=== PATIENT | female | born 1930 | race Caucasian/White ===

== ENCOUNTER 2016-03-17 00:01 | Emergency (ER) | payer MEDICARE, BC ==
[2016-03-17] MEDS ORDERED: Aspirin Low Dose CHEW TAB* 81 MG PO ONE (00:03)
[2016-03-17 00:40] LABS: Hematocrit 37 % (35-47); Hemoglobin 11.9 g/dl (12.0-16.0); Mean Corpuscular HGB Conc 32 g/dl (31-36); Mean Corpuscular Hemoglobin 28 pg (27-31); Mean Corpuscular Volume 85 fL (80-97); Mean Platelet Volume 8 um3 (7.4-10.4); Red Blood Count 4.31 10^6/ul (4.0-5.4); Red Cell Distribution Width 18 % (10.5-15)
[2016-03-17 00:48] LABS: Albumin 4.1 g/dL (3.2-5.2); BUN/Creatinine Ratio 31.3 (8-20); Calcium 9.7 mg/dL (8.6-10.3); EGFR African American 57.8 (>60); Globulin 3.2 g/dL (2-4); Magnesium 2.1 mg/dL (1.9-2.7); Potassium 4.4 mmol/L (3.5-5.0); Total Bilirubin 0.3 mg/dL (0.2-1.0); Total Protein 7.3 g/dL (6.4-8.9)
[2016-03-17 00:50] LABS: Troponin I 0.03 ng/mL (<0.04)
--- NOTE | 2016-03-17 02:02 | ED ---
Lorie Ventura Janilya, scribed for Adolfo Tracy MD on 03/17/16 at 0005 . HPI Chest Pain - HPI Summary HPI Summary: An 85 y/o female was BIBA to [facility] presenting w/ a gradual onset of constant CP for about a few months. The pt was recently seen at the hospital for the same issue. The EKG showed abnormalities. She was advised to see a primary care provider to follow up with the problem. Pt did not oblige. Last night, pt was awoken from her sleep due to CP. She states that pain radiates from her chest to her arms and into her throat. Yesterday at approximately 2100, the pain occurred once again but it resolved within half an hour. - History of Current Complaint Time Seen by Provider: 03/17/16 00:02 Hx Obtained From: Patient, EMS Onset/Duration: Started Weeks Ago, Atraumatic, Still Present Timing: Constant Initial Severity: Moderate Current Severity: Moderate Chest Pain Location: Diffuse Chest Pain Radiates: Yes Chest Pain Radiates To:: Arm, Neck - throat Aggravating Factor(s): Nothing Alleviating Factor(s): Nothing Associated Signs and Symptoms: Positive: Chest Pain - Allergy/Home Medications Allergies/Adverse Reactions: Allergies Allergy/AdvReac Type Severity Reaction Status Date / Time Codeine Allergy GI Upset Verified 10/20/15 07:23 Latex Allergy Hives/Diff. Verified 10/20/15 07:23 Breathing/I tching Sulfa Antibiotics Allergy Hives Verified 10/20/15 07:23 PMH/Surg Hx/FS Hx/Imm Hx Previously Healthy: Yes Endocrine/Hematology History: Reports: Hx Diabetes, Hx Thyroid Disease - hypothyroidism Cardiovascular History: Reports: Hx Hypertension Denies: Hx Congestive Heart Failure GI History: Reports: Hx Gastroesophageal Reflux Disease History: Reports: Hx Chronic Renal Failure Denies: Hx Renal Disease Neurological History: Reports: Other Neuro Impairments/Disorders - parkinson's Psychiatric History: Reports: Hx Depression - Cancer History Cancer Type, Location and Year: skin - Surgical History Surgery Procedure, Year, and Place: HYSTERECTOMY, APPY, CHOLECYSTECTOMY, HX OF COLOSTOMY - Social History Occupation: Retired Alcohol Use: None Substance Use Type: Reports: None Smoking Status (MU): Never Smoked Tobacco Review of Systems Negative: Fever Positive: Chest Pain All Other Systems Reviewed And Are Negative: Yes Physical Exam Triage Information Reviewed: Yes Vital Signs On Initial Exam: Initial Vitals Temp Pulse Resp BP Pulse Ox 97.5 F 73 16 136/79 95 03/17/16 00:02 03/17/16 00:02 03/17/16 00:02 03/17/16 00:02 03/17/16 00:02 Vital Signs Reviewed: Yes Completion Of Physical Exam Limited Due To: Dementia Appearance: Positive: No Pain Distress Skin: Positive: Warm Eyes: Positive: URSZULA ENT: Positive: Hearing grossly normal Neck: Positive: Supple Respiratory/Lung Sounds: Positive: Clear to Auscultation, Breath Sounds Present Cardiovascular: Positive: Normal Abdomen Description: Positive: Nontender, Soft Bowel Sounds: Positive: Present Musculoskeletal: Positive: Strength/ROM Intact Neurological: Positive: Sensory/Motor Intact Diagnostics - Vital Signs Vital Signs Temp Pulse Resp BP Pulse Ox 03/17/16 00:47 68 19 92 03/17/16 00:46 130/55 03/17/16 00:02 97.5 F 73 16 136/79 95 - Laboratory Lab Results: Lab Results 03/17/16 03/17/16 03/17/16 Range/Units 00:15 00:15 00:15 WBC 11.0 H (3.5-10.8) 10^3/ul RBC 4.31 (4.0-5.4) 10^6/ul Hgb 11.9 L (12.0-16.0) g/dl Hct 37 (35-47) % MCV 85 (80-97) fL MCH 28 (27-31) pg MCHC 32 (31-36) g/dl RDW 18 H (10.5-15) % Plt Count 189 (150-450) 10^3/ul MPV 8 (7.4-10.4) um3 Neut % (Auto) 76.5 (38-83) % Lymph % (Auto) 13.0 L (25-47) % [place] % (Auto) 7.2 (1-9) % Eos % (Auto) 2.9 (0-6) % Baso % (Auto) 0.4 (0-2) % Absolute Neuts (auto) 8.4 H (1.5-7.7) 10^3/ul Absolute Lymphs (auto) 1.4 (1.0-4.8) 10^3/ul Absolute Monos (auto) 0.8 (0-0.8) 10^3/ul Absolute Eos (auto) 0.3 (0-0.6) 10^3/ul Absolute Basos (auto) 0 (0-0.2) 10^3/ul Absolute Nucleated RBC 0 10^3/ul Nucleated RBC % 0 Sodium 137 (133-145) mmol/L Potassium 4.4 (3.5-5.0) mmol/L Chloride 104 (101-111) mmol/L Carbon Dioxide 24 (22-32) mmol/L Anion Gap 9 (2-11) mmol/L BUN 36 H (6-24) mg/dL Creatinine 1.15 H (0.51-0.95) mg/dL Est GFR ( Amer) 57.8 (>60) Est GFR (Non-Af Amer) 45.0 (>60) BUN/Creatinine Ratio 31.3 H (8-20) Glucose 167 H (70-100) mg/dL Lactic Acid 1.5 (0.5-2.0) mmol/L Calcium 9.7 (8.6-10.3) mg/dL Magnesium 2.1 (1.9-2.7) mg/dL Total Bilirubin 0.30 (0.2-1.0) mg/dL AST 37 (13-39) U/L ALT 17 (7-52) U/L Alkaline Phosphatase 104 (34-104) U/L Total Creatine Kinase 96 (10-223) U/L Troponin I 0.03 (<0.04) ng/mL Total Protein 7.3 (6.4-8.9) g/dL Albumin 4.1 (3.2-5.2) g/dL Globulin 3.2 (2-4) g/dL Albumin/Globulin Ratio 1.3 (1-3) Result Diagrams: 03/17/16 00:15 03/17/16 00:15 Lab Statement: Any lab studies that have been ordered have been reviewed, and results considered in the medical decision making process. - EKG 0014 Cardiac Rate: NL - 70 bpm EKG Rhythm: Sinus Rhythm Ectopy: None EKG Interpretation: RBBB Re-Evaluation - Re-Evaluation First Eval Change: Improved - painfree Chest Pain Course/Dx - Diagnoses Provider Diagnoses: Chest pain Discharge - Discharge Plan Condition: Stable Disposition: DETENTION FACILITY Patient Education Materials: Chest Pain (ED) Referrals: [facility] [place] [facility] [Outside] Additional Instructions: Follow up with a primary care provider. The documentation as recorded by the Lorie greer Janilya accurately reflects the service I personally performed and the decisions made by me, Adolfo Tracy MD.
[2016-03-17 02:40] VITALS: BP 116/66
--- NOTE | 2016-03-17 07:43 | RAD ---
HISTORY: Chest pain COMPARISONS: None VIEWS: 2: Frontal dual-energy and lateral views of the chest. FINDINGS: CARDIOMEDIASTINAL SILHOUETTE: The cardiomediastinal silhouette is normal. ARMIN: The armin are normal. PLEURA: The costophrenic angles are sharp. No pleural abnormalities are noted. LUNG PARENCHYMA: There is hyperinflation with flattening of the diaphragm and expansion of the AP diameter of the chest. ABDOMEN: The upper abdomen is clear. There is no subphrenic gas. BONES AND SOFT TISSUES: Degenerative changes are noted along the spine. OTHER: None. IMPRESSION: HYPERINFLATION, CONSISTENT WITH COPD. NO ACTIVE CARDIOPULMONARY DISEASE.
== END 2016-03-17 02:42 ==
LOC: ED 00:01
DX: R07.9 Chest pain, unspecified (principal); E11.9 Type 2 diabetes mellitus without complications; E03.9 Hypothyroidism, unspecified; I10 Essential (primary) hypertension; K21.9 Gastro-esophageal reflux disease without esophagitis; G20 Parkinson's disease; Z88.2 Allergy status to sulfonamides; Z79.82 Long term (current) use of aspirin
CPT/HCPCS: 36415; 71020; 80053; 82550; 83605; 83735; 84484; 85025; 93005; 99283; A9270-GY

== ENCOUNTER 2017-01-20 07:11 | Day surgery (SDC) | payer MEDICARE, BC ==
--- NOTE | 2017-01-10 12:41 | HP ---
PREOPERATIVE HISTORY AND PHYSICAL: DATE OF SURGERY/ADMISSION: 01/16/17 [facility] DATE OF OFFICE/ENCOUNTER: 12/22/16 PRIMARY CARE PHYSICIAN: Dr. Luis Funk. ATTENDING SURGEON: Le Corona MD * (DICTATED BY LORE JUAREZ) PROCEDURE: Right wrist carpal tunnel release. CHIEF COMPLAINT: Right hand numbness and tingling. HISTORY OF PRESENT ILLNESS: This is an 86-year-old female who complaints of tingling, numbness and pain in her right hand. This has been going on for quite some time. She had a nerve conduction study done in 2014, which showed severe carpal tunnel syndrome. She is currently residing in a [facility] because of her multiple medical problems including Parkinson's disease. She does not have dementia. She rates her pain is 3 to 4/10. She is seeking a permanent solution to the problem and has consented to proceed with the right wrist carpal tunnel release. We will get clearance from the patient's physician at her assisted living facility, Dr. Luis Funk. PAST MEDICAL HISTORY: 1. Diabetes. 2. Hypothyroidism. 3. Parkinson's. 4. Gout. 5. History of left humerus fracture. 6. Depression/anxiety. 7. Glaucoma. 8. History of chest pain with heart murmur. 9. Chronic kidney disease. 10. Restless legs syndrome. 11. GERD. 12. Peripheral vascular disease. PAST SURGICAL HISTORY: 1. Colostomy secondary to diverticulitis. 2. Back surgery. 3. Hysterectomy. 4. Appendectomy. 5. Knee surgery. 6. Shoulder surgery. CURRENT MEDICATIONS: 1. Acetaminophen 325 mg 2 tabs q.4 hours p.r.n. pain and fever. 2. Allopurinol 300 mg daily. 3. Aspirin adult low strength 81 mg daily. 4. Atorvastatin calcium 40 mg daily. 5. Carbidopa/levodopa ER 50/200 mg t.i.d. 6. Depakote 250 mg daily. 7. Glucagon Emergency 1 mg as directed. 8. Perry 5/325 one tab p.o. q.4 hours p.r.n. 9. Isosorbide mononitrate ER 30 mg 1 tab daily. 10. Latanoprost 0.005% one drop both eyes daily. 11. Lantus 100 units/mL 60 units as directed. 12. Magnesium oxide 400 mg b.i.d. 13. Milk of magnesia 400 mg/5 mL 30 mL p.r.n. 14. MiraLAX 3350 NF 17 g every other day. 15. Multivitamin daily. 16. Nitrostat 0.4 mg 1 sublingual q.5 minutes up to 3 doses p.r.n. 17. NovoLog 100 units/mL 18 units with breakfast, 24 units with lunch, 22 units with dinner. 18. Pramipexole dihydrochloride 1.5 mg 3 times a day. 19. Sertraline HCl 100 mg daily. 20. Synthroid 88 mcg daily. 21. Toprol-XL 25 mg daily. 22. Vitamin D3 1000 units 2 daily. ALLERGIES: CODEINE, INDOMETHACIN, LATEX, LISINOPRIL, SULFA ANTIBIOTICS, reactions unknown. FAMILY MEDICAL HISTORY: Noncontributory. SOCIAL HISTORY: The patient resides at [facility] at an assisted living facility. She denies tobacco use, recreational drug use and does not drink alcohol. REVIEW OF SYSTEMS: General: Negative for fevers, chills, or night sweats. Reports some trouble with anesthesia in the past when she had her colostomy performed; however, she is not quite clear with details. HEENT: Negative for headache, lightheadedness, or syncopal episodes. Integumentary: Negative for abrasions, lesions, or open wounds. Cardiothoracic: Positive for history of chest pain. No chest pain currently. Negative for hypertension, palpitations, or edema. Pulmonary: Negative for shortness of breath with exertion, chronic cough, COPD. GI: Negative for nausea, vomiting, or diarrhea. Positive for GERD. : Positive for history of UTIs. Negative for nocturia, urinary frequency or urgency, history of chronic kidney disease. Musculoskeletal: Positive for current complaint. Positive for history of left humerus fracture. Neurologic: Positive for dysesthesias in right hand. Negative for history of seizure, stroke, or epilepsy. Positive for anxiety/depression. Endocrine: Positive for diabetes type 1 and hypothyroidism. Hematologic: Negative for easy bruising, anemia, excessive bleeding, or history of DVT. Infectious Disease: Negative for history of MRSA, hepatitis C, or HIV. PHYSICAL EXAMINATION GENERAL: Well-developed, well-nourished 86-year-old female in no acute distress. She ambulates with a walker unassisted, but mainly is in a wheelchair. VITAL SIGNS: Height 5 feet 4 inches, weight 199 pounds, pulse rate 68, blood pressure 138/88. HEENT: Normocephalic, atraumatic. Pupils are equal, round and reactive to light and accommodation. Extraocular movements are intact. Throat is clear. NECK: Supple. No palpable lymph nodes. PULMONARY: Lungs are clear to auscultation bilaterally. No wheezes, rales, or rhonchi. CARDIOVASCULAR: Regular rate and rhythm. S1, S2. Murmur detected with auscultation. No rubs or gallops. No edema. ABDOMEN: Positive bowel sounds, soft, nontender. MUSCULOSKELETAL: On inspection of her right upper extremity and right hand, she has marked thenar wasting, weakness with thumb abduction, positive Tinel's sign at the median nerve of the wrist. She has trouble making a full fist due to some arthritic changes in her fingers. Her wrist motion is mildly limited. NEUROLOGIC: Alert and oriented x3. Cranial nerves II through XII are intact. IMPRESSION: Right carpal tunnel syndrome. PLAN: The patient is scheduled to undergo a right wrist carpal tunnel release with Dr. Corona on 01/16/17. She will return to the office 10 to 14 days postop for followup and suture removal. The patient has oxycodone and tramadol for other prescribers that she will plan on using for postoperative pain if necessary and we will get medical clearance prior to proceeding with surgery from Dr. Luis Funk, the physician at [facility]. LORE JUAREZ [id number]/KEHINDE #: [id number] LINDA
[~2017-01-20 07:11] MED LIST: Buffered Lidocaine 0.9% SYRIN* 5 ML/SYR SYRINGE INTRADERM ONE
[2017-01-20] MEDS ORDERED: Lidocaine 1% INJ* 10 MG/ML 30 ML SDV ONE (08:02)
[2017-01-20] MEDS ORDERED: Metoprolol Succinate XL TAB* 25 MG ONE (08:07)
[2017-01-20] MEDS ORDERED: fentaNYL* 50 MCG/ML 2 ML VIAL (100 MCG VIAL) ONE (08:17)
[2017-01-20] MEDS ORDERED: Propofol* 10 MG/ML 20 ML BTL IV PUSH ONE (08:17)
[2017-01-20] MEDS ORDERED: Lidocaine 2% PF * 5 ML VIAL ONE (08:17)
[2017-01-20 09:53] VITALS: BP 142/43
--- NOTE | 2017-01-21 01:22 | OP ---
DATE OF OPERATION: 01/20/17 [facility] DATE OF : 32 SURGEON: Le Corona MD [facility] MANAGER: LORE Wong ANESTHESIA: Local MAC. PRE-OP DIAGNOSIS: Right carpal tunnel syndrome. POST-OP DIAGNOSIS: Right carpal tunnel syndrome. OPERATIVE PROCEDURE: Right carpal tunnel release. INDICATIONS: Ayanna is an 86-year-old female with numbness and tingling in the median nerve distribution of her right hand. She presents for right carpal tunnel release. ESTIMATED BLOOD LOSS: Zero. TOURNIQUET TIME: 5 minutes. DESCRIPTION OF PROCEDURE: The patient was brought to the operating room and was given a sedation anesthetic and a local infiltration of 10 cc of 1% plain lidocaine in the palm of her right hand. Skin of her right hand and forearm was prepped and draped in the usual sterile fashion. The hand and forearm were exsanguinated and tourniquet elevated to 250 mmHg. A longitudinal incision was made in the palm in line with the ring finger. We dissected through the subcutaneous tissue sharply with a knife and then more proximally with the scissors. The nerve was dissected free from surrounding tissue and there was an area of significant compression at the mid portion of the ligament. The wound was irrigated and the skin edges were reapproximated with 4-0 nylon suture. The wound was dressed with Xeroform, 4x4, Webril, and an Hernando wrap. The patient tolerated the procedure well and was brought to the recovery room in good condition. [id number]/[facility] #: [id number] MTDD
== END 2017-01-20 09:21 | disposition home or self-care (01) ==
LOC: OREAST 07:11
PROVIDERS: ATTEND Orthopaedic Surgery
DX: G56.01 Carpal tunnel syndrome, right upper limb (principal); E11.9 Type 2 diabetes mellitus without complications; Z79.4 Long term (current) use of insulin; E03.9 Hypothyroidism, unspecified; G20 Parkinson's disease; M10.9 Gout, unspecified; F41.8 Other specified anxiety disorders; H40.9 Unspecified glaucoma; R01.1 Cardiac murmur, unspecified; R07.9 Chest pain, unspecified; N18.9 Chronic kidney disease, unspecified; G25.81 Restless legs syndrome; I73.9 Peripheral vascular disease, unspecified; K21.9 Gastro-esophageal reflux disease without esophagitis
CPT/HCPCS: J2704; J3010

== ENCOUNTER 2017-04-18 15:16 | Inpatient (IN) | payer MEDICARE, BC ==
[2017-04-18] MEDS ORDERED: NS 0.9% 1000 ML* 1,000 ML IV ONE ×2 (15:56→18:26)
[2017-04-18 16:32] LABS: ABS Basophils 0.1 10^3/ul (0-0.2); ABS Eosinophils 0.3 10^3/ul (0-0.6); ABS Lymphocytes 1.3 10^3/ul (1.0-4.8); ABS Monocytes 0.7 10^3/ul (0-0.8); ABS Neutrophils 6.5 10^3/ul (1.5-7.7); ABS Nucleated RBC 0 10^3/ul; Eosinophil % 3.1 % (0-6); Hematocrit 35 % (35-47); Hemoglobin 11.3 g/dl (12.0-16.0); Lymphocyte % 14.2 % (25-47); Mean Corpuscular HGB Conc 33 g/dl (31-36); Mean Corpuscular Hemoglobin 28 pg (27-31); Mean Corpuscular Volume 84 fL (80-97); Mean Platelet Volume 8 um3 (7.4-10.4); Nucleated Red Blood Cells % 0.1; Platelet Count 195 10^3/ul (150-450); Red Cell Distribution Width 18 % (10.5-15); White Blood Count 8.9 10^3/ul (3.5-10.8)
[2017-04-18 16:40] LABS: INR 0.94 (0.77-1.02)
[2017-04-18 16:42] LABS: EGFR Non-African American 32.3 (>60)
[2017-04-18] MEDS ORDERED: Iodixanol* (CONTRAST) 320 MG/ML 100 ML SDV IV ONE (17:13)
[2017-04-18 17:17] LABS: Urine Appearance Cloudy; Urine Blood Negative (Negative); Urine Color Yellow; Urine Ketones Negative (Negative); Urine Protein 2+(100 mg/dL) (Negative); Urine Urobilinogen Negative (Negative)
--- NOTE | 2017-04-18 17:49 | RAD ---
CLINICAL HISTORY: Left sided abdominal pain, hernia, colostomy COMPARISON: October 20, 2015 TECHNIQUE: Multiple contiguous axial CT scans were obtained of the abdomen and pelvis after the administration of intravenous contrast. Coronal and sagittal multiplanar reformations are submitted for review. Oral contrast was administered. Delayed images were obtained through the abdomen and pelvis. FINDINGS: LUNG BASES: The lung bases are clear. LIVER: The liver is diffusely low in attenuation compared to the spleen. There are no focal hepatic parenchymal masses. BILE DUCTS: There is mild intrahepatic biliary dilatation. There is ectasia of the common duct up to 1 cm. GALLBLADDER: The gallbladder is not clearly visualized. PANCREAS: There is fatty atrophy of the pancreas. SPLEEN: Normal in size and appearance. UPPER GI TRACT: Evaluation of the gastrointestinal tract is limited by incomplete gastric distention. The upper GI tract is unremarkable. SMALL BOWEL AND MESENTERY: The small bowel is normal in contour, course, and caliber. There is no obstruction or dilatation. COLON: The colon is normal in contour, course, caliber. There is no pericolonic inflammatory change. A colostomy is noted ADRENALS: There is a left adrenal nodule, measuring approximately 2.6 cm, stable from the previous examination. KIDNEYS: There is simple renal cyst on the right. There is no appreciable hydronephrosis or nephrolithiasis. BLADDER: The bladder is smooth in contour. PELVIC ORGANS: The pelvic organs are not visualized. AORTA: There is calcific atherosclerotic disease of the abdominal aorta and its branches, without aneurysmal dilatation IVC: Unremarkable LYMPH NODES: There is no lymphadenopathy by size criteria. ABDOMINAL WALL: There is a large right sided ventral hernia containing the majority of the small bowel large bowel and portions of the stomach with the associated mesentery. There is a second left-sided ventral hernia that appears to be a parastomal hernia, containing a portion of large bowel. There is no appreciable evidence of obstruction. The appearance is similar to the previous examination. BONES AND SOFT TISSUES: There is diffuse osteopenia. Degenerative changes are noted of the spine. The patient is status post laminectomy and spinal fusion. OTHER: None IMPRESSION: 1. AGAIN NOTED ARE LARGE VENTRAL HERNIAS CONTAINING THE MAJORITY OF THE BOWEL WITHOUT OBSTRUCTION. 2. THERE IS MILD BILIARY DILATATION. THERE IS NO APPRECIABLE OBSTRUCTING MASS OR STONE. 3. POSTSURGICAL CHANGE. 4. ATHEROSCLEROSIS. 5. STABLE LEFT ADRENAL NODULE
[2017-04-18] MEDS ORDERED: Morphine INJ* 4 MG/ML 1 ML CARPUJECT IV ONE (18:26)
[2017-04-18] MEDS ORDERED: Ondansetron INJ* 2 MG/ML VIAL IV ONE (18:26)
[2017-04-18] MEDS ORDERED: Morphine INJ* 2 MG/ML 1 ML CARPUJECT ONE (18:31)
[2017-04-18] MEDS ORDERED: Morphine INJ* 2 MG/ML 1 ML CARPUJECT IV ONE (18:33)
[2017-04-18] MEDS ORDERED: Dextrose 50% Syringe 50 ML* 25 GM/50 ML SYRINGE IV PUSH PRN (19:59)
[2017-04-18] MEDS ORDERED: Nitroglycerin TAB 0.4 MG* 0.4 MG TAB SL PRN (20:00)
[2017-04-18] MEDS ORDERED: ALPRAZolam TAB* 0.25 MG PO PRN (20:00)
[2017-04-18] MEDS ORDERED: Insulin GLARGINE(*) 1 UNITS UNIT SUBCUT SCH (20:00)
[2017-04-18] MEDS ORDERED: Acetaminophen TAB* 325 MG PO PRN (20:00)
[2017-04-18] MEDS ORDERED: Magnesium Hydroxide LIQ* 30 ML UDC PO PRN (20:00)
[2017-04-18] MEDS ORDERED: Ondansetron INJ* 2 MG/ML VIAL IV PRN (20:05)
--- NOTE | 2017-04-18 21:35 | ED ---
Shun Ventura Sixian, scribed for Elder Ponce MD on 04/18/17 at 1553 . Abdominal Pain/Female - HPI Summary HPI Summary: This patient is an 86 year old F BIBA to ED with a chief complaint of left- sided abdominal pain since last night. Pt reports that its like a knife went through my stomach. The patient rates the pain 5/10 in severity. Symptoms aggravated and alleviated by nothing. Patient reports normal BM, dry mouth. Patient denies fever, chills. - History of Current Complaint Chief Complaint: EDAbdPain Stated Complaint: ABD PAIN Time Seen by Provider: 04/18/17 15:33 Hx Obtained From: Patient Onset/Duration: Gradual Onset, Lasting Days, Still Present Timing: Constant Severity Currently: Moderate Pain Intensity: 5 Pain Scale Used: 0-10 Numeric Location: Other - L-sided Aggravating Factor(s): Nothing Alleviating Factor(s): Nothing Associated Signs and Symptoms: Positive: Other: - Patient reports normal BM, dry mouth. Patient denies fever, chills Allergies/Adverse Reactions: Allergies Allergy/AdvReac Type Severity Reaction Status Date / Time latex Allergy Intermediate Hives/Diff. Verified 04/18/17 18:32 Breathing/I tching Sulfa (Sulfonamide Allergy Intermediate Hives/Rash Verified 04/18/17 18:32 Antibiotics) codeine AdvReac Mild GI Upset Verified 04/18/17 18:32 Home Medications: Home Medications Cholecalciferol TAB* [Vitamin D TAB*] 2,000 units PO QAM 04/18/17 [History Confirmed 04/18/17] Divalproex DR TAB(*) [Depakote DR TAB(*)] 250 mg PO .QPM WITH FOOD 04/18/17 [ History Confirmed 04/18/17] Ibuprofen TAB* [Motrin TAB* 600 MG] 600 mg PO Q8H PRN 04/18/17 [History Confirmed 04/18/17] Insulin ASPART (NF) [Novolog (NF)] 20 units SUBCUT 0800 04/18/17 [History Confirmed 04/18/17] Insulin ASPART (NF) [Novolog (NF)] 24 units SUBCUT 1200,1800 04/18/17 [History Confirmed 04/18/17] Levothyroxine TAB* [Synthroid TAB*] 125 mcg PO QAM 04/18/17 [History Confirmed 04/18/17] Metoprolol Succinate XL TAB* [Toprol XL TAB*] 25 mg PO QAM 04/18/17 [History Confirmed 04/18/17] oxyCODONE TAB* [Roxycodone TAB 5 mg*] 10 mg PO Q2H PRN 04/18/17 [History Confirmed 04/18/17] PMH/Surg Hx/FS Hx/Imm Hx Endocrine/Hematology History: Reports: Hx Diabetes, Hx Thyroid Disease - hypothyroidism Cardiovascular History: Reports: Hx Cardiomegaly, Hx Congestive Heart Failure, Hx Hypertension GI History: Reports: Hx Gastroesophageal Reflux Disease, Hx Hiatal Hernia, Other GI Disorders - has a colostomy History: Reports: Hx Chronic Renal Failure Denies: Hx Renal Disease Musculoskeletal History: Reports: Hx Arthritis, Other Musculoskeletal History - gout Sensory History: Reports: Hx Cataracts, Hx Contacts or Glasses, Hx Glaucoma, Hx Hearing Aid Opthamlomology History: Reports: Hx Cataracts, Hx Contacts or Glasses, Hx Glaucoma Neurological History: Reports: Hx Headaches, Hx Migraine, Hx Nerve Disease - restless legs syndrome, Hx Seizures - myoclonic, Other Neuro Impairments/ Disorders - parkinson's Psychiatric History: Reports: Hx Anxiety, Hx Depression - Cancer History Cancer Type, Location and Year: skin Hx Chemotherapy: No - Surgical History Surgery Procedure, Year, and Place: HYSTERECTOMY, APPY, CHOLECYSTECTOMY, HX OF COLOSTOMY. partial bowel obstruction,. eye surgery x3 Hx Anesthesia Reactions: No Infectious Disease History: No Infectious Disease History: Denies: Traveled Outside the [place] in Last 30 Days - Social History Alcohol Use: None Substance Use Type: Reports: None Smoking Status (MU): Never Smoked Tobacco Review of Systems Constitutional: Negative - chills Negative: Chills Positive: Other - dry mouth Positive: Abdominal Pain Genitourinary: Other - Normal BM All Other Systems Reviewed And Are Negative: Yes Physical Exam - Summary Physical Exam Summary: General: well-appearing, mild pain distress Skin: warm, color reflects adequate perfusion, dry Head: normal Eyes: EOMI, URSZULA ENT: oral mucousal dry Neck: supple, nontender Respiratory: CTA, breath sounds present Cardiovascular: RRR Abdomen: soft, L upper tender to palpation Bowel: Hypoactive bowel sounds. Colectomy bag with minimal stool/light brown in color. Musculoskeletal: normal, strength/ROM intact Neurological: normal, sensory/motor intact, A&O x3 Psychological: affect/mood appropriate Triage Information Reviewed: Yes Vital Signs On Initial Exam: Initial Vitals Temp Pulse Resp BP Pulse Ox 98.4 F 63 16 100/33 91 04/18/17 15:34 04/18/17 15:34 04/18/17 15:34 04/18/17 15:34 04/18/17 15:34 Vital Signs Reviewed: Yes Diagnostics - Vital Signs Vital Signs Temp Pulse Resp BP Pulse Ox 04/18/17 15:34 98.4 F 63 16 100/33 91 - Laboratory Lab Results: Lab Results 04/18/17 04/18/17 04/18/17 Range/Units 16:15 16:15 16:15 WBC 8.9 (3.5-10.8) 10^3/ul RBC 4.10 (4.0-5.4) 10^6/ul Hgb 11.3 L (12.0-16.0) g/dl Hct 35 (35-47) % MCV 84 (80-97) fL MCH 28 (27-31) pg MCHC 33 (31-36) g/dl RDW 18 H (10.5-15) % Plt Count 195 (150-450) 10^3/ul MPV 8 (7.4-10.4) um3 Neut % (Auto) 73.8 (38-83) % Lymph % (Auto) 14.2 L (25-47) % [place] % (Auto) 8.2 H (0-7) % Eos % (Auto) 3.1 (0-6) % Baso % (Auto) 0.7 (0-2) % Absolute Neuts (auto) 6.5 (1.5-7.7) 10^3/ul Absolute Lymphs (auto) 1.3 (1.0-4.8) 10^3/ul Absolute Monos (auto) 0.7 (0-0.8) 10^3/ul Absolute Eos (auto) 0.3 (0-0.6) 10^3/ul Absolute Basos (auto) 0.1 (0-0.2) 10^3/ul Absolute Nucleated RBC 0 10^3/ul Nucleated RBC % 0.1 INR (Anticoag Therapy) 0.94 (0.77-1.02) APTT 36.6 H (26.0-36.3) seconds Sodium 136 (133-145) mmol/L Potassium 4.9 (3.5-5.0) mmol/L Chloride 104 (101-111) mmol/L Carbon Dioxide 26 (22-32) mmol/L Anion Gap 6 (2-11) mmol/L BUN 33 H (6-24) mg/dL Creatinine 1.53 H (0.51-0.95) mg/dL Est GFR ( Amer) 41.5 (>60) Est GFR (Non-Af Amer) 32.3 (>60) BUN/Creatinine Ratio 21.6 H (8-20) Glucose 77 (70-100) mg/dL Lactic Acid (0.5-2.0) mmol/L Calcium 9.3 (8.6-10.3) mg/dL Total Bilirubin 0.30 (0.2-1.0) mg/dL AST 28 (13-39) U/L ALT 3 L (7-52) U/L Alkaline Phosphatase 86 (34-104) U/L C-Reactive Protein 4.92 (< 5.00) mg/L Total Protein 6.7 (6.4-8.9) g/dL Albumin 3.7 (3.2-5.2) g/dL Globulin 3.0 (2-4) g/dL Albumin/Globulin Ratio 1.2 (1-3) Lipase < 10 L (11.0-82.0) U/L Urine Color Urine Appearance Urine pH (5-9) Ur Specific [place] (1.010-1.030) Urine Protein (Negative) Urine Ketones (Negative) Urine Blood (Negative) Urine Nitrate (Negative) Urine Bilirubin (Negative) Urine Urobilinogen (Negative) Ur Leukocyte Esterase (Negative) Urine WBC (Auto) (Absent) Urine RBC (Auto) (Absent) Ur Squamous Epith Cells (Absent) Urine Bacteria (Absent) Urine Glucose (Negative) Urine Ascorbic Acid (Negative) 04/18/17 04/18/17 Range/Units 16:15 16:50 WBC (3.5-10.8) 10^3/ul RBC (4.0-5.4) 10^6/ul Hgb (12.0-16.0) g/dl Hct (35-47) % MCV (80-97) fL MCH (27-31) pg MCHC (31-36) g/dl RDW (10.5-15) % Plt Count (150-450) 10^3/ul MPV (7.4-10.4) um3 Neut % (Auto) (38-83) % Lymph % (Auto) (25-47) % [place] % (Auto) (0-7) % Eos % (Auto) (0-6) % Baso % (Auto) (0-2) % Absolute Neuts (auto) (1.5-7.7) 10^3/ul Absolute Lymphs (auto) (1.0-4.8) 10^3/ul Absolute Monos (auto) (0-0.8) 10^3/ul Absolute Eos (auto) (0-0.6) 10^3/ul Absolute Basos (auto) (0-0.2) 10^3/ul Absolute Nucleated RBC 10^3/ul Nucleated RBC % INR (Anticoag Therapy) (0.77-1.02) APTT (26.0-36.3) seconds Sodium (133-145) mmol/L Potassium (3.5-5.0) mmol/L Chloride (101-111) mmol/L Carbon Dioxide (22-32) mmol/L Anion Gap (2-11) mmol/L BUN (6-24) mg/dL Creatinine (0.51-0.95) mg/dL Est GFR ( Amer) (>60) Est GFR (Non-Af Amer) (>60) BUN/Creatinine Ratio (8-20) Glucose (70-100) mg/dL Lactic Acid 1.0 (0.5-2.0) mmol/L Calcium (8.6-10.3) mg/dL Total Bilirubin (0.2-1.0) mg/dL AST (13-39) U/L ALT (7-52) U/L Alkaline Phosphatase (34-104) U/L C-Reactive Protein (< 5.00) mg/L Total Protein (6.4-8.9) g/dL Albumin (3.2-5.2) g/dL Globulin (2-4) g/dL Albumin/Globulin Ratio (1-3) Lipase (11.0-82.0) U/L Urine Color Yellow Urine Appearance Cloudy Urine pH 6.0 (5-9) Ur Specific [place] 1.010 (1.010-1.030) Urine Protein 2+(100 mg/dl) A (Negative) Urine Ketones Negative (Negative) Urine Blood Negative (Negative) Urine Nitrate Negative (Negative) Urine Bilirubin Negative (Negative) Urine Urobilinogen Negative (Negative) Ur Leukocyte Esterase 3+ A (Negative) Urine WBC (Auto) 3+(>20/hpf) A (Absent) Urine RBC (Auto) Absent (Absent) Ur Squamous Epith Cells Present A (Absent) Urine Bacteria Absent (Absent) Urine Glucose Negative (Negative) Urine Ascorbic Acid * A (Negative) Result Diagrams: 04/18/17 16:15 04/18/17 16:15 Lab Statement: Any lab studies that have been ordered have been reviewed, and results considered in the medical decision making process. - CT abd/pel CT Interpretation Completed By: Radiologist - 1. AGAIN NOTED ARE LARGE VENTRAL HERNIAS CONTAINING THE MAJORITY OF THE BOWEL WITHOUT OBSTRUCTION. 2. THERE IS MILD BILIARY DILATATION. THERE IS NO APPRECIABLE OBSTRUCTING MASS OR STONE. ED physician has reviewed this radiology report. Abdominal Pain Fem Course/Dx - Course Course Of Treatment: BP noted and advised to follow up with PCP. Medications reviewed. Allergies noted. ADMIT HOSPITALIST. - Diagnoses Provider Diagnoses: Abdominal pain - Provider Notifications Discussed Care Of Patient With: Jose Saucedo Time Discussed With Above Provider: 19:23 - Consulted Dr. Saucedo who agrees to see the pt in the ER. Instructed by Provider To: MD Will See In ED Discharge - Discharge Plan Condition: Stable Disposition: ADMITTED TO [facility] The documentation as recorded by the Shun greer Sixian accurately reflects the service I personally performed and the decisions made by me, Elder Ponce MD.
[2017-04-18] MEDS: D5LR 1000 ML BAG* 1,000 ML IV SCH (22:28)
[2017-04-18] MEDS: Divalproex DR TAB(*) 250 MG PO SCH (22:29)
[2017-04-18] MEDS: Heparin VIAL(*) 5000 UNITS/ML VIAL (FIVE THOUSAND) SUBCUT SCH (22:31)
[2017-04-18] MEDS: Pramipexole TAB* 0.5 MG PO SCH (22:31)
[2017-04-18] MEDS: Magnesium Oxide TAB* 400 MG PO SCH (22:31)
[2017-04-18] MEDS: Insulin LISPRO* 1 UNITS UNIT SUBCUT SCH (22:33)
[2017-04-18] MEDS: Latanoprost 0.005%* 2.5 ml BTL BOTH EYES SCH (23:09)
--- NOTE | 2017-04-19 05:27 | HP ---
CC: Dr. Durant, [facility] HISTORY AND PHYSICAL: DATE OF ADMISSION: 04/18/17 CHIEF COMPLAINT: Abdominal pain. HISTORY OF PRESENT ILLNESS: Ms. Peck is an 86-year-old woman who presented to emergency department today with abdominal pain at level 7/10 in a generalized pattern. The pain has been at this higher intolerable level since last night in an intermittent fashion, lasting from 30 to 60 minutes. She tends to have mild or 4 to 5/10 abdominal pain for months or years and this generally responds to Tylenol. Today, she had to take her Tramadol and oxycodone for pain and this helps for hour or so, but then the pain returns. She has not had any associated vomiting or nausea. She has had no bowel movements for 2 days, but denies constipation. She then had some liquid stool in the emergency department. Denies any fevers or chills, but she does have anorexia. The patient had diverticulitis 3 years ago, which required open surgery and colostomy. The surgery was complicated by infections and she had a second laparotomy and had a long hospital stay. She states she was in and out of the hospital for a year. She had 7 transfusions over a year. She states her surgeon is in [place] and she is to live in [place], but she now lives at the [facility] with her . She cannot remember the name of her surgeon. The patient in the ER had CT of the abdomen and labs and was given morphine 2 mg IV for this pain. The pain was improved with the morphine, but she had oxygen saturation of 88% to 89% on room air. We were asked to see the patient to assess for observation and admission, probably related to the desaturation on morphine. Review of the recent records showed she was admitted in December with carpal tunnel surgery, most recently at this hospital. PAST MEDICAL HISTORY: Includes type 2 diabetes, depression, anxiety, gout, chronic kidney disease, hypothyroidism, Parkinson's disease, restless leg syndrome, peripheral vascular disease and GERD. 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 MEDICATIONS: On admission are, 1. Acetaminophen 650 mg q.4 as needed. 2. Allopurinol 300 mg p.o. q.p.m. 3. Xanax 0.25 mg p.o. q.h.s. p.r.n. anxiety. 4. Aspirin 81 mg p.o. every day. 5. Carbidopa/levodopa 50/200 one tab p.o. t.i.d. 6. Vitamin D 2000 units daily. 7. Folic acid 250 mg p.o. q.p.m. 8. Glucagon as needed for hypoglycemia. 9. Ibuprofen 600 mg p.o. q.8 hours p.r.n. 10. NovoLog 20 units subcu with breakfast and 24 units subcu with lunch and dinner. 11. Insulin Lantus 60 units subcu q.p.m. 12. Isosorbide mononitrate 30 mg p.o. q.a.m. 13. Xalatan 1 drop both eyes daily. 14. Levothyroxine 125 mcg p.o. q.a.m. 15. Milk of magnesia 30 mL p.o. q.8 hours p.r.n. dyspepsia. 16. Magnesium oxide 400 mg p.o. b.i.d. 17. Toprol-XL 25 mg p.o. q.a.m. 18. Multivitamin one tab p.o. every day. 19. Nitroglycerin 0.4 mg sublingual q.5 minutes x3 p.r.n. chest pain. 21. Oxycodone 10 mg p.o. q.2 hours p.r.n. pain. 22. MiraLAX 17 g p.o. as needed for constipation. 23. Mirapex 1.5 mg p.o. t.i.d. 24. Sertraline 100 mg p.o. q.a.m. 25. Tramadol 50 mg p.o. q.4 hours p.r.n. pain. ALLERGIES: Include CODEINE, INDOCIN, SULFA, LATEX and LISINOPRIL. FAMILY HISTORY: Notable for mother, father, and 4 siblings with diabetes. Brother of complications with diabetes. Father of heart attack. Mother of stomach cancer. SOCIAL HISTORY: She is a retired hospital worker. She is . Her lives in [facility] as well. She has four children. Her daughter, Namrata, is her healthcare proxy. She has no history of alcohol or tobacco use or drug use. REVIEW OF SYSTEMS: The patient denies any fevers but has anorexia. Denies any weight loss. The patient denies any chest pain or palpitations. The patient denies any cough, hemoptysis, or shortness of breath. Remainder of 14-point review of systems is negative other than that mentioned in the HPI. PHYSICAL EXAMINATION GENERAL: She is alert, in no acute distress. VITAL SIGNS: Temperature 36.9, pulse 60, respirations 16, blood pressure is 145 /52, O2 sats 89% on room air and 91% on 1 L. HEENT: Head is normocephalic, atraumatic. Sclerae anicteric. Pupils equal, round, reactive to light and accommodation. Oropharynx is moist, no lesions. NECK: No JVD. No carotid bruits. No thyromegaly. LUNGS: Clear to auscultation and percussion bilaterally. HEART: Regular rate and rhythm without murmurs or gallops. ABDOMEN: Soft. There is a massive ventral incisional hernia taking up most of the right side of the abdomen. There is right lower quadrant colostomy with good stool output and there is tenderness in the hernia, but positive bowel sounds. No rebound. EXTREMITIES: No peripheral edema. Dorsalis pedis pulses are absent. Posterior tibial pulses are absent. NEUROLOGIC: Cranial nerves II through XII are intact. Motor strength is 5/5 throughout. Deep tendon reflexes are symmetric. DIAGNOSTIC STUDIES/LAB DATA: Sodium 136, potassium 4.9, chloride 104, bicarb 26, BUN 33, creatinine 1.54, glucose is 77, calcium 9.3. Lactic acid 1.0. Lipase is less than 10, CRP is 4.92, albumin 3.7, AST 28, ALT 3. INR 0.94, PT 36.6. White count is 8.9, hemoglobin 11.3, hematocrit 35%, platelets are 195. Urinalysis shows positive leuk esterase, 2+ protein. 3+ leuk esterase. Urine white cells 3+. Abdomen and pelvis CT shows a large ventral incisional hernia with no obstruction. There is some bile duct dilatation, but history of cholecystectomy. No acute findings. ASSESSMENT AND PLAN: An 86-year-old woman presenting with abdominal pain that appears to be benign given her normal laboratory tests and CAT scan. Normally differential would include diverticulitis, perforation, colitis or gastric ulcer or gastritis. At this point, she may have constipation or mesenteric adenitis. She may simply be having pain from her hernia. The patient will be admitted to the hospital for observation given her hypoxic response to morphine treatment. I will give her lower dose morphine and hold her other oral pain medicines for now. She does not need any laxatives. At this point, she is having liquid stools in the ER. The patient has type 2 diabetes and does have poor p.o. intake. I will adjust her Lantus dose and give her low dose sliding scale insulin rather than her normal levels. She will have a p.o. intake monitored and we will increase back to normal doses if she eats better. The patient's creatinine is above baseline likely due to dehydration. She will have D5 to prevent hypoglycemia and monitor with Lactated Ringer's to give her some volume resuscitation and recheck creatinine in the morning. Her code status is do not resuscitate. The MOLST form was updated and validated from the [facility]. She is a high risk for DVT given her age and her obesity. She will have subcutaneous heparin while she is here in the hospital. [id number]/[facility] [place] #: [id number] MTDD
[2017-04-19] MEDS: Heparin VIAL(*) 5000 UNITS/ML VIAL (FIVE THOUSAND) SUBCUT SCH ×3 (05:43→21:45)
[2017-04-19] MEDS: Levothyroxine TAB* 125 MCG TAB PO SCH (05:44)
[2017-04-19] MEDS: Morphine INJ* 2 MG/ML 1 ML CARPUJECT IV PRN ×2 (06:08→11:31)
[2017-04-19 06:26] LABS: EGFR Non-African American 43.5 (>60)
[2017-04-19] MEDS: D5LR 1000 ML BAG* 1,000 ML IV SCH (09:38)
[2017-04-19] MEDS: Sertraline* 100 MG TAB PO SCH (09:39)
[2017-04-19] MEDS: Insulin LISPRO* 1 UNITS UNIT SUBCUT SCH ×4 (09:39→21:45)
[2017-04-19] MEDS: Carbidopa/Levodop CR 50/200(*) TAB.CR PO SCH ×3 (09:39→17:44)
[2017-04-19] MEDS: Isosorbide Mononitrate ER TAB* 30 MG PO SCH (09:40)
[2017-04-19] MEDS: Pramipexole TAB* 0.5 MG PO SCH ×3 (09:40→20:15)
[2017-04-19] MEDS: Metoprolol Succinate XL TAB* 25 MG PO SCH (09:40)
[2017-04-19] MEDS: Magnesium Oxide TAB* 400 MG PO SCH ×2 (09:40→20:15)
[2017-04-19] MEDS: Cholecalciferol TAB* 1000 UNITS PO SCH (09:54)
--- NOTE | 2017-04-19 12:15 | PN ---
Subjective Date of Service: 04/19/17 Interval History: Pain in abdomen and both legs still severe. Objective Active Medications: Acetaminophen (Tylenol Tab*) 650 mg PO Q4H PRN PRN Reason: PAIN Last Admin: 04/19/17 03:36 Dose: 650 mg Allopurinol (Zyloprim Tab*) 300 mg PO QPM [facility] Alprazolam (Xanax Tab*) 0.25 mg PO BEDTIME PRN PRN Reason: ANXIETY Last Admin: 04/18/17 22:31 Dose: 0.25 mg Aspirin (Aspirin Low Dose Tab*) 81 mg PO QPM [facility] Carbidopa/Levodopa (Sinemet Cr 50/200(*)) 1 tab.cr PO 0800,1300,1700 [facility] Last Admin: 04/19/17 09:39 Dose: 1 tab.cr Cholecalciferol (Vitamin D Tab*) 2,000 units PO QAM [facility] Last Admin: 04/19/17 09:54 Dose: 2,000 units Dextrose (D50w Syringe 50 Ml*) 12.5 gm IV PUSH .FOR FS < 60 - SS PRN PRN Reason: FS < 60 Divalproex Sodium (Depakote Dr Tab(*)) 250 mg PO DAILY@1999 [facility] Last Admin: 04/18/17 22:29 Dose: 250 mg Fentanyl (Duragesic Patch 12 Mcg/Hr *) 12 mcg TRANSDERM Q72H [facility] Heparin Sodium (Porcine) (Heparin Vial(*)) 5,000 units SUBCUT Q8HR [facility] Last Admin: 04/19/17 05:43 Dose: 5,000 units Insulin Glargine (Lantus(*)) 40 units SUBCUT 2000 [facility] Insulin Human Lispro (Humalog*) 0 units SUBCUT ACHS [facility] PRN Reason: Protocol Last Admin: 04/19/17 09:39 Dose: 2 units Isosorbide Mononitrate (Imdur Er Tab*) 30 mg PO QAM [facility] Last Admin: 04/19/17 09:40 Dose: 30 mg Latanoprost (Xalatan 0.005%*) 1 drop BOTH EYES BEDTIME [facility] Last Admin: 04/18/17 23:09 Dose: 1 drop Levothyroxine Sodium (Synthroid Tab*) 125 mcg PO DAILY@0600 [facility] Last Admin: 04/19/17 05:44 Dose: 125 mcg Magnesium Hydroxide (Milk Of Magnesia Liq*) 30 ml PO Q8H PRN PRN Reason: CONSTIPATION Magnesium Oxide (Magox 400 Tab*) 400 mg PO BID [facility] Last Admin: 04/19/17 09:40 Dose: 400 mg Metoprolol Succinate (Toprol Xl Tab*) [facility] Last Admin: 04/19/17 09:40 Dose: 25 mg Nitroglycerin (Nitroglycerin Tab 0.4 Mg*) 0.4 mg SL Q5M PRN PRN Reason: ANGINA Ondansetron HCl (Zofran Inj*) 4 mg IV Q6H PRN PRN Reason: NAUSEA Last Admin: 04/19/17 06:08 Dose: 4 mg Oxycodone HCl (Roxycodone Tab*) 5 mg PO Q3H PRN PRN Reason: PAIN Polyethylene Glycol/Electrolytes (Miralax*) 17 gm PO EVERY OTHER DAY [facility] Pramipexole Dihydrochloride (Mirapex Tab*) 1.5 mg PO TID [facility] Last Admin: 04/19/17 09:40 Dose: 1.5 mg Sertraline HCl (Zoloft*) 100 mg PO [facility] Stop: 04/20/17 09:00 Last Admin: 04/19/17 09:39 Dose: 100 mg Sertraline HCl (Zoloft*) 75 mg PO [facility] Vital Signs - 8 hr 04/19/17 04/19/17 04/19/17 06:08 08:00 08:12 Temperature 98.0 F Pulse Rate 65 Respiratory 18 16 Rate Blood Pressure 142/54 (mmHg) O2 Sat by Pulse 94 94 Oximetry 04/19/17 04/19/17 08:44 11:31 Temperature Pulse Rate Respiratory 18 18 Rate Blood Pressure (mmHg) O2 Sat by Pulse Oximetry Oxygen Devices in Use Now: None Appearance: Partly up in bed. She was sleeping when I entered the room but woke up easily. She seemed uncomfortable awake. Eyes: No Scleral Icterus Respiratory: Symmetrical Chest Expansion and Respiratory Effort, Clear to Auscultation, Clear to Percussion Cardiovascular: RRR - 1-2/6 systolic murmur RSB, No Edema Abdominal: NL Sounds; No Tenderness; No Distention, No Hepatosplenomegaly, - Extremities: No Edema, No Clubbing, Cyanosis, - Skin: No Rash or Ulcers, No Nodules or Sclerosis, - Neurological: Alert and Oriented x 3, NL Sensation Result Diagrams: 04/18/17 16:15 04/19/17 05:28 Additional Lab and Data: Lab Results 04/18/17 04/18/17 04/18/17 Range/Units 16:15 16:15 16:15 WBC 8.9 (3.5-10.8) 10^3/ul RBC 4.10 (4.0-5.4) 10^6/ul Hgb 11.3 L (12.0-16.0) g/dl Hct 35 (35-47) % MCV 84 (80-97) fL MCH 28 (27-31) pg MCHC 33 (31-36) g/dl RDW 18 H (10.5-15) % Plt Count 195 (150-450) 10^3/ul MPV 8 (7.4-10.4) um3 Neut % (Auto) 73.8 (38-83) % Lymph % (Auto) 14.2 L (25-47) % [place] % (Auto) 8.2 H (0-7) % Eos % (Auto) 3.1 (0-6) % Baso % (Auto) 0.7 (0-2) % Absolute Neuts (auto) 6.5 (1.5-7.7) 10^3/ul Absolute Lymphs (auto) 1.3 (1.0-4.8) 10^3/ul Absolute Monos (auto) 0.7 (0-0.8) 10^3/ul Absolute Eos (auto) 0.3 (0-0.6) 10^3/ul Absolute Basos (auto) 0.1 (0-0.2) 10^3/ul Absolute Nucleated RBC 0 10^3/ul Nucleated RBC % 0.1 INR (Anticoag Therapy) 0.94 (0.77-1.02) APTT 36.6 H (26.0-36.3) seconds Sodium 136 (133-145) mmol/L Potassium 4.9 (3.5-5.0) mmol/L Chloride 104 (101-111) mmol/L Carbon Dioxide 26 (22-32) mmol/L Anion Gap 6 (2-11) mmol/L BUN 33 H (6-24) mg/dL Creatinine 1.53 H (0.51-0.95) mg/dL Est GFR ( Amer) 41.5 (>60) Est GFR (Non-Af Amer) 32.3 (>60) BUN/Creatinine Ratio 21.6 H (8-20) Glucose 77 (70-100) mg/dL Lactic Acid (0.5-2.0) mmol/L Calcium 9.3 (8.6-10.3) mg/dL Total Bilirubin 0.30 (0.2-1.0) mg/dL AST 28 (13-39) U/L ALT 3 L (7-52) U/L Alkaline Phosphatase 86 (34-104) U/L C-Reactive Protein 4.92 (< 5.00) mg/L Total Protein 6.7 (6.4-8.9) g/dL Albumin 3.7 (3.2-5.2) g/dL Globulin 3.0 (2-4) g/dL Albumin/Globulin Ratio 1.2 (1-3) Lipase < 10 L (11.0-82.0) U/L Urine Color Urine Appearance Urine pH (5-9) Ur Specific [place] (1.010-1.030) Urine Protein (Negative) Urine Ketones (Negative) Urine Blood (Negative) Urine Nitrate (Negative) Urine Bilirubin (Negative) Urine Urobilinogen (Negative) Ur Leukocyte Esterase (Negative) Urine WBC (Auto) (Absent) Urine RBC (Auto) (Absent) Ur Squamous Epith Cells (Absent) Urine Bacteria (Absent) Urine Glucose (Negative) Urine Ascorbic Acid (Negative) 04/18/17 04/18/17 Range/Units 16:15 16:50 WBC (3.5-10.8) 10^3/ul RBC (4.0-5.4) 10^6/ul Hgb (12.0-16.0) g/dl Hct (35-47) % MCV (80-97) fL MCH (27-31) pg MCHC (31-36) g/dl RDW (10.5-15) % Plt Count (150-450) 10^3/ul MPV (7.4-10.4) um3 Neut % (Auto) (38-83) % Lymph % (Auto) (25-47) % [place] % (Auto) (0-7) % Eos % (Auto) (0-6) % Baso % (Auto) (0-2) % Absolute Neuts (auto) (1.5-7.7) 10^3/ul Absolute Lymphs (auto) (1.0-4.8) 10^3/ul Absolute Monos (auto) (0-0.8) 10^3/ul Absolute Eos (auto) (0-0.6) 10^3/ul Absolute Basos (auto) (0-0.2) 10^3/ul Absolute Nucleated RBC 10^3/ul Nucleated RBC % INR (Anticoag Therapy) (0.77-1.02) APTT (26.0-36.3) seconds Sodium (133-145) mmol/L Potassium (3.5-5.0) mmol/L Chloride (101-111) mmol/L Carbon Dioxide (22-32) mmol/L Anion Gap (2-11) mmol/L BUN (6-24) mg/dL Creatinine (0.51-0.95) mg/dL Est GFR ( Amer) (>60) Est GFR (Non-Af Amer) (>60) BUN/Creatinine Ratio (8-20) Glucose (70-100) mg/dL Lactic Acid 1.0 (0.5-2.0) mmol/L Calcium (8.6-10.3) mg/dL Total Bilirubin (0.2-1.0) mg/dL AST (13-39) U/L ALT (7-52) U/L Alkaline Phosphatase (34-104) U/L C-Reactive Protein (< 5.00) mg/L Total Protein (6.4-8.9) g/dL Albumin (3.2-5.2) g/dL Globulin (2-4) g/dL Albumin/Globulin Ratio (1-3) Lipase (11.0-82.0) U/L Urine Color Yellow Urine Appearance Cloudy Urine pH 6.0 (5-9) Ur Specific [place] 1.010 (1.010-1.030) Urine Protein 2+(100 mg/dl) A (Negative) Urine Ketones Negative (Negative) Urine Blood Negative (Negative) Urine Nitrate Negative (Negative) Urine Bilirubin Negative (Negative) Urine Urobilinogen Negative (Negative) Ur Leukocyte Esterase 3+ A (Negative) Urine WBC (Auto) 3+(>20/hpf) A (Absent) Urine RBC (Auto) Absent (Absent) Ur Squamous Epith Cells Present A (Absent) Urine Bacteria Absent (Absent) Urine Glucose Negative (Negative) Urine Ascorbic Acid * A (Negative) Microbiology and Other Data: Microbiology 04/18/17 21:03 Nasal Screen MRSA (PCR)(SHASHA) - Final Nasal Mrsa Detected Assess/Plan/Problems-Billing Assessment: - Patient Problems (1) Abdominal pain Current Visit: Yes Status: Acute Code(s): R10.9 - UNSPECIFIED ABDOMINAL PAIN SNOMED Code(s): 33532623 Comment: Unremarkable CT other than massive ventral hernias. WBC nl, afebrile. ? ischemia. ? mechanical pain from hernias. ? radicular pain. CBC , BMP 3/. Start fentanyl patch 12 mcg/hr, PRN oxycodone. PT ordered. (2) Diabetes Current Visit: Yes Status: Acute Code(s): E11.9 - TYPE 2 DIABETES MELLITUS WITHOUT COMPLICATIONS SNOMED Code(s): 08321830 Comment: Continue Lantus and SS Lispro. (3) Parkinson disease Current Visit: Yes Status: Acute Code(s): G20 - PARKINSON'S DISEASE SNOMED Code(s): 46783655 Comment: Continue carbidopa/Ldopa. (4) Hypothyroid Current Visit: Yes Status: Acute Code(s): E03.9 - HYPOTHYROIDISM, UNSPECIFIED SNOMED Code(s): 58896479 Comment: Continue levothryoxine. TSH 1.64 on 04/19. (5) CKD (chronic kidney disease) stage 3, GFR 30-59 ml/min Current Visit: Yes Status: Acute Code(s): N18.3 - CHRONIC KIDNEY DISEASE, STAGE 3 (MODERATE) SNOMED Code(s): 831327362 Comment: GFR 43.5 04/19/17, about her baseline. (6) Restless leg Current Visit: Yes Status: Acute Comment: Continue pramipexole.
[2017-04-19] MEDS ORDERED: fentaNYL PATCH 12 MCG/HR TRANSDERM SCH (13:00)
[2017-04-19] MEDS: Allopurinol TAB* 300 MG PO SCH (17:44)
[2017-04-19] MEDS: Aspirin Low Dose CHEW TAB* 81 MG PO SCH (17:44)
[2017-04-19] MEDS: Divalproex DR TAB(*) 250 MG PO SCH (20:15)
[2017-04-19] MEDS: Insulin GLARGINE(*) 1 UNITS UNIT SUBCUT SCH (20:16)
[2017-04-19] MEDS: oxyCODONE TAB* 5 MG TAB PO PRN (21:45)
[2017-04-19] MEDS: Latanoprost 0.005%* 2.5 ml BTL BOTH EYES SCH (22:16)
[2017-04-20] MEDS: oxyCODONE TAB* 5 MG TAB PO PRN ×3 (03:55→15:47)
[2017-04-20] MEDS: Heparin VIAL(*) 5000 UNITS/ML VIAL (FIVE THOUSAND) SUBCUT SCH ×3 (05:54→22:50)
[2017-04-20] MEDS: Levothyroxine TAB* 125 MCG TAB PO SCH (05:54)
[2017-04-20 06:17] LABS: ABS Basophils 0.1 10^3/ul (0-0.2); ABS Eosinophils 0.3 10^3/ul (0-0.6); ABS Lymphocytes 1.3 10^3/ul (1.0-4.8); ABS Monocytes 0.5 10^3/ul (0-0.8); ABS Nucleated RBC 0 10^3/ul; Eosinophil % 3.4 % (0-6); Hematocrit 32 % (35-47); Hemoglobin 10.4 g/dl (12.0-16.0); Lymphocyte % 15.6 % (25-47); Mean Corpuscular HGB Conc 32 g/dl (31-36); Mean Corpuscular Hemoglobin 28 pg (27-31); Mean Corpuscular Volume 85 fL (80-97); Mean Platelet Volume 7 um3 (7.4-10.4); Nucleated Red Blood Cells % 0.1; Platelet Count 147 10^3/ul (150-450); Red Blood Count 3.77 10^6/ul (4.0-5.4); Red Cell Distribution Width 18 % (10.5-15); White Blood Count 8.1 10^3/ul (3.5-10.8)
[2017-04-20 06:34] LABS: EGFR Non-African American 41.1 (>60)
[2017-04-20] MEDS: fentaNYL Patch Check Q Shift 1 NOTE SCH ×2 (07:10→19:19)
[2017-04-20] MEDS: Insulin LISPRO* 1 UNITS UNIT SUBCUT SCH ×4 (07:39→22:37)
[2017-04-20] MEDS: Carbidopa/Levodop CR 50/200(*) TAB.CR PO SCH ×3 (08:36→16:52)
[2017-04-20] MEDS: Cholecalciferol TAB* 1000 UNITS PO SCH (08:37)
[2017-04-20] MEDS: Metoprolol Succinate XL TAB* 25 MG PO SCH (08:37)
[2017-04-20] MEDS: Pramipexole TAB* 0.5 MG PO SCH ×3 (08:37→22:49)
[2017-04-20] MEDS: Isosorbide Mononitrate ER TAB* 30 MG PO SCH (08:37)
[2017-04-20] MEDS: Magnesium Oxide TAB* 400 MG PO SCH ×2 (08:38→22:50)
[2017-04-20] MEDS: Sertraline* 50 MG TAB PO SCH (08:40)
[2017-04-20] MEDS ORDERED: Polyethylene Glycol 3350* 17 GM PACKET PO SCH (09:00)
[2017-04-20] MEDS: Sertraline* 100 MG TAB PO SCH (09:03)
[2017-04-20] MEDS ORDERED: cefTRIAXone(*) 1 GM in NS 0.9% 50 ML* 50 ML IVPB ONE (09:09)
[2017-04-20] MEDS: Gabapentin CAP(*) 100 MG PO SCH ×3 (09:51→22:49)
[2017-04-20] MEDS ORDERED: fentaNYL PATCH 25 MCG/HR TRANSDERM SCH (10:00)
--- NOTE | 2017-04-20 12:18 | PN ---
Subjective Date of Service: 04/20/17 Interval History: Abdominal pain improved. Mostly c/o pain L foot radiates up her L leg. Objective Active Medications: Acetaminophen (Tylenol Tab*) 650 mg PO Q4H PRN PRN Reason: PAIN Last Admin: 04/19/17 03:36 Dose: 650 mg Allopurinol (Zyloprim Tab*) 300 mg PO QPM [facility] Last Admin: 04/19/17 17:44 Dose: 300 mg Alprazolam (Xanax Tab*) 0.25 mg PO BEDTIME PRN PRN Reason: ANXIETY Last Admin: 04/18/17 22:31 Dose: 0.25 mg Aspirin (Aspirin Low Dose Tab*) 81 mg PO QPM [facility] Last Admin: 04/19/17 17:44 Dose: 81 mg Carbidopa/Levodopa (Sinemet Cr 50/200(*)) 1 tab.cr PO 0800,1300,1700 [facility] Last Admin: 04/20/17 08:36 Dose: 1 tab.cr Cholecalciferol (Vitamin D Tab*) 2,000 units PO QAM [facility] Last Admin: 04/20/17 08:37 Dose: 2,000 units Dextrose (D50w Syringe 50 Ml*) 12.5 gm IV PUSH .FOR FS < 60 - SS PRN PRN Reason: FS < 60 Divalproex Sodium (Depakote Dr Tab(*)) 250 mg PO DAILY@1999 [facility] Last Admin: 04/19/17 20:15 Dose: 250 mg Fentanyl (Duragesic Patch 25 Mcg/Hr*) 25 mcg TRANSDERM Q72H [facility] Last Admin: 04/20/17 09:54 Dose: 25 mcg Gabapentin (Neurontin Cap(*)) 100 mg PO TID [facility] Last Admin: 04/20/17 09:51 Dose: 100 mg Heparin Sodium (Porcine) (Heparin Vial(*)) 5,000 units SUBCUT Q8HR [facility] Last Admin: 04/20/17 05:54 Dose: 5,000 units Ceftriaxone Sodium 1 gm/ (Sodium Chloride) 50 mls @ 200 mls/hr IVPB ONCE ONE Stop: 04/21/17 08:14 Insulin Glargine (Lantus(*)) 40 units SUBCUT 1999 [facility] Last Admin: 04/19/17 20:16 Dose: 40 units Insulin Human Lispro (Humalog*) 0 units SUBCUT ACHS [facility] PRN Reason: Protocol Last Admin: 04/20/17 12:08 Dose: Not Given Isosorbide Mononitrate (Imdur Er Tab*) [facility] [place] Last Admin: 04/20/17 08:37 Dose: 30 mg Latanoprost (Xalatan 0.005%*) 1 drop BOTH EYES BEDTIME [facility] Last Admin: 04/19/17 22:16 Dose: Not Given Levothyroxine Sodium (Synthroid Tab*) 125 mcg PO DAILY@0600 [facility] Last Admin: 04/20/17 05:54 Dose: 125 mcg Magnesium Hydroxide (Milk Of Magnesia Liq*) 30 ml PO Q8H PRN PRN Reason: CONSTIPATION Magnesium Oxide (Magox 400 Tab*) 400 mg PO BID [facility] Last Admin: 04/20/17 08:38 Dose: 400 mg Metoprolol Succinate (Toprol Xl Tab*) 25 [facility] [place] Last Admin: 04/20/17 08:37 Dose: 25 mg Nitroglycerin (Nitroglycerin Tab 0.4 Mg*) 0.4 mg SL Q5M PRN PRN Reason: ANGINA Ondansetron HCl (Zofran Inj*) 4 mg IV Q6H PRN PRN Reason: NAUSEA Last Admin: 04/19/17 06:08 Dose: 4 mg Oxycodone HCl (Roxycodone Tab*) 5 mg PO Q3H PRN PRN Reason: PAIN Last Admin: 04/20/17 08:38 Dose: 5 mg Pharmacy Profile Note (Fentanyl Patch Check Q Shift) 1 note N/A 0700,1900 [facility] Last Admin: 04/20/17 07:10 Dose: 1 note Polyethylene Glycol/Electrolytes (Miralax*) 17 gm PO EVERY OTHER DAY [facility] Last Admin: 04/20/17 08:38 Dose: 17 gm Pramipexole Dihydrochloride (Mirapex Tab*) 1.5 mg PO TID [facility] Last Admin: 04/20/17 08:37 Dose: 1.5 mg Sertraline HCl (Zoloft*) 75 mg PO QAM [facility] Last Admin: 04/20/17 08:40 Dose: 75 mg Vital Signs - 8 hr 04/20/17 04/20/17 04/20/17 05:59 08:00 08:33 Temperature 98.6 F Pulse Rate 60 Respiratory 18 14 Rate Blood Pressure 126/42 (mmHg) O2 Sat by Pulse 92 92 Oximetry 04/20/17 04/20/17 04/20/17 08:38 08:56 09:51 Temperature 98.6 F Pulse Rate 61 Respiratory 20 20 16 Rate Blood Pressure 126/42 (mmHg) O2 Sat by Pulse 96 Oximetry 04/20/17 09:54 Temperature Pulse Rate Respiratory 16 Rate Blood Pressure (mmHg) O2 Sat by Pulse Oximetry Oxygen Devices in Use Now: None Appearance: Alert, sl up in bed. In good spirits. Looks uncomfortable at times. Abdominal: NL Sounds; No Tenderness; No Distention, No Hepatosplenomegaly, - Extremities: No Edema - No foot/ankle/calf swelling, warmth, or tenderness., No Clubbing, Cyanosis, - Skin: No Rash or Ulcers, No Nodules or Sclerosis, - Neurological: Alert and Oriented x 3, NL Sensation Result Diagrams: 04/20/17 06:09 04/20/17 06:09 Additional Lab and Data: Lab Results 04/18/17 04/18/17 04/18/17 Range/Units 16:15 16:15 16:15 WBC 8.9 (3.5-10.8) 10^3/ul RBC 4.10 (4.0-5.4) 10^6/ul Hgb 11.3 L (12.0-16.0) g/dl Hct 35 (35-47) % MCV 84 (80-97) fL MCH 28 (27-31) pg MCHC 33 (31-36) g/dl RDW 18 H (10.5-15) % Plt Count 195 (150-450) 10^3/ul MPV 8 (7.4-10.4) um3 Neut % (Auto) 73.8 (38-83) % Lymph % (Auto) 14.2 L (25-47) % [place] % (Auto) 8.2 H (0-7) % Eos % (Auto) 3.1 (0-6) % Baso % (Auto) 0.7 (0-2) % Absolute Neuts (auto) 6.5 (1.5-7.7) 10^3/ul Absolute Lymphs (auto) 1.3 (1.0-4.8) 10^3/ul Absolute Monos (auto) 0.7 (0-0.8) 10^3/ul Absolute Eos (auto) 0.3 (0-0.6) 10^3/ul Absolute Basos (auto) 0.1 (0-0.2) 10^3/ul Absolute Nucleated RBC 0 10^3/ul Nucleated RBC % 0.1 INR (Anticoag Therapy) 0.94 (0.77-1.02) APTT 36.6 H (26.0-36.3) seconds Sodium 136 (133-145) mmol/L Potassium 4.9 (3.5-5.0) mmol/L Chloride 104 (101-111) mmol/L Carbon Dioxide 26 (22-32) mmol/L Anion Gap 6 (2-11) mmol/L BUN 33 H (6-24) mg/dL Creatinine 1.53 H (0.51-0.95) mg/dL Est GFR ( Amer) 41.5 (>60) Est GFR (Non-Af Amer) 32.3 (>60) BUN/Creatinine Ratio 21.6 H (8-20) Glucose 77 (70-100) mg/dL Lactic Acid (0.5-2.0) mmol/L Calcium 9.3 (8.6-10.3) mg/dL Total Bilirubin 0.30 (0.2-1.0) mg/dL AST 28 (13-39) U/L ALT 3 L (7-52) U/L Alkaline Phosphatase 86 (34-104) U/L C-Reactive Protein 4.92 (< 5.00) mg/L Total Protein 6.7 (6.4-8.9) g/dL Albumin 3.7 (3.2-5.2) g/dL Globulin 3.0 (2-4) g/dL Albumin/Globulin Ratio 1.2 (1-3) Lipase < 10 L (11.0-82.0) U/L Urine Color Urine Appearance Urine pH (5-9) Ur Specific [place] (1.010-1.030) Urine Protein (Negative) Urine Ketones (Negative) Urine Blood (Negative) Urine Nitrate (Negative) Urine Bilirubin (Negative) Urine Urobilinogen (Negative) Ur Leukocyte Esterase (Negative) Urine WBC (Auto) (Absent) Urine RBC (Auto) (Absent) Ur Squamous Epith Cells (Absent) Urine Bacteria (Absent) Urine Glucose (Negative) Urine Ascorbic Acid (Negative) 04/18/17 04/18/17 Range/Units 16:15 16:50 WBC (3.5-10.8) 10^3/ul RBC (4.0-5.4) 10^6/ul Hgb (12.0-16.0) g/dl Hct (35-47) % MCV (80-97) fL MCH (27-31) pg MCHC (31-36) g/dl RDW (10.5-15) % Plt Count (150-450) 10^3/ul MPV (7.4-10.4) um3 Neut % (Auto) (38-83) % Lymph % (Auto) (25-47) % [place] % (Auto) (0-7) % Eos % (Auto) (0-6) % Baso % (Auto) (0-2) % Absolute Neuts (auto) (1.5-7.7) 10^3/ul Absolute Lymphs (auto) (1.0-4.8) 10^3/ul Absolute Monos (auto) (0-0.8) 10^3/ul Absolute Eos (auto) (0-0.6) 10^3/ul Absolute Basos (auto) (0-0.2) 10^3/ul Absolute Nucleated RBC 10^3/ul Nucleated RBC % INR (Anticoag Therapy) (0.77-1.02) APTT (26.0-36.3) seconds Sodium (133-145) mmol/L Potassium (3.5-5.0) mmol/L Chloride (101-111) mmol/L Carbon Dioxide (22-32) mmol/L Anion Gap (2-11) mmol/L BUN (6-24) mg/dL Creatinine (0.51-0.95) mg/dL Est GFR ( Amer) (>60) Est GFR (Non-Af Amer) (>60) BUN/Creatinine Ratio (8-20) Glucose (70-100) mg/dL Lactic Acid 1.0 (0.5-2.0) mmol/L Calcium (8.6-10.3) mg/dL Total Bilirubin (0.2-1.0) mg/dL AST (13-39) U/L ALT (7-52) U/L Alkaline Phosphatase (34-104) U/L C-Reactive Protein (< 5.00) mg/L Total Protein (6.4-8.9) g/dL Albumin (3.2-5.2) g/dL Globulin (2-4) g/dL Albumin/Globulin Ratio (1-3) Lipase (11.0-82.0) U/L Urine Color Yellow Urine Appearance Cloudy Urine pH 6.0 (5-9) Ur Specific [place] 1.010 (1.010-1.030) Urine Protein 2+(100 mg/dl) A (Negative) Urine Ketones Negative (Negative) Urine Blood Negative (Negative) Urine Nitrate Negative (Negative) Urine Bilirubin Negative (Negative) Urine Urobilinogen Negative (Negative) Ur Leukocyte Esterase 3+ A (Negative) Urine WBC (Auto) 3+(>20/hpf) A (Absent) Urine RBC (Auto) Absent (Absent) Ur Squamous Epith Cells Present A (Absent) Urine Bacteria Absent (Absent) Urine Glucose Negative (Negative) Urine Ascorbic Acid * A (Negative) Microbiology and Other Data: Microbiology 04/18/17 21:03 Nasal Screen MRSA (PCR)(SHASHA) - Final Nasal Mrsa Detected Assess/Plan/Problems-Billing Assessment: - Patient Problems (1) Abdominal pain Current Visit: Yes Status: Acute Code(s): R10.9 - UNSPECIFIED ABDOMINAL PAIN SNOMED Code(s): 74304681 Comment: Unremarkable CT other than massive ventral hernias. WBC nl, afebrile. ? ischemia. ? mechanical pain from hernias. ? radicular pain. CBC , BMP 3/5. Fentanyl patch increased to 25 mcg/hr, PRN oxycodone. PT ordered. (2) Diabetes Current Visit: Yes Status: Acute Code(s): E11.9 - TYPE 2 DIABETES MELLITUS WITHOUT COMPLICATIONS SNOMED Code(s): 61814878 Comment: Continue Lantus and SS Lispro. (3) Parkinson disease Current Visit: Yes Status: Acute Code(s): G20 - PARKINSON'S DISEASE SNOMED Code(s): 28899202 Comment: Continue carbidopa/Ldopa. (4) Hypothyroid Current Visit: Yes Status: Acute Code(s): E03.9 - HYPOTHYROIDISM, UNSPECIFIED SNOMED Code(s): 81908504 Comment: Continue levothryoxine. TSH 1.64 on 04/19. (5) CKD (chronic kidney disease) stage 3, GFR 30-59 ml/min Current Visit: Yes Status: Acute Code(s): N18.3 - CHRONIC KIDNEY DISEASE, STAGE 3 (MODERATE) SNOMED Code(s): 078440047 Comment: GFR 43.5 04/19/17, about her baseline. (6) Restless leg Current Visit: Yes Status: Acute Comment: Continue pramipexole. (7) Peripheral neuropathy Current Visit: Yes Status: Acute Code(s): G62.9 - POLYNEUROPATHY, UNSPECIFIED SNOMED Code(s): 229254533 Comment: Suspect diabetic neuropathy. Gabapentin started 3/5 AM.
[2017-04-20] MEDS: Aspirin Low Dose CHEW TAB* 81 MG PO SCH (16:52)
[2017-04-20] MEDS: Allopurinol TAB* 300 MG PO SCH (16:52)
[2017-04-20] MEDS: Divalproex DR TAB(*) 250 MG PO SCH (22:47)
[2017-04-20] MEDS: Latanoprost 0.005%* 2.5 ml BTL BOTH EYES SCH (22:50)
[2017-04-20] MEDS: Insulin GLARGINE(*) 1 UNITS UNIT SUBCUT SCH (22:51)
[2017-04-21] MEDS: oxyCODONE TAB* 5 MG TAB PO PRN (04:16)
[2017-04-21] MEDS: Levothyroxine TAB* 125 MCG TAB PO SCH (06:23)
[2017-04-21] MEDS: Heparin VIAL(*) 5000 UNITS/ML VIAL (FIVE THOUSAND) SUBCUT SCH (06:24)
[2017-04-21] MEDS: fentaNYL Patch Check Q Shift 1 NOTE SCH (07:40)
[2017-04-21] MEDS ORDERED: cefTRIAXone(*) 1 GM in NS 0.9% 50 ML* 50 ML IVPB ONE (08:00)
[2017-04-21] MEDS: Insulin LISPRO* 1 UNITS UNIT SUBCUT SCH ×2 (08:13→12:53)
[2017-04-21] MEDS: Metoprolol Succinate XL TAB* 25 MG PO SCH (08:41)
[2017-04-21] MEDS: Sertraline* 50 MG TAB PO SCH (08:41)
[2017-04-21] MEDS: Magnesium Oxide TAB* 400 MG PO SCH (08:42)
[2017-04-21] MEDS: Gabapentin CAP(*) 100 MG PO SCH (08:42)
[2017-04-21] MEDS: Pramipexole TAB* 0.5 MG PO SCH (08:43)
[2017-04-21] MEDS: Cholecalciferol TAB* 1000 UNITS PO SCH (08:43)
[2017-04-21] MEDS: Isosorbide Mononitrate ER TAB* 30 MG PO SCH (08:43)
--- NOTE | 2017-04-21 09:47 | PN ---
Progress Note - Progress Note Date of Service: 04/21/17 Note: Time spent on discharge 50 minutes.
[2017-04-21] MEDS: Carbidopa/Levodop CR 50/200(*) TAB.CR PO SCH (10:44)
--- NOTE | 2017-04-21 11:07 | TRS ---
DATE OF ADMISSION: 04/19/2017. DATE OF TRANSFER: 04/21/2017. HISTORY OF PRESENT ILLNESS: This 86-year-old woman presented with abdominal pain. She is a resident of [facility]. The history is detailed in the admission note. The patient had a CT scan of the abdomen. No specific diagnosis could be made with certainty. Both mesenteric adenitis and constipation were considered as possible diagnoses. The patient did have a UTI. She received two doses of Ceftriaxone, one gram IV for the UTI. It was E. coli sensitive to cephalosporins, but resistant to quinolones. She had her second dose on the day of transfer. She was started on Fentanyl for abdominal pain. Shortly after the abdominal pain seemed better and she complained of leg pain. She was started on Gabapentin for possible peripheral neuropathy. On the day of discharge, both the abdominal pain and the leg pain were much improved. She said the pain in her leg had shrunk down to basically just the heel area. She was sitting up in a chair and looked much more alert and comfortable. I had also reduced her Sertraline from 100 to 75 mg daily. I would consider further graduated dose reduction program for her Sertraline. The Fentanyl patch probably could be tapered off gradually in the next week or so. Gabapentin dose can be titrated up or down as clinically indicated. I suggest three more days of Cephalexin 500 mg t.i.d. starting on the morning of 04/22/2017. FINAL DIAGNOSES: 1. E. coli UTI. 2. Abdominal pain resolved. 3. Diabetes. 4. Parkinson's disease. 5. Hypothyroidism. 6. Probable diabetic peripheral neuropathy. 7. Chronic kidney disease. 8. Restless leg syndrome. MEDICATIONS ON TRANSFER: 1. Cephalexin 500 mg t.i.d. for nine doses. 2. Fentanyl patch 25 mcg per hour, change every 72 hours. 3. Gabapentin 100 mg t.i.d. 4. Pramipexole snl-oct-l-half tablets t.i.d. 5. Polyethylene Glycol 17 gm every other day. 6. Magnesium Oxide 400 mg b.i.d. 7. Latanoprost 0.005% one drop both eyes at bedtime. 8. Glargine insulin 60 units daily at 8:00 p.m. 9. Carbidopa Levodopa CR 50/200 one at 0800, 1300, and 1700. 10. Allopurinol 300 mg every evening. 11. Magnesium Hydroxide 30 ml every 8 hours prn. 12. Glucagon 1 mg subcu prn. 13. Acetaminophen 650 mg every 4 hours prn. 14. Tramadol 50 mg every 4 hours prn. 15. Nitroglycerin 0.4 mg sublingual every 5 minutes prn. 16. Isosorbide Mononitrate ER 30 mg daily. 17. Alprazolam 0.25 mg at bedtime prn. 18. Aspirin 81 mg daily. 19. Oxycodone 10 mg every 2 hours prn. 20. Ibuprofen 600 mg every 8 hours prn. 21. Aspart insulin as prescribed. 22. Vitamin D 2,000 units daily. 23. Metoprolol Succinate 25 mg daily. 24. Levothyroxine 125 mcg daily. [id number]/CPS #: [id number] MTDD
[2017-04-21 11:58] VITALS: BP 108/40
[2017-04-22] MEDS ORDERED: Cephalexin CAP* 500 MG PO SCH (09:00)
== END 2017-04-21 13:25 | DRG 690 ==
LOC: ED 15:16 → MED 19:58 → OBSVTOIN 04-19 16:15
PROVIDERS: ADMIT Internal Medicine; ATTEND Internal Medicine
DX: N39.0 Urinary tract infection, site not specified (principal); E11.22 Type 2 diabetes mellitus with diabetic chronic kidney disease; E11.42 Type 2 diabetes mellitus with diabetic polyneuropathy; B96.20 Unspecified Escherichia coli [E. coli] as the cause of diseases classified elsewhere; R10.84 Generalized abdominal pain; N18.3 Chronic kidney disease, stage 3 (moderate); G20 Parkinson's disease; E03.9 Hypothyroidism, unspecified; G25.81 Restless legs syndrome; F32.9 Major depressive disorder, single episode, unspecified; F41.9 Anxiety disorder, unspecified; M10.9 Gout, unspecified; K21.9 Gastro-esophageal reflux disease without esophagitis; Z93.3 Colostomy status; Z79.84 Long term (current) use of oral hypoglycemic drugs; Z79.1 Long term (current) use of non-steroidal anti-inflammatories (NSAID); Z79.82 Long term (current) use of aspirin; Z79.4 Long term (current) use of insulin; Z79.891 Long term (current) use of opiate analgesic; Z79.899 Other long term (current) drug therapy; Z88.5 Allergy status to narcotic agent; Z88.2 Allergy status to sulfonamides; Z88.8 Allergy status to other drugs, medicaments and biological substances; Z91.040 Latex allergy status; Z83.3 Family history of diabetes mellitus; Z80.0 Family history of malignant neoplasm of digestive organs; Z82.49 Family history of ischemic heart disease and other diseases of the circulatory system; K43.2 Incisional hernia without obstruction or gangrene
CPT/HCPCS: 36415; 74177; 80048; 80053; 80164; 81003; 81015; 83036; 83605; 83690; 84443; 84550; 85025; 85610; 85730; 86140; 87077; 87086; 87186; 87641; 99284; A9270-GY; J0696; J1644; J2270; J2405; Q9967

== ENCOUNTER 2017-06-11 15:57 | Emergency (ER) | payer MEDICARE, BC ==
--- NOTE | 2017-06-11 18:42 | ED ---
Neno Ventura Jennifer, scribed for Elder Ponce MD on 06/11/17 at 1711 . GI/ HPI - HPI Summary HPI Summary: The patient is an 86 year old female who is requesting help with colostomy bag placement. Pt states she has used 15 bags in the last 6 days. She has had a colostomy bag for four years. - History of Current Complaint Chief Complaint: EDGeneral Time Seen by Provider: 06/11/17 16:20 Stated Complaint: COL. BAG CHANGE Hx Obtained From: Patient Onset/Duration: Started Days Ago - 6 days, Still Present Timing: Constant Severity: Mild Current Severity: None Pain Intensity: 0 Location of Pain: Epigastric Pain Characteristics: Other: - Redness Associated Signs and Symptoms: Positive: Other: - redness around ostomy Aggravating Factor(s): Nothing Alleviating Factor(s): Nothing - Additional Pertinent History Primary Care Physician: MAGAN - Allergy/Home Medications Allergies/Adverse Reactions: Allergies Allergy/AdvReac Type Severity Reaction Status Date / Time latex Allergy Intermediate Hives/Diff. Verified 06/11/17 16:22 Breathing/I tching Sulfa (Sulfonamide Allergy Intermediate Hives/Rash Verified 06/11/17 16:22 Antibiotics) codeine AdvReac Mild GI Upset Verified 06/11/17 16:22 PMH/Surg Hx/FS Hx/Imm Hx Endocrine/Hematology History: Reports: Hx Diabetes, Hx Thyroid Disease - hypothyroidism Cardiovascular History: Reports: Hx Cardiomegaly, Hx Congestive Heart Failure, Hx Hypertension GI History: Reports: Hx Gastroesophageal Reflux Disease, Hx Hiatal Hernia, Other GI Disorders - has a colostomy, Hx diverticulitis History: Reports: Hx Chronic Renal Failure Denies: Hx Renal Disease Musculoskeletal History: Reports: Hx Arthritis, Other Musculoskeletal History - gout Sensory History: Reports: Hx Cataracts, Hx Contacts or Glasses - reading, has them here, Hx Glaucoma, Hx Hearing Aid - b/l, has them here Opthamlomology History: Reports: Hx Cataracts, Hx Contacts or Glasses - reading , has them here, Hx Glaucoma Neurological History: Reports: Hx Headaches, Hx Migraine, Hx Nerve Disease - restless legs syndrome, Hx Seizures - myoclonic, Other Neuro Impairments/ Disorders - parkinson's Psychiatric History: Reports: Hx Anxiety, Hx Depression - Cancer History Cancer Type, Location and Year: skin Hx Chemotherapy: No - Surgical History Surgery Procedure, Year, and Place: HYSTERECTOMY, APPY, CHOLECYSTECTOMY, HX OF COLOSTOMY. partial bowel obstruction,. eye surgery x3 Hx Anesthesia Reactions: No Infectious Disease History: Yes Infectious Disease History: Denies: Traveled Outside the [place] in Last 30 Days - Family History Known Family History: Negative: Renal Disease - Social History Alcohol Use: None Substance Use Type: Reports: None Smoking Status (MU): Never Smoked Tobacco Review of Systems Negative: Fever Positive: Other - redness around ostmoy All Other Systems Reviewed And Are Negative: Yes Physical Exam - Summary Physical Exam Summary: General: well-appearing, no acute pain distress Skin: warm, color reflects adequate perfusion, dry Head: normal Eyes: EOMI, URSZULA ENT: normal Neck: supple, nontender Respiratory: CTA, breath sounds present Cardiovascular: RRR Abdomen: soft, nontender, ostomy over left lower abdomen, some mild erythema surrounding it but doesn't look like cellulitis Bowel: present Musculoskeletal: normal, strength/ROM intact Neurological: normal, sensory/motor intact, A&O x3 Psychological: affect/mood appropriate Triage Information Reviewed: Yes Vital Signs On Initial Exam: Initial Vitals Temp Pulse Resp BP Pulse Ox 98.0 F 74 16 136/74 98 06/11/17 16:17 06/11/17 16:17 06/11/17 16:17 06/11/17 16:17 06/11/17 16:17 Vital Signs Reviewed: Yes Diagnostics - Vital Signs Vital Signs Temp Pulse Resp BP Pulse Ox 06/11/17 16:17 98.0 F 74 16 136/74 98 - Laboratory Lab Statement: Any lab studies that have been ordered have been reviewed, and results considered in the medical decision making process. GIGU Course/Dx - Course Course Of Treatment: Medications reviewed. Allergies noted. BP noted and advised to follow up with PCP. COLOSTOMY BAG REPLACED IN ED. F/U PMD; RETURN IF WORSE. - Diagnoses Provider Diagnoses: HTN (hypertension), Colostomy care Discharge - Sign-Out/Discharge Documenting (check all that apply): Discharge/Admit/Transfer - Discharge Plan Condition: Stable Disposition: HOME Patient Education Materials: Colostomy Care (ED) Referrals: [facility] [place] [facility] [Outside] Additional Instructions: FOLLOW UP WITH YOUR DOCTOR. RETURN TO THE EMERGENCY DEPARTMENT FOR ANY WORSENING OF YOUR CONDITION OR QUESTIONS OR CONCERNS. YOUR BLOOD PRESSURE WAS ELEVATED TODAY; FOLLOW UP WITH YOUR PRIMARY CARE DOCTOR WITHIN ONE WEEK. - Billing Disposition and Condition Condition: STABLE Disposition: HOME The documentation as recorded by the Neno greer Jennifer accurately reflects the service I personally performed and the decisions made by me, Elder Ponce MD.
[2017-06-11 19:55] VITALS: BP 136/64
== END 2017-06-11 20:00 | disposition home or self-care (01) ==
LOC: ED 15:57
DX: I10 Essential (primary) hypertension (principal); Z43.3 Encounter for attention to colostomy
CPT/HCPCS: 99281

== ENCOUNTER 2017-10-22 18:55 | Inpatient (IN) | payer MEDICARE, BC ==
[2017-10-22] MEDS ORDERED: NS 0.9% 1000 ML* 1,000 ML IV ONE (19:38)
--- NOTE | 2017-10-22 19:39 | ED ---
Dizziness - HPI Summary HPI Summary: This patient is a 86 year old F BIBA to [facility] accompanied by her daughter with a chief complaint of dizziness that began at 1530. She describes it as her head spinning and states 30 minutes after this she began have CP. She went to use the bathroom but couldnt walk due to the dizziness. She states the dizziness has resolved since and that she gets dizzy often but not as severe as today. The patient rates the pain 2/10 in severity. Patient reports nausea, general malaise, and CHRISTOPHER. Pt has blood glucose trouble and did not eat dinner. Given 6 NTG from EMS - History Of Current Complaint Stated Complaint: CHEST PAIN Hx Obtained From: Patient Onset/Duration: Resolved Timing: Intermittent Episode Lasting Severity Initially: Moderate Severity Currently: None Character: Head Spinning Associated Signs And Symptoms: Positive: Chest Pain, Other: - nausea, general malaise, and CHRISTOPHER - Allergies/Home Medications Allergies/Adverse Reactions: Allergies Allergy/AdvReac Type Severity Reaction Status Date / Time latex Allergy Intermediate Hives/Diff. Verified 10/22/17 21:03 Breathing/I tching Sulfa (Sulfonamide Allergy Intermediate Hives/Rash Verified 10/22/17 21:03 Antibiotics) codeine AdvReac Mild GI Upset Verified 10/22/17 21:03 PMH/Surg Hx/FS Hx/Imm Hx Endocrine/Hematology History: Reports: Hx Diabetes, Hx Thyroid Disease - hypothyroidism Cardiovascular History: Reports: Hx Cardiomegaly, Hx Congestive Heart Failure, Hx Hypertension GI History: Reports: Hx Gastroesophageal Reflux Disease, Hx Hiatal Hernia, Other GI Disorders - has a colostomy, Hx diverticulitis History: Reports: Hx Chronic Renal Failure Denies: Hx Renal Disease Musculoskeletal History: Reports: Hx Arthritis, Other Musculoskeletal History - gout Sensory History: Reports: Hx Cataracts, Hx Contacts or Glasses - reading, has them here, Hx Glaucoma, Hx Hearing Aid - b/l, has them here Opthamlomology History: Reports: Hx Cataracts, Hx Contacts or Glasses - reading , has them here, Hx Glaucoma Neurological History: Reports: Hx Headaches, Hx Migraine, Hx Nerve Disease - restless legs syndrome, Hx Seizures - myoclonic, Other Neuro Impairments/ Disorders - parkinson's Psychiatric History: Reports: Hx Anxiety, Hx Depression - Cancer History Cancer Type, Location and Year: skin Hx Chemotherapy: No - Surgical History Surgery Procedure, Year, and Place: HYSTERECTOMY, APPY, CHOLECYSTECTOMY, HX OF COLOSTOMY. partial bowel obstruction,. eye surgery x3 Hx Anesthesia Reactions: No - Family History Known Family History: Negative: Renal Disease - Social History Alcohol Use: None Substance Use Type: Reports: None Smoking Status (MU): Never Smoked Tobacco Review of Systems Positive: Other - general malaise Positive: Chest Pain Positive: Nausea Neurological: Other - dizziness Positive: Headache All Other Systems Reviewed And Are Negative: Yes Physical Exam - Summary Physical Exam Summary: Appearance: Well-appearing, Well-nourished, lying in bed comfortably Skin: Warm, dry, no obvious rash Eyes: sclera anicteric, no conjunctival pallor ENT: mucous membranes moist, pharynx appears normal Neck: Supple, nontender Respiratory: Clear to auscultation, no signs of respiratory distress Cardiovascular: Normal S1, S2. No murmurs. Normal distal pulses in tibial and radial bilaterally. Abdomen: Soft, nontender, normal active bowel sounds present Musculoskeletal: Normal, Strength/ROM Intact Neurological: A&Ox3, awake and alert, mentation is normal, speech is fluent and appropriate Psychiatric: affect is normal, does not appear anxious or depressed NIH:0 GCS: 15 Triage Information Reviewed: Yes Vital Signs Reviewed: Yes Diagnostics - Laboratory Result Diagrams: 10/23/17 05:45 10/23/17 05:45 Lab Statement: Any lab studies that have been ordered have been reviewed, and results considered in the medical decision making process. - Radiology CXR Radiology Interpretation Completed By: ED Physician - No acute disease. Pending official report. - CT CT Brain CT Interpretation Completed By: Radiologist - No acute intracranial pathology. ED physician has reviewed this radiology report. Re-Evaluation - Re-Evaluation First Eval Re-Evaluation Time: 21:22 Change: Unchanged Comment: Pt is unable to internal audit consultant the ED Dizzy Course/Dx - Course Assessment/Plan: This patient is a 86 year old F BIBA to [facility] accompanied by her daughter with a chief complaint of dizziness that began at 1530. She describes it as her head spinning and states 30 minutes after this she began have CP. She went to use the bathroom but couldnt walk due to the dizziness. She states the dizziness has resolved since and that she gets dizzy often but not as severe as today. The patient rates the pain 2/10 in severity. Patient reports nausea, general malaise, and CHRISTOPHER. Pt has blood glucose trouble and did not eat dinner. Given [address] Brain reveals, per radiologist, No acute intracranial pathology. In the ED course the patient was given IV fluids and Compazine and improved somewhat but was unable to stand on her own. Previously she has been ambulatory with a walker. My concern is this could represent cerebellar infarction. I was unable to do head impulse testing due to pt's arthritis with pain on rotating head even gently. We discussed patient care with Dr. Hunter and he has admitted the patient. Patient will be admitted. The patient is agreeable with this plan. - Diagnoses Provider Diagnoses: Vertigo - Provider Notifications Discussed Care Of Patient With: Memo Hunter Time Discussed With Above Provider: 21:29 Instructed by Provider To: Admit As Inpatient Discharge - Sign-Out/Discharge Documenting (check all that apply): Patient Departure - admitted - Discharge Plan Condition: Guarded Disposition: ADMITTED TO [facility] - Billing Disposition and Condition Condition: GUARDED Disposition: Admitted to [facility] - Attestation Statements Document Initiated by Scribe: Yes Documenting Scribe: Collins Wilson Provider For Whom Scribe is Documenting (Include Credential): José Patrick MD Scribe Attestation: ICollins , scribed for José Patrick MD on 10/23/17 at 0859. Scribe Documentation Reviewed: Yes Provider Attestation: The documentation as recorded by the Collins greer accurately reflects the service I personally performed and the decisions made by me, José Patrick MD
--- OUTSIDE RECORDS SUMMARY | 2017-10-22 20:41 | XMS REPORT ---
:1930 External Reference #:[id number] Author Organization [facility] Address [address] [place] [address] Phone [phone] Care Team Providers Name Role Phone Mukesh Brandon M.D. Primary Care Physician Unavailable Payers Type Date Identification Numbers Payment Provider Subscriber Medicare Primary Policy Number: [id number] Medicare - NGS Ayanna Peck PayID: [id number] [address] [place] [address] Medigap Part B Policy Number: [id number] [facility] Ayanna Peck PayID: [id number] [address] [address] [place] [address] Medicaid Policy Number: [id number] Medicaid Ayanna Peck PayID: [id number] [address] [place] [address] Problems Date Description Provider Status Onset: Gout Active Onset: Parkinson's disease Active Onset: Myoclonus Active Onset: Hypercholesterolemia Active Onset: Gastroesophageal reflux disease Active Onset: Hypothyroidism Active Onset: Glaucoma Active Onset: Depressive disorder Active Onset: Type 2 diabetes mellitus Active Onset: Restless legs Active Onset: Chronic kidney disease Active Onset: Chronic obstructive lung disease Active Onset: 08/30/2015 Primary open-angle glaucoma, severe Jack Khan M.D. Active stage Onset: 08/30/2015 Primary open-angle glaucoma, mild Jack Khan M.D. Active stage Onset: 08/30/2015 Presence of intraocular lens Jack Khan M.D. Active Onset: 03/03/2016 Bilateral primary open angle glaucoma Jack Khan M.D. Active Onset: 03/03/2016 Myogenic ptosis Jack Khan M.D. Active Onset: 09/01/2016 Primary open angle glaucoma of right Jack Khan M.D. Active eye Onset: 09/01/2016 Primary open angle glaucoma of left Jack Khan M.D. 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 Active without macular edema, bi Family History Date Family Member(s) Problem(s) Comments Father No Current Problems Mother No Current Problems Social History Type Date Description Comments Marital Status Has been 1 time Occupation Or tech Work Status Retired ETOH Use Rarely consumed wine in the past Smoking Patient has never smoked Recreational Drug Use Denies Drug Use Daily Caffeine Consumes on average 2 cups of hot tea per day Allergies, Adverse Reactions, Alerts Date Description Reaction Status Severity Comments 08/30/2015 Latex active 08/30/2015 Sulfa Antibiotics active 04/10/2017 Codeine active Medications Medication Date Status Form Strength Qnty SIG Indications Ordering Provider Latanoprost 08/28/ Active Solution 0.005% 2.500 1 drop Jack Downing 2016 ml both Arleo, eyes M.DMedhat every night Allopurinol / Active Tablets 300mg Unknown 0000 Divalproex Sodium / Active Tablets ER 250mg Unknown ER 0000 24HR Lantus / Active Solution 100Unit/ML Unknown 0000 Levothyroxine / Active Tablets 125mcg Unknown Sodium 0000 Magnesium Oxide / Active Capsules 400mg Unknown 0000 Novolog / Active Solution 100Unit/ML Unknown 0000 Polyethylene 00/ Active Powder Unknown Glycol 1000 0000 Pramipexole / Active Tablets 1.5mg Unknown Dihydrochloride 0000 Sertraline HCL / Active Tablets 50mg Unknown 0000 Vitamin D3 / Active Chewtabs 1000Unit Unknown 0000 Acetaminophen /00/ Active Tablets 325mg Unknown 0000 Glucagon 00/ Active Kit 1mg Unknown Emergency 0000 Carbidopa-Levodop // Active Tablets ER 50-200mg Unknown a ER 0000 Atorvastatin / Active Tablets 40mg Unknown Calcium 0000 Alprazolam / Active Tablets 0.25mg Unknown 0000 Aspirin Adult Low 00/ Active Chewtabs 81mg Unknown Strength 0000 Metoprolol / Active Tablets ER 25mg Unknown Succinate ER 0000 24HR Macrobid / Active Capsules 100mg Unknown 0000 Ibuprofen 00/ Active Tablets 600mg Unknown 0000 Tramadol HCL 00/ Active Tablets 50mg Unknown 0000 Oxycodone HCL / Active Tablets 10mg Unknown 0000 Nitroglycerin / Active Tablets Sub 0.4mg Unknown 0000 Milk Of Magnesia / Active Suspension 400mg/5ML Unknown 0000 Multiple Vitamins / Active Tablets Unknown 0000 Isosorbide / Active Tablets ER 30mg Unknown Mononitrate ER 0000 24HR Multivitamins / Hx Capsules as Unknown 0000 - needed 2016 Furosemide / Hx Tablets 20mg Unknown 0000 - 2016 Milk Of Magnesia / Hx Suspension 400mg/5ML Unknown 0000 - 2016 Results Description No Information Procedures Date CPT Code Description Status 04/10/2017 08994 Est Patient Comprehensive Exam Completed 09/01/2016 44412 Scanning Computerized Ophthalmic Diagnostic Imag Completed Posterior Seg On 09/01/2016 53215 Est Patient Comprehensive Exam Completed 03/03/2016 48722 Est Patient Intermediate Exam Completed 08/30/2015 23854 Scanning Computerized Ophthalmic Diagnostic Imag Completed Posterior Seg On 08/30/2015 72308 Visual Field Exam Extended Completed 08/30/2015 18256 Determination Of Refractive State Completed 08/30/2015 58477 New Patient Comprehensive Exam Completed
--- NOTE | 2017-10-22 20:48 | RAD ---
EXAM: CT Head Without Intravenous Contrast CLINICAL HISTORY: 86 years old, female; Signs and symptoms; Other: Acute vertigo; Additional info: Acute vertigo, vomiting. TECHNIQUE: Axial computed tomography images of the head/brain without intravenous contrast. All CT scans at this facility use at least one of these dose optimization techniques: automated exposure control; mA and/or kV adjustment per patient size (includes targeted exams where dose is matched to clinical indication); or iterative reconstruction. COMPARISON: No relevant prior studies available. FINDINGS: Brain: Nonspecific hypodensities of the periventricular and deep subcortical white matter, most likely secondary to chronic small vessel ischemic change. No intracranial hemorrhage or extra-axial fluid collection. No evidence of mass effect or midline shift. Amador-white matter differentiation is normal. Ventricles: Prominence of the ventricles and sulci, most likely attributed to parenchymal volume loss. Bones/joints: Unremarkable. No acute fracture. Soft tissues: Unremarkable. Sinuses: Unremarkable as visualized. No acute sinusitis. Mastoid air cells: Unremarkable as visualized. No mastoid effusion. IMPRESSION: No acute intracranial pathology.
[2017-10-22] MEDS ORDERED: PROCHLORPERAZINE INJ 5 MG/ML 2 ML VIAL IV ONE (21:12)
[2017-10-22 21:32] LABS: ABS Basophils 0.1 10^3/ul (0-0.2); ABS Eosinophils 0.3 10^3/ul (0-0.6); ABS Lymphocytes 1.4 10^3/ul (1.0-4.8); ABS Monocytes 0.6 10^3/ul (0-0.8); ABS Nucleated RBC 0 10^3/ul; Hematocrit 35 % (35-47); Hemoglobin 11.5 g/dl (12.0-16.0); Lymphocyte % 17.1 % (25-47); Mean Corpuscular HGB Conc 33 g/dl (31-36); Mean Corpuscular Hemoglobin 28 pg (27-31); Mean Corpuscular Volume 85 fL (80-97); Mean Platelet Volume 8.2 um3 (7.4-10.4); Nucleated Red Blood Cells % 0; Platelet Count 149 10^3/ul (150-450); Red Blood Count 4.12 10^6/ul (4.00-5.40); Red Cell Distribution Width 17 % (10.5-15); White Blood Count 8.4 10^3/ul (3.5-10.8)
[2017-10-22 21:35] LABS: EGFR Non-African American 45.3 (>60)
[2017-10-22] MEDS ORDERED: Meclizine TAB* 12.5 MG PO PRN (23:09)
[2017-10-22] MEDS ORDERED: Dextrose 50% Syringe 50 ML* 25 GM/50 ML SYRINGE IV PUSH PRN (23:09)
[2017-10-22] MEDS ORDERED: Ondansetron INJ* 2 MG/ML VIAL IV PRN (23:09)
[2017-10-22] MEDS ORDERED: ALPRAZolam TAB* 0.25 MG PO PRN (23:25)
[2017-10-22 23:30] LABS: Urine Appearance Clear; Urine Blood Negative (Negative); Urine Color Yellow; Urine Ketones Negative (Negative); Urine Protein 2+(100 mg/dL) (Negative); Urine Red Blood Cell Trace(0-2/hpf) (Absent); Urine Specific Gravity 1.013 (1.010-1.030); Urine Urobilinogen Negative (Negative); Urine White Blood Cell 2+(11-20/hpf) (Absent)
[2017-10-22] MEDS ORDERED: ceFAZolin 1 GM VIAL(*) 1 GM in NS 0.9% 50 ML* 50 ML IVPB SCH (23:45)
[2017-10-23] MEDS: ceFAZolin 1 GM in Dextrose (*) 1 GM/50 ML BAG IVPB SCH ×4 (01:03→23:29)
[2017-10-23] MEDS: Aspirin 81 mg CHEW TAB* 81 MG TAB.CHEW PO SCH ×2 (01:04→08:40)
--- NOTE | 2017-10-23 01:11 | RAD ---
EXAM: US Duplex Right Lower Extremity Veins CLINICAL HISTORY: 86 years old, female; Signs and symptoms; Swelling of limb; Lower extremity, right TECHNIQUE: Real-time duplex ultrasound scan of the right lower extremity veins integrating B-mode two-dimensional vascular structure, Doppler spectral analysis, color flow Doppler imaging and compression. COMPARISON: No relevant prior studies available. FINDINGS: Deep veins: Unremarkable. No DVT in the visualized common femoral, femoral, proximal deep femoral or popliteal veins. The veins demonstrate normal color flow, are normally compressible, with normal phasic flow and/or augmentation response. Superficial veins: Unremarkable. No thrombus in the visualized great saphenous vein. Soft tissues: No acute findings. No popliteal cyst. IMPRESSION: No sonographic evidence of right lower extremity DVT.
[2017-10-23 02:02] LABS: INR 0.91 (0.77-1.02)
--- NOTE | 2017-10-23 02:11 | HP ---
CC: [facility] * HISTORY AND PHYSICAL: DATE OF ADMISSION: 10/22/17 PRIMARY CARE PROVIDER: [facility]. ATTENDING PHYSICIAN WHILE IN THE HOSPITAL: Memo Hunter MD * (report dictated by Serafin Erwin NP). CHIEF COMPLAINT: 1. Dizziness. 2. Chest pain. HISTORY OF PRESENT ILLNESS: Ms. Peck is an 86-year-old female patient. She does carry a history of diabetes, depression, anxiety, gout, CKD, hypothyroid, Parkinson's, restless legs, PVD, and history of GERD. She is coming in to our ER today, she was at [facility], around 1700, she developed an episode of chest pain. She said prior to this she has been feeling dizzy that has really been worse with position change. She states any time she goes to stand up, she has been feeling dizzy like the room has been spinning. She denied lightheadedness. Denied any visual changes, trouble with speech. No facial drooping, no weakness to one side. She said when she was standing, she said that her gait did feel unsteady. She denied having any episodes of falling. She is concerned though because every time she went to sit up, she felt very dizzy and this was not getting any better. She did get nauseous with this as well. She was evaluated in the ER. She is denying dizziness now. She said she had chest pain today as well, described as a hard pain in the center of her chest, this is associated with nausea this afternoon around 1700 that lasted for approximately 30 minutes and it is now gone. She also has been complaining of having some left lower extremity pain and redness. She was concerned because of these symptoms that the chest pain was concerning at the [facility], they sent her to the ER for evaluation. She says she is not having any chest pain now. She does not feel dizzy as long as she is lying flat. She denies having any again shortness of breath or any abdominal discomfort. She does admit to having a large hernia and colostomy, which are chronic in nature for her. No new skin ulcers reported. No recent fevers reported. No vomiting or diarrhea. She came in to the ED because of the dizziness and the fact that she had chest discomfort, we were asked to evaluate for admission. PAST MEDICAL HISTORY: Significant for: 1. Diabetes. 2. Depression. 3. Anxiety. 4. Gout. 5. CKD. 6. Hypothyroid. 7. Parkinson's. 8. Restless legs syndrome. 9. Peripheral vascular disease. 10. GERD. PAST SURGICAL HISTORY: 1. The patient had a colostomy. 2. Hysterectomy. 3. Lumbar spine surgery. 4. Knee and shoulder arthroscopy. 5. Appendectomy. 6. Carpal tunnel surgery. HOME MEDICATIONS: Include: 1. Glucagon Emergency Kit 1 mg IM subcu as needed. 2. Tylenol 650 mg every 4 hours as needed. 3. Mirapex 1.5 mg p.o. t.i.d. 4. Vitamin D 2000 units p.o. q.a.m. 5. Synthroid 125 mcg daily. 6. Latanoprost 1 drop both eyes at bedtime. 7. Imdur 30 mg daily. 8. Lantus 60 units subcu at 2000. 9. Allopurinol 300 mg daily. 10. Magnesium oxide 400 mg p.o. b.i.d. 11. Sinemet 1 tablet at 8, 1300, and 1700. 12. Lipitor 40 mg daily. 13. Tramadol 50 mg every 4 hours as needed. 14. Nitro 0.4 mg every 5 minutes as needed x3. 15. Toprol 25 mg p.o. daily. 16. Aspirin 81 mg a day. 17. Xanax 0.25 mg at bedtime as needed. 18. MiraLAX 17 g p.o. every other day. 19. Ibuprofen 600 mg at bedtime as needed. 20. Depakote 250 mg daily. 21. Fentanyl 12 mcg transdermally every 72 hours. 22. NovoLog sliding scale. 23. Zoloft 100 mg daily. ALLERGIES TO MEDICATIONS: Include SULFA, CODEINE, and LATEX. FAMILY HISTORY: Mother had a history of diabetes and stomach cancer. Father had a history of an [place]. SOCIAL HISTORY: She does not smoke. She does not drink. She is recently . Her surrogate decision maker is her friend, Maria Del Carmen Sheldon. She does reside at [facility]. REVIEW OF SYSTEMS: There is no documented fever. She is denying having any significant weight change. She denies having any ear discharge. There was no rhinorrhea. There is no sore throat. There is no thyroid enlargement. She denied having any abdominal pain. There was no nausea, no vomiting. Again, there was chest pain from HPI. No dysuria, no frequency. No seizure. There was no loss of conscious. She did admit to dizziness. Review of 14 systems completed, all others negative. PHYSICAL EXAMINATION GENERAL: At this time, Ms. Peck is an 86-year-old female patient. She is sitting in the ED stretcher. She does not appear to be in any acute distress. VITAL SIGNS: Blood pressure 159/53, pulse 61, respirations 18, O2 sat 94%, temperature 98.1. HEENT: Head, atraumatic, normocephalic. Eyes: EOMs intact. Sclerae are anicteric and not pale. Throat: Oral mucosa appears to be moist. No pharyngeal erythema. NECK: Supple. LUNGS: Clear to auscultation bilaterally. No wheezes, rales, or rhonchi. HEART: Sounds S1, S2. She had a regular rate and rhythm. No murmurs, rubs, or gallops. ABDOMEN: Soft, flat, nontender. She has a colostomy in the left lower quadrant. In addition to this, she also has a large ventral hernia. Bowel sounds present. She is nontender. EXTREMITIES: Pulses are 2+ throughout. The right lower extremity was painful to touch and red and erythematic. The left lower extremity was smaller in size than the right. The right was larger. She has +3 pitting edema there, 2 pitting edema in the right lower extremity. She had 5/5 strength. NEUROLOGICAL: She is awake. She is alert. She had no central nystagmus noted on my exam. I could not elicit nystagmus. Udiueq-bi-hhyw and qgcx-ed-bgiw intact bilaterally. The healthcare consultant were equal. Her tongue is midline. She had no gross obvious focal deficits. SKIN: Intact. She does have erythema noted to the right lower extremity. No open areas were noted. LABORATORY DATA: WBC of 8.4, RBC of 4.12, hemoglobin of 11.5, hematocrit 35, platelet count of 149. ESR pending. Her sodium was 136, potassium 4.3, chloride 104, bicarb 25, BUN 31, creatinine 1.14, glucose 257, calcium 9.1. Total bili 0.4, AST 24, ALT 4, alk phos 101. Troponin 0.02, repeat was 0.01. Albumin 3.9. Urine showed 2+ protein, trace leukocyte esterase, 2+ wbc. She did have a brain CT obtained today, which revealed no acute intracranial pathology. She had an EKG obtained today as well, which did show a sinus bradycardia with a rate of 52. She had no ST elevation or T wave inversions. When compared to the previous EKG, the rate is slower now. The right bundle branch block is still present. She had a chest x-ray obtained today, which when I reviewed it, I did not appreciate any acute infiltrate. She is rotated in the film and no effusions were noted. Old medical records were reviewed. ASSESSMENT AND PLAN: Ms. Peck is an 86-year-old female patient coming in to ED today with complaints of dizziness, chest pain, and lower extremity pain. We were asked to evaluate for admission. She will be admitted under observation status for: 1. Right lower extremity pain. Again, I am concerned for a possible DVT here or cellulitis. I am going to get an ultrasound. I have placed the patient empirically on Ancef. To me it feels like cellulitis, it is hot, it is warm, again but this could be clot, so I will check ultrasound. We will continue to monitor. Start antibiotics and continued falls could be contributing to her weakness. 2. Dizziness. On my exam, I do not see any central nystagmus. It is worse with positional changing. It is described as room spinning. Her ears have been bothering her. Recently she has been put on Debrox. I examined her ears and she did not appreciate any erythema or signs of infection, but she is feeling congested, so my question is if this is vertigo vs labyrinthitis. My plan is that I am just going to try meclizine for the time being. I would avoid benzos in the patient who is on the narcotics that she is on. I am going to get an MRI to see if she does have vascular risk factors. If the MRI is positive, then I will get Neurology input. She is already on statin and aspirin. I am not going to escalate this at this point and I will get neuro checks and place her on telemetry. 3. Chest pain. I had a clear conversation with the patient. She says that she would not want a stress test because it is given the stress test was positive, she would not want to pursue cardiac catheterization. We will continue with maximum medical management. She is chest pain free now. She has had 2 negative troponins. We will get the 3rd troponin. We will place her on telemetry. She will continue her aspirin, statin, beta-josh, and nitrate therapy. 4. Diabetes. Continue on her lispro sliding scale and Lantus. 5. Depression and anxiety. Continue with supportive care. 6. Gout. Continue her allopurinol. 7. Chronic kidney disease. Creatinine is stable. 8. Hypothyroidism. Continue her Synthroid. 9. Parkinson's. Continue meds as prescribed. 10. Restless legs. Continue meds as prescribed. 11. Peripheral vascular disease. Continue her aspirin, statin therapy. 12. Gastroesophageal reflux disease. Continue PPI therapy. 13. DVT prophylaxis: She is high risk. I have placed her on heparin subcu 14. Code status: She is a DNR. There is a MOLST form in the chart. 15. Fluids, electrolytes and nutrition. She can have a consistent carb diet. TIME SPENT: Time spent on admission was 60 minutes, greater than half the time was spent [id number] with the patient obtaining my history and physical, other half time was spent going over the plan of care with the patient and implementing the plan of care. I did discuss the plan of care with my attending, Dr. Hunter, he is in agreement. SERAFIN ERWIN, MONO [id number]/CPS #: [id number] LINDA
[2017-10-23 02:17] LABS: EGFR Non-African American 46.7 (>60)
[2017-10-23] MEDS: Levothyroxine TAB* 125 MCG TAB PO SCH (05:19)
[2017-10-23 05:47] LABS: ABS Basophils 0.1 10^3/ul (0-0.2); ABS Eosinophils 0.3 10^3/ul (0-0.6); ABS Lymphocytes 1.1 10^3/ul (1.0-4.8); ABS Monocytes 0.6 10^3/ul (0-0.8); ABS Neutrophils 6.1 10^3/ul (1.5-7.7); ABS Nucleated RBC 0 10^3/ul; Eosinophil % 4.2 % (0-6); Hematocrit 36 % (35-47); Hemoglobin 11.6 g/dl (12.0-16.0); Lymphocyte % 13.7 % (25-47); Mean Corpuscular HGB Conc 33 g/dl (31-36); Mean Corpuscular Hemoglobin 28 pg (27-31); Mean Corpuscular Volume 86 fL (80-97); Mean Platelet Volume 7.8 um3 (7.4-10.4); Nucleated Red Blood Cells % 0; Platelet Count 131 10^3/ul (150-450); Red Blood Count 4.13 10^6/ul (4.00-5.40); Red Cell Distribution Width 16 % (10.5-15); White Blood Count 8.2 10^3/ul (3.5-10.8)
[2017-10-23] MEDS ORDERED: Heparin VIAL(*) 5000 UNITS/ML VIAL (FIVE THOUSAND) SUBCUT SCH ×2 (06:00→09:00)
[2017-10-23 06:01] LABS: EGFR Non-African American 48.7 (>60)
--- NOTE | 2017-10-23 07:58 | RAD ---
Indication: Chest pain. Single frontal view of the chest performed at 2010 hours was reviewed. Comparison is made with previous exam dated March 17, 2016. No mediastinal shift is noted. Hyperinflated lung walsh are noted. There is no pleural fluid, pneumonia or pneumothorax. IMPRESSION: NO ACTIVE CARDIOPULMONARY DISEASE IS NOTED. HYPERINFLATED LUNG WALSH ARE NOTED.
[2017-10-23] MEDS: Insulin LISPRO* 1 UNITS UNIT SUBCUT SCH ×3 (08:37→17:10)
[2017-10-23] MEDS: Sertraline* 100 MG TAB PO SCH (08:40)
[2017-10-23] MEDS: Magnesium Oxide TAB* 400 MG PO SCH ×2 (08:40→20:34)
[2017-10-23] MEDS: Isosorbide Mononitrate ER TAB* 30 MG PO SCH (08:40)
[2017-10-23] MEDS: Pramipexole TAB* 0.5 MG PO SCH ×3 (08:40→20:34)
[2017-10-23] MEDS: Metoprolol Succinate XL TAB* 25 MG PO SCH (08:44)
[2017-10-23] MEDS ORDERED: Metoprolol Succinate XL TAB* 25 MG PO SCH (09:00)
[2017-10-23] MEDS: Divalproex ER TAB(*) 250 MG PO SCH (09:11)
[2017-10-23] MEDS: Carbidopa/Levodop CR 50/200(*) TAB.CR PO SCH ×3 (09:12→16:56)
[2017-10-23] MEDS: fentaNYL PATCH 12 MCG/HR TRANSDERM SCH (09:24)
[2017-10-23] MEDS: fentaNYL Patch Check Q Shift 1 NOTE FOLLOW UP SCH ×2 (09:26→19:22)
--- NOTE | 2017-10-23 11:38 | RAD ---
HISTORY: dizziness COMPARISONS: CT of the brain dated October 22, 2017 TECHNIQUE: The following sequences were obtained of the head: Sagittal T1-weighted images, axial T2-weighted images, axial FLAIR images, axial susceptibility weighted images, axial T1-weighted images. Additionally, axial diffusion-weighted images were obtained with calculated apparent diffusion coefficients.. FINDINGS: HEMORRHAGE/INFARCT: There is no hemorrhage or acute infarct. MASSES/SHIFT: There is no mass or shift. EXTRA-AXIAL SPACES/MENINGES: There are no extra-axial fluid collections. SULCI AND VENTRICLES: The sulci and ventricles are normal in size and position for the patient's stated age. CEREBRUM: There is a mild degree of periventricular and subcortical fluid dense foci most consistent with microvascular disease in a patient of this age. Otherwise the ibarra-white matter differentiation is adequately maintained. There is no mass, mass effect or midline shift. BRAINSTEM: There are no focal parenchymal abnormalities. CEREBELLUM: There are no focal parenchymal abnormalities. The cerebellar tonsils are normal in size and position. SELLA: The sella is normal. PINEAL: The pineal region is clear. CP ANGLE/TEMPORAL BONES: The labyrinthine structures are grossly normal. VESSELS: Normal flow-voids are noted within the visualized vertebral vasculature. DIFFUSION ABNORMALITIES: There are no diffusion abnormalities. PARANASAL SINUSES/MASTOIDS: The paranasal sinuses are clear. ORBITS: The orbits are unremarkable. BONES AND SOFT TISSUE: At the right parotid gland there is a 1.1 cm subcutaneous fluid intense focus. This same nodule is partially intense on T1-weighted images perhaps indicating a proteinaceous or fat component. IMPRESSION: 1. NO MR EVIDENCE OF ACUTE FOCAL OR TERRITORIAL INFARCTION. 2. 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 3. INCIDENTALLY NOTED IS A SUBCUTANEOUS PARTIALLY CYSTIC NODULE BENEATH THE RIGHT PAROTID GLAND MEASURING 1.1 CM IN GREATEST DIMENSION. PLEASE CORRELATE TO PHYSICAL EXAMINATION.
[2017-10-23] MEDS: traMADol TAB* 50 MG PO PRN (11:51)
[2017-10-23] MEDS ORDERED: hydrALAZINE IV* 20 MG/ML VIAL IV SLOW PU PRN ×2 (13:56→17:56)
[2017-10-23] MEDS: amLODIPine TAB* 5 MG PO SCH (14:13)
[2017-10-23] MEDS ORDERED: hydrALAZINE IV* 20 MG/ML VIAL ONE (17:52)
[2017-10-23] MEDS ORDERED: Nitroglycerin TAB 0.4 MG* 0.4 MG TAB SL PRN (18:01)
[2017-10-23] MEDS ORDERED: Morphine INJ* 2 MG/ML 1 ML SYRINGE (TWO MG - NEW SYRINGE VERSION) IV PRN (18:02)
[2017-10-23] MEDS ORDERED: Nitroglycerin TAB 0.4 MG* 0.4 MG TAB ONE (18:03)
--- NOTE | 2017-10-23 18:05 | PN ---
Hospitalist Progress Note Date of Service: 10/23/17 Pt seen and re-evaluated for uncontrolled BP. Ordered 10 mg IV of Hydralazine, placed pt on Nitro patch with prn SL NTG, PRN Morphine, added PO Lisinopril. EKG shows no EKG changes. CXR and troponins ordered and pending. Will s/o to night team to F/U.
[2017-10-23] MEDS ORDERED: Nitroglycerin 0.2 MG/HR PATCH* (5 MG) ONE (18:07)
[2017-10-23] MEDS: Nitroglycerin 0.2 MG/HR PATCH* (5 MG) TRANSDERM SCH (18:08)
[2017-10-23] MEDS: Atorvastatin* 40 MG TAB PO SCH (18:15)
[2017-10-23] MEDS: Lisinopril TAB* 10 MG PO SCH (18:15)
[2017-10-23] MEDS: Allopurinol TAB* 300 MG PO SCH (18:16)
[2017-10-23] MEDS ORDERED: Insulin GLARGINE(*) 1 UNITS UNIT SUBCUT SCH (20:00)
[2017-10-23] MEDS ORDERED: Dextrose 50% Syringe 50 ML* 25 GM/50 ML SYRINGE IV PUSH PRN (20:31)
[2017-10-23] MEDS: Latanoprost 0.005%* 2.5 ml BTL BOTH EYES SCH (20:42)
--- NOTE | 2017-10-23 20:43 | PN ---
Subjective Date of Service: 10/23/17 Interval History: Pt seen and examined early in AM and revisited late PM due to HTN urgency. Meds and labs reviewed. Please see note prior and discussion below. CC: Chest pain radiating to left arm ROS: Denied CHRISTOPHER/dizziness, F/C, N/V, , SOB, increased cough, sputum production, abd pain, diarrhea, constipation, dysuria, myalgias, arthralgias, throat pain, and new skin lesions. The rest of the 14 point ROS are unremarkable. PHYSICAL EXAM: GEN APPEARANCE: Awake, not in acute distress HEENT: NC/AT, PERRLA, moist oral mucosa, (-) throat erythema NECK: Soft, supple, (-) cervical LAD, (-)JVD HEART: S1S2 WNL, RRR, No MRG CHEST: CTA, BL, GAE, No W/R/R ABD: Soft, ND/NT, NABS 4x Q EXT: No C/C/BLLE edema, 3+ right and 2+left, with surgical scars BL knee area SKIN: Warm to touch PSYCH: No active psychosis, hallucinations, depression, SI/HI Objective Active Medications: Allopurinol (Zyloprim Tab*) 300 mg PO QPM [facility] Last Admin: 10/23/17 18:16 Dose: 300 mg Alprazolam (Xanax Tab*) 0.25 mg PO BEDTIME PRN PRN Reason: ANXIETY Amlodipine Besylate (Norvasc Tab*) 10 mg PO DAILY [facility] Last Admin: 10/23/17 14:13 Dose: 10 mg Aspirin (Aspirin 81 Mg Chew Tab*) 81 mg PO DAILY [facility] Last Admin: 10/23/17 08:40 Dose: 81 mg Atorvastatin Calcium (Lipitor*) 40 mg PO QPM [facility] Last Admin: 10/23/17 18:15 Dose: 40 mg Carbidopa/Levodopa (Sinemet Cr 50/200(*)) 1 tab.cr PO TID@0800,1300,1700 [facility] Last Admin: 10/23/17 16:56 Dose: 1 tab.cr Dextrose (D50w Syringe 50 Ml*) 12.5 gm IV PUSH .FOR FS < 60 - SS PRN PRN Reason: FS < 60 Dextrose (D50w Syringe 50 Ml*) 12.5 gm IV PUSH .FOR FS < 60 - SS PRN PRN Reason: FS < 60 Divalproex Sodium (Depakote Er Tab(*)) 250 mg PO DAILY [facility] Last Admin: 10/23/17 09:11 Dose: 250 mg Fentanyl (Duragesic Patch 12 Mcg/Hr *) 12 mcg TRANSDERM Q72HR [facility] Last Admin: 10/23/17 09:24 Dose: 12 mcg Heparin Sodium (Porcine) (Heparin Vial(*)) 5,000 units SUBCUT Q12HR [facility] Hydralazine HCl (Apresoline Iv*) 10 mg IV SLOW PU Q6H PRN PRN Reason: BLOOD PRESSURE Cefazolin Sodium/Dextrose (Kefzol 1 Gm In Dextrose Duplex (*)) 1 gm in 50 mls @ 200 mls/hr IVPB Q8H [facility] Last Admin: 10/23/17 16:56 Dose: 200 mls/hr Insulin Glargine (Lantus(*)) 66 units SUBCUT DAILY@2000 [facility] Insulin Human Lispro (Humalog*) 0 units SUBCUT AC [facility]; Protocol Last Admin: 10/23/17 17:10 Dose: 12 units Insulin Human Lispro (Humalog*) 8 units SUBCUT AC [facility] Isosorbide Mononitrate (Imdur Er Tab*) 30 mg PO QAM [facility] Last Admin: 10/23/17 08:40 Dose: 30 mg Latanoprost (Xalatan 0.005%*) 1 drop BOTH EYES BEDTIME [facility] Levothyroxine Sodium (Synthroid Tab*) 125 mcg PO QAM@0600 [facility] Last Admin: 10/23/17 05:19 Dose: 125 mcg Lisinopril (Prinivil Tab*) 20 mg PO DAILY [facility] Last Admin: 10/23/17 18:15 Dose: 20 mg Magnesium Oxide (Magox 400 Tab*) 400 mg PO BID [facility] Last Admin: 10/23/17 20:34 Dose: 400 mg Meclizine HCl (Antivert Tab*) 25 mg PO Q8HR [facility] Metoprolol Succinate (Toprol Xl Tab*) 12.5 mg PO QAM [facility] Last Admin: 10/23/17 08:44 Dose: Not Given Morphine Sulfate (Morphine Inj ((Syringe))*) 1 mg IV Q6H PRN PRN Reason: CHEST PAIN Nitroglycerin (Nitroglycerin Tab 0.4 Mg*) 0.4 mg SL Q5M PRN PRN Reason: ANGINA Last Admin: 10/23/17 18:06 Dose: 0.4 mg Nitroglycerin (Nitroglycerin 5 Mg Patch*) 1 patch TRANSDERM DAILY [facility] Last Admin: 10/23/17 18:08 Dose: 1 patch Ondansetron HCl (Zofran Inj*) 4 mg IV Q6H PRN PRN Reason: NAUSEA Pharmacy Profile Note (Fentanyl Patch Check Q Shift) 1 note FOLLOW UP 0700, 1900 [facility] Last Admin: 10/23/17 19:22 Dose: 1 note Polyethylene Glycol/Electrolytes (Miralax*) 17 gm PO EVERY OTHER DAY [facility] Pramipexole Dihydrochloride (Mirapex Tab*) 1.5 mg PO TID [facility] Last Admin: 10/23/17 20:34 Dose: 1.5 mg Sertraline HCl (Zoloft*) 100 mg PO DAILY [facility] Last Admin: 10/23/17 08:40 Dose: 100 mg Tramadol HCl (Ultram*) 50 mg PO Q6H PRN PRN Reason: PAIN Last Admin: 10/23/17 11:51 Dose: 50 mg Vital Signs - 8 hr 10/23/17 10/23/17 10/23/17 13:52 15:22 17:00 Temperature 98.0 F Pulse Rate 63 Respiratory 18 16 Rate Blood Pressure 224/106 (mmHg) O2 Sat by Pulse 96 Oximetry 10/23/17 10/23/17 10/23/17 17:20 18:14 18:24 Temperature Pulse Rate 78 85 Respiratory Rate Blood Pressure 240/100 166/63 176/85 (mmHg) O2 Sat by Pulse 94 94 Oximetry 10/23/17 10/23/17 10/23/17 18:34 18:45 19:00 Temperature Pulse Rate 78 71 66 Respiratory Rate Blood Pressure 169/61 181/61 (mmHg) O2 Sat by Pulse 94 94 92 Oximetry 10/23/17 19:04 Temperature Pulse Rate Respiratory Rate Blood Pressure 164/58 (mmHg) O2 Sat by Pulse Oximetry Oxygen Devices in Use Now: None Result Diagrams: 10/23/17 05:45 10/23/17 05:45 Assess/Plan/Problems-Billing Assessment: - Patient Problems (1) Hypertensive urgency Current Visit: Yes Status: Acute Code(s): I16.0 - HYPERTENSIVE URGENCY SNOMED Code(s): 043840669 Comment: -Revisited late PM -Troponins and CXR ordered -EKG shows no change from previous -Increased PRN Hydralazine -Placed on Lisinopril in addition of Norvasc added earlier in AM -Placed on Nitropatch as well as PRN NTG SL -Placed on PRN Morphine -Given bradycardia earlier in AM Metoprolol dose decreased given complaints of dizziness -Orthostatic VS early in AM does not suggest orthostasis -Declines stress test given she mentions that even if it was positive, she would not like to have cardiac cath and will defer (2) Chest pain Current Visit: Yes Status: Acute Code(s): R07.9 - CHEST PAIN, UNSPECIFIED SNOMED Code(s): 41995753 Comment: -Please see above discussion (3) Cellulitis of right lower extremity Current Visit: Yes Status: Acute Code(s): L03.115 - CELLULITIS OF RIGHT LOWER LIMB SNOMED Code(s): 929936511 Comment: -Continue ancef -Will continue to follow cultures (4) Vertigo Current Visit: Yes Status: Acute Code(s): R42 - DIZZINESS AND GIDDINESS SNOMED Code(s): 646463587 Comment: -MRI of brain does not suggest CVA and likely due to BPPV given exacerbated by position change -Will change PRN Meclizine to scheduled doses q8H (5) Diabetes 1.5, managed as type 2 Current Visit: Yes Status: Acute Code(s): E10.9 - TYPE 1 DIABETES MELLITUS WITHOUT COMPLICATIONS SNOMED Code(s): 879310243 Comment: -Uncontrolled -Adjusted insulin needs as ordered (6) DVT prophylaxis Current Visit: Yes Status: Acute Code(s): KWP3572 - SNOMED Code(s): 824574539 Comment: -Decreased heparin SQ to q12h Status and Disposition: -For PT eval
[2017-10-23] MEDS: Meclizine TAB* 12.5 MG PO SCH (21:43)
[2017-10-23] MEDS: Heparin VIAL(*) 5000 UNITS/ML VIAL (FIVE THOUSAND) SUBCUT SCH (21:43)
[2017-10-24] MEDS: Levothyroxine TAB* 125 MCG TAB PO SCH (05:07)
[2017-10-24] MEDS: Meclizine TAB* 12.5 MG PO SCH ×3 (05:07→21:37)
[2017-10-24 05:47] LABS: ABS Basophils 0.1 10^3/ul (0-0.2); ABS Eosinophils 0.3 10^3/ul (0-0.6); ABS Lymphocytes 1.1 10^3/ul (1.0-4.8); ABS Monocytes 0.6 10^3/ul (0-0.8); ABS Neutrophils 7.8 10^3/ul (1.5-7.7); ABS Nucleated RBC 0 10^3/ul; Eosinophil % 2.8 % (0-6); Hematocrit 36 % (35-47); Hemoglobin 11.7 g/dl (12.0-16.0); Lymphocyte % 10.9 % (25-47); Mean Corpuscular HGB Conc 33 g/dl (31-36); Mean Corpuscular Hemoglobin 28 pg (27-31); Mean Corpuscular Volume 85 fL (80-97); Mean Platelet Volume 8.1 um3 (7.4-10.4); Nucleated Red Blood Cells % 0; Platelet Count 163 10^3/ul (150-450); Red Blood Count 4.18 10^6/ul (4.00-5.40); Red Cell Distribution Width 16 % (10.5-15); White Blood Count 9.8 10^3/ul (3.5-10.8)
[2017-10-24 06:06] LABS: EGFR Non-African American 45.8 (>60)
[2017-10-24] MEDS: fentaNYL Patch Check Q Shift 1 NOTE FOLLOW UP SCH ×2 (07:21→19:20)
--- NOTE | 2017-10-24 07:55 | RAD ---
Indication: Chest pain. 2 views of the chest are reviewed. Cardiomegaly is noted. Tortuous descending aorta is noted. Lung lombardo appear clear. Chronic pleural changes are noted. Overall no changes noted since October 22, 2017 IMPRESSION: Chronic pleural changes are noted. Cardiomegaly is noted. R1
[2017-10-24] MEDS: Heparin VIAL(*) 5000 UNITS/ML VIAL (FIVE THOUSAND) SUBCUT SCH ×2 (08:13→20:32)
[2017-10-24] MEDS: Nitroglycerin 0.2 MG/HR PATCH* (5 MG) TRANSDERM SCH (08:13)
[2017-10-24] MEDS: Polyethylene Glycol 3350* 17 GM PACKET PO SCH ×2 (08:13→13:33)
[2017-10-24] MEDS: Aspirin 81 mg CHEW TAB* 81 MG TAB.CHEW PO SCH (08:14)
[2017-10-24] MEDS: Isosorbide Mononitrate ER TAB* 30 MG PO SCH (08:14)
[2017-10-24] MEDS: Divalproex ER TAB(*) 250 MG PO SCH (08:14)
[2017-10-24] MEDS: Insulin LISPRO* 1 UNITS UNIT SUBCUT SCH ×6 (08:14→17:56)
[2017-10-24] MEDS: Sertraline* 100 MG TAB PO SCH (08:14)
[2017-10-24] MEDS: Magnesium Oxide TAB* 400 MG PO SCH ×2 (08:14→20:33)
[2017-10-24] MEDS: Pramipexole TAB* 0.5 MG PO SCH ×3 (08:14→20:33)
[2017-10-24] MEDS: Lisinopril TAB* 10 MG PO SCH (08:14)
[2017-10-24] MEDS: amLODIPine TAB* 5 MG PO SCH (08:14)
[2017-10-24] MEDS: Carbidopa/Levodop CR 50/200(*) TAB.CR PO SCH ×3 (08:28→17:07)
[2017-10-24] MEDS: Metoprolol Succinate XL TAB* 25 MG PO SCH (08:54)
[2017-10-24] MEDS: ceFAZolin 1 GM in Dextrose (*) 1 GM/50 ML BAG IVPB SCH ×3 (09:01→23:31)
[2017-10-24] MEDS ORDERED: Magnesium Sulf 4 GM/100 ML IV* 4,000 MG/100 ML BAG IVPB ONE (11:30)
[2017-10-24] MEDS ORDERED: Senna/Docusate (NF) TAB PO SCH (13:00)
[2017-10-24] MEDS: traMADol TAB* 50 MG PO PRN (13:34)
[2017-10-24] MEDS: Docusate CAP* 100 MG PO SCH (13:34)
[2017-10-24] MEDS: Senna TAB PO SCH (13:34)
--- NOTE | 2017-10-24 17:03 | RAD ---
Indication: Bilateral lower extremity pain. 2 views of the left lower extremity demonstrates no fracture. No other bone or joint abnormalities identified. Patient is status post left knee replacement. IMPRESSION: No fracture of the left lower extremity is noted.
--- NOTE | 2017-10-24 17:04 | RAD ---
Indication: Right lower extremity pain. 2 views of the right lower extremity demonstrates right knee replacement. Soft tissue swelling surrounding the ankle is noted. No fracture is noted. IMPRESSION: No fracture of the right lower extremity is noted.
[2017-10-24] MEDS: Allopurinol TAB* 300 MG PO SCH (17:07)
[2017-10-24] MEDS: Atorvastatin* 40 MG TAB PO SCH (17:08)
--- NOTE | 2017-10-24 17:37 | PN ---
Subjective Date of Service: 10/24/17 Interval History: Pt seen and examined. Meds and labs reviewed. CC: BLLE pain, 08/25 ROS: Denied CHRISTOPHER/dizziness, F/C, N/V, CP, SOB, increased cough, sputum production , abd pain, diarrhea, constipation, dysuria, myalgias, arthralgias, throat pain , and new skin lesions. The rest of the 14 point ROS are unremarkable. PHYSICAL EXAM: GEN APPEARANCE: Awake, not in acute distress HEENT: NC/AT, PERRLA, moist oral mucosa, (-) throat erythema NECK: Soft, supple, (-) cervical LAD, (-)JVD HEART: S1S2 WNL, RRR, No MRG CHEST: CTA, BL, GAE, No W/R/R ABD: Soft, ND/NT, NABS 4x Q EXT: No C/C/BLLE edema, 3+ right and 2+left, with surgical scars BL knee area SKIN: Warm to touch PSYCH: No active psychosis, hallucinations, depression, SI/HI Objective Active Medications: Allopurinol (Zyloprim Tab*) 300 mg PO QPM [facility] Last Admin: 10/24/17 17:07 Dose: 300 mg Alprazolam (Xanax Tab*) 0.25 mg PO BEDTIME PRN PRN Reason: ANXIETY Amlodipine Besylate (Norvasc Tab*) 10 mg PO DAILY [facility] Last Admin: 10/24/17 08:14 Dose: 10 mg Aspirin (Aspirin 81 Mg Chew Tab*) 81 mg PO DAILY [facility] Last Admin: 10/24/17 08:14 Dose: 81 mg Atorvastatin Calcium (Lipitor*) 40 mg PO QPM [facility] Last Admin: 10/24/17 17:08 Dose: 40 mg Carbidopa/Levodopa (Sinemet Cr 50/200(*)) 1 tab.cr PO TID@0800,1300,1700 [facility] Last Admin: 10/24/17 17:07 Dose: 1 tab.cr Dextrose (D50w Syringe 50 Ml*) 12.5 gm IV PUSH .FOR FS < 60 - SS PRN PRN Reason: FS < 60 Divalproex Sodium (Depakote Er Tab(*)) 250 mg PO DAILY [facility] Last Admin: 10/24/17 08:14 Dose: 250 mg Docusate Sodium (Colace Cap*) 100 mg PO DAILY [facility] Last Admin: 10/24/17 13:34 Dose: 100 mg Fentanyl (Duragesic Patch 12 Mcg/Hr *) 12 mcg TRANSDERM Q72HR [facility] Last Admin: 10/23/17 09:24 Dose: 12 mcg Gabapentin (Neurontin Cap(*)) 100 mg PO TID [facility] Heparin Sodium (Porcine) (Heparin Vial(*)) 5,000 units SUBCUT Q12HR [facility] Last Admin: 10/24/17 08:13 Dose: 5,000 units Hydralazine HCl (Apresoline Iv*) 10 mg IV SLOW PU Q6H PRN PRN Reason: BLOOD PRESSURE Cefazolin Sodium/Dextrose (Kefzol 1 Gm In Dextrose Duplex (*)) 1 gm in 50 mls @ 200 mls/hr IVPB Q8H [facility] Last Admin: 10/24/17 17:00 Dose: 200 mls/hr Insulin Glargine (Lantus(*)) 66 units SUBCUT DAILY@2000 [facility] Insulin Human Lispro (Humalog*) 0 units SUBCUT AC [facility]; Protocol Last Admin: 10/24/17 12:08 Dose: 6 units Insulin Human Lispro (Humalog*) 8 units SUBCUT AC [facility] Last Admin: 10/24/17 12:08 Dose: 8 unit Isosorbide Mononitrate (Imdur Er Tab*) 30 mg PO QAM [facility] Last Admin: 10/24/17 08:14 Dose: 30 mg Latanoprost (Xalatan 0.005%*) 1 drop BOTH EYES BEDTIME [facility] Last Admin: 10/23/17 20:42 Dose: 1 drop Levothyroxine Sodium (Synthroid Tab*) 125 mcg PO QAM@0600 [facility] Last Admin: 10/24/17 05:07 Dose: 125 mcg Lisinopril (Prinivil Tab*) 20 mg PO DAILY [facility] Last Admin: 10/24/17 08:14 Dose: 20 mg Magnesium Oxide (Magox 400 Tab*) 400 mg PO BID [facility] Last Admin: 10/24/17 08:14 Dose: 400 mg Meclizine HCl (Antivert Tab*) 25 mg PO Q8HR [facility] Last Admin: 10/24/17 13:33 Dose: 25 mg Metoprolol Succinate (Toprol Xl Tab*) 12.5 mg PO QAM [facility] Last Admin: 10/24/17 08:54 Dose: Not Given Morphine Sulfate (Morphine Inj ((Syringe))*) 1 mg IV Q6H PRN PRN Reason: CHEST PAIN Nitroglycerin (Nitroglycerin Tab 0.4 Mg*) 0.4 mg SL Q5M PRN PRN Reason: ANGINA Last Admin: 10/23/17 18:06 Dose: 0.4 mg Nitroglycerin (Nitroglycerin 5 Mg Patch*) 1 patch TRANSDERM DAILY [facility] Last Admin: 10/24/17 08:13 Dose: 1 patch Ondansetron HCl (Zofran Inj*) 4 mg IV Q6H PRN PRN Reason: NAUSEA Pharmacy Profile Note (Fentanyl Patch Check Q Shift) 1 note FOLLOW UP 0700, 1900 [facility] Last Admin: 10/24/17 07:21 Dose: 1 note Polyethylene Glycol/Electrolytes (Miralax*) 17 gm PO EVERY OTHER DAY [facility] Last Admin: 10/24/17 08:13 Dose: 17 gm Polyethylene Glycol/Electrolytes (Miralax*) 17 gm PO DAILY [facility] Last Admin: 10/24/17 13:33 Dose: 17 gm Pramipexole Dihydrochloride (Mirapex Tab*) 1.5 mg PO TID [facility] Last Admin: 10/24/17 13:33 Dose: 1.5 mg Senna (Senokot Tab*) 1 tab PO DAILY [facility] Last Admin: 10/24/17 13:34 Dose: 1 tab Sertraline HCl (Zoloft*) 100 mg PO DAILY [facility] Last Admin: 10/24/17 08:14 Dose: 100 mg Tramadol HCl (Ultram*) 50 mg PO Q6H PRN PRN Reason: PAIN Last Admin: 10/24/17 13:34 Dose: 50 mg Vital Signs - 8 hr 10/24/17 10/24/17 10/24/17 10:04 11:52 13:34 Temperature 97.4 F Pulse Rate 71 58 Respiratory 18 18 Rate Blood Pressure 144/44 129/58 (mmHg) O2 Sat by Pulse 94 Oximetry 10/24/17 15:15 Temperature 97.5 F Pulse Rate 61 Respiratory 16 Rate Blood Pressure 122/49 (mmHg) O2 Sat by Pulse 94 Oximetry Oxygen Devices in Use Now: None Result Diagrams: 10/24/17 05:25 10/24/17 05:25 Microbiology and Other Data: Microbiology 10/22/17 21:42 Urine Culture - Final Urine Strep Group B 10/22/17 23:33 Aerobic Blood Culture - Preliminary Blood Venous No Growth Day 1 Anaerobic Blood Culture - Preliminary No Growth Day 1 10/22/17 23:29 Aerobic Blood Culture - Preliminary Blood Venous No Growth Day 1 Anaerobic Blood Culture - Preliminary No Growth Day 1 Assess/Plan/Problems-Billing Assessment: - Patient Problems (1) Hypertensive urgency Current Visit: Yes Status: Acute Code(s): I16.0 - HYPERTENSIVE URGENCY SNOMED Code(s): 333204639 Comment: -Resolved -Revisited late PM -Troponins and CXR are all unremarkable -EKG shows no change from previous -Increased PRN Hydralazine -Continue Lisinopril in addition of Norvasc -Continue Nitropatch as well as PRN NTG SL -Declines stress test given she mentions that even if it was positive, she would not like to have cardiac cath and will defer (2) Chest pain Current Visit: Yes Status: Acute Code(s): R07.9 - CHEST PAIN, UNSPECIFIED SNOMED Code(s): 93137823 Comment: -Please see above discussion (3) Lower extremity pain Current Visit: Yes Status: Acute Comment: -BL -Likely due to peripheral neuropathy -Continue current pain meds -Will start pt on Gabapentin (4) Cellulitis of right lower extremity Current Visit: Yes Status: Acute Code(s): L03.115 - CELLULITIS OF RIGHT LOWER LIMB SNOMED Code(s): 776407729 Comment: -Continue ancef -Blood cultures (-) x 1 day -Will continue to follow cultures (5) Vertigo Current Visit: Yes Status: Acute Code(s): R42 - DIZZINESS AND GIDDINESS SNOMED Code(s): 019873497 Comment: -MRI of brain does not suggest CVA and likely due to BPPV given exacerbated by position change -Will change PRN Meclizine to scheduled doses q8H (6) Diabetes 1.5, managed as type 2 Current Visit: Yes Status: Acute Code(s): E10.9 - TYPE 1 DIABETES MELLITUS WITHOUT COMPLICATIONS SNOMED Code(s): 337553924 Comment: -Improved control -Continue watchful waiting and re-adjust tomorrow if continues to have FS >200 (7) DVT prophylaxis Current Visit: Yes Status: Acute Code(s): RMF2761 - SNOMED Code(s): 460807840 Comment: -Decreased heparin SQ to q12h Status and Disposition: -Appreciate PT eval; For D/C back to [facility] when medically ready
[2017-10-24] MEDS ORDERED: Insulin GLARGINE(*) 1 UNITS UNIT SUBCUT SCH (20:00)
[2017-10-24] MEDS: Gabapentin CAP(*) 100 MG PO SCH (20:33)
[2017-10-24] MEDS: Latanoprost 0.005%* 2.5 ml BTL BOTH EYES SCH (20:33)
[2017-10-25] MEDS: Meclizine TAB* 12.5 MG PO SCH ×3 (05:56→21:32)
[2017-10-25] MEDS: Levothyroxine TAB* 125 MCG TAB PO SCH (05:56)
[2017-10-25 06:32] LABS: ABS Basophils 0.1 10^3/ul (0-0.2); ABS Eosinophils 0.3 10^3/ul (0-0.6); ABS Monocytes 0.6 10^3/ul (0-0.8); ABS Neutrophils 8.1 10^3/ul (1.5-7.7); ABS Nucleated RBC 0 10^3/ul; Eosinophil % 3.3 % (0-6); Hematocrit 37 % (35-47); Lymphocyte % 9.8 % (25-47); Mean Corpuscular HGB Conc 33 g/dl (31-36); Mean Corpuscular Hemoglobin 28 pg (27-31); Mean Corpuscular Volume 85 fL (80-97); Mean Platelet Volume 8.1 um3 (7.4-10.4); Nucleated Red Blood Cells % 0; Platelet Count 158 10^3/ul (150-450); Red Blood Count 4.27 10^6/ul (4.00-5.40); Red Cell Distribution Width 17 % (10.5-15)
[2017-10-25 06:48] LABS: EGFR Non-African American 45.3 (>60)
[2017-10-25] MEDS: fentaNYL Patch Check Q Shift 1 NOTE FOLLOW UP SCH ×2 (08:41→19:14)
[2017-10-25] MEDS: Nitroglycerin 0.2 MG/HR PATCH* (5 MG) TRANSDERM SCH (08:43)
[2017-10-25] MEDS: ceFAZolin 1 GM in Dextrose (*) 1 GM/50 ML BAG IVPB SCH ×2 (08:43→16:22)
[2017-10-25] MEDS: Magnesium Oxide TAB* 400 MG PO SCH ×2 (08:44→21:35)
[2017-10-25] MEDS: Heparin VIAL(*) 5000 UNITS/ML VIAL (FIVE THOUSAND) SUBCUT SCH ×2 (08:44→21:34)
[2017-10-25] MEDS: Isosorbide Mononitrate ER TAB* 30 MG PO SCH (08:44)
[2017-10-25] MEDS: Lisinopril TAB* 10 MG PO SCH (08:44)
[2017-10-25] MEDS: Gabapentin CAP(*) 100 MG PO SCH ×3 (08:44→21:33)
[2017-10-25] MEDS: Pramipexole TAB* 0.5 MG PO SCH ×3 (08:44→21:33)
[2017-10-25] MEDS: Senna TAB PO SCH (08:45)
[2017-10-25] MEDS: Sertraline* 100 MG TAB PO SCH (08:45)
[2017-10-25] MEDS: Aspirin 81 mg CHEW TAB* 81 MG TAB.CHEW PO SCH (08:45)
[2017-10-25] MEDS: amLODIPine TAB* 5 MG PO SCH (08:45)
[2017-10-25] MEDS: Metoprolol Succinate XL TAB* 25 MG PO SCH (08:46)
[2017-10-25] MEDS: Polyethylene Glycol 3350* 17 GM PACKET PO SCH (08:46)
[2017-10-25] MEDS: Docusate CAP* 100 MG PO SCH (08:46)
[2017-10-25] MEDS: Insulin LISPRO* 1 UNITS UNIT SUBCUT SCH ×6 (08:46→17:23)
[2017-10-25] MEDS: Carbidopa/Levodop CR 50/200(*) TAB.CR PO SCH ×3 (10:00→17:23)
[2017-10-25] MEDS: Isosorbide Mononitrate ER TAB* 60 MG PO SCH (10:00)
[2017-10-25] MEDS: Acetaminophen TAB* 325 MG PO SCH ×2 (10:00→21:31)
[2017-10-25] MEDS: Divalproex ER TAB(*) 250 MG PO SCH (10:00)
--- NOTE | 2017-10-25 14:28 | PN ---
Subjective Date of Service: 10/25/17 Interval History: Pt seen and examined. Meds and labs reviewed. CC: BLLE pain, 5/10, improved from yesterday ROS: Denied CHRISTOPHER/dizziness, F/C, N/V, CP, SOB, increased cough, sputum production , abd pain, diarrhea, constipation, dysuria, myalgias, arthralgias, throat pain , and new skin lesions. The rest of the 14 point ROS are unremarkable. PHYSICAL EXAM: GEN APPEARANCE: Awake, not in acute distress HEENT: NC/AT, PERRLA, moist oral mucosa, (-) throat erythema NECK: Soft, supple, (-) cervical LAD, (-)JVD HEART: S1S2 WNL, RRR, No MRG CHEST: CTA, BL, GAE, No W/R/R ABD: Soft, ND/NT, NABS 4x Q EXT: No C/C/BLLE edema, 3+ right and 2+left, with surgical scars BL knee area SKIN: Warm to touch PSYCH: No active psychosis, hallucinations, depression, SI/HI Objective Active Medications: Acetaminophen (Tylenol Tab*) 975 mg PO BID [facility] Last Admin: 10/25/17 10:00 Dose: 975 mg Allopurinol (Zyloprim Tab*) 300 mg PO QPM [facility] Last Admin: 10/24/17 17:07 Dose: 300 mg Alprazolam (Xanax Tab*) 0.25 mg PO BEDTIME PRN PRN Reason: ANXIETY Amlodipine Besylate (Norvasc Tab*) 10 mg PO DAILY [facility] Last Admin: 10/25/17 08:45 Dose: 10 mg Aspirin (Aspirin 81 Mg Chew Tab*) 81 mg PO DAILY [facility] Last Admin: 10/25/17 08:45 Dose: 81 mg Atorvastatin Calcium (Lipitor*) 40 mg PO QPM [facility] Last Admin: 10/24/17 17:08 Dose: 40 mg Carbidopa/Levodopa (Sinemet Cr 50/200(*)) 1 tab.cr PO TID@0800,1300,1700 [facility] Last Admin: 10/25/17 14:12 Dose: 1 tab.cr Dextrose (D50w Syringe 50 Ml*) 12.5 gm IV PUSH .FOR FS < 60 - SS PRN PRN Reason: FS < 60 Divalproex Sodium (Depakote Er Tab(*)) 250 mg PO DAILY [facility] Last Admin: 10/25/17 10:00 Dose: 250 mg Docusate Sodium (Colace Cap*) 100 mg PO DAILY [facility] Last Admin: 10/25/17 08:46 Dose: Not Given Fentanyl (Duragesic Patch 12 Mcg/Hr *) 12 mcg TRANSDERM Q72HR [facility] Last Admin: 10/23/17 09:24 Dose: 12 mcg Gabapentin (Neurontin Cap(*)) 200 mg PO TID [facility] Last Admin: 10/25/17 14:13 Dose: 200 mg Heparin Sodium (Porcine) (Heparin Vial(*)) 5,000 units SUBCUT Q12HR [facility] Last Admin: 10/25/17 08:44 Dose: 5,000 units Hydralazine HCl (Apresoline Iv*) 10 mg IV SLOW PU Q6H PRN PRN Reason: BLOOD PRESSURE Cefazolin Sodium/Dextrose (Kefzol 1 Gm In Dextrose Duplex (*)) 1 gm in 50 mls @ 200 mls/hr IVPB Q8H [facility] Last Admin: 10/25/17 08:43 Dose: 200 mls/hr Insulin Glargine (Lantus(*)) 70 units SUBCUT DAILY@2000 [facility] Insulin Human Lispro (Humalog*) 0 units SUBCUT AC [facility]; Protocol Last Admin: 10/25/17 12:28 Dose: 9 units Insulin Human Lispro (Humalog*) 10 units SUBCUT AC [facility] Isosorbide Mononitrate (Imdur Er Tab*) 60 mg PO DAILY [facility] Last Admin: 10/25/17 10:00 Dose: 60 mg Latanoprost (Xalatan 0.005%*) 1 drop BOTH EYES BEDTIME [facility] Last Admin: 10/24/17 20:33 Dose: 1 drop Levothyroxine Sodium (Synthroid Tab*) 125 mcg PO QAM@0600 [facility] Last Admin: 10/25/17 05:56 Dose: 125 mcg Lisinopril (Prinivil Tab*) 40 mg PO DAILY [facility] Magnesium Oxide (Magox 400 Tab*) 400 mg PO BID [facility] Last Admin: 10/25/17 08:44 Dose: 400 mg Meclizine HCl (Antivert Tab*) 25 mg PO Q8HR [facility] Last Admin: 10/25/17 14:13 Dose: 25 mg Metoprolol Succinate (Toprol Xl Tab*) 12.5 mg PO QAM [facility] Last Admin: 10/25/17 08:46 Dose: Not Given Morphine Sulfate (Morphine Inj ((Syringe))*) 1 mg IV Q6H PRN PRN Reason: CHEST PAIN Nitroglycerin (Nitroglycerin Tab 0.4 Mg*) 0.4 mg SL Q5M PRN PRN Reason: ANGINA Last Admin: 10/23/17 18:06 Dose: 0.4 mg Ondansetron HCl (Zofran Inj*) 4 mg IV Q6H PRN PRN Reason: NAUSEA Pharmacy Profile Note (Fentanyl Patch Check Q Shift) 1 note FOLLOW UP 0700, 1900 [facility] Last Admin: 10/25/17 08:41 Dose: 1 note Polyethylene Glycol/Electrolytes (Miralax*) 17 gm PO EVERY OTHER DAY [facility] Last Admin: 10/24/17 08:13 Dose: 17 gm Polyethylene Glycol/Electrolytes (Miralax*) 17 gm PO DAILY [facility] Last Admin: 10/25/17 08:46 Dose: Not Given Pramipexole Dihydrochloride (Mirapex Tab*) 1.5 mg PO TID [facility] Last Admin: 10/25/17 14:12 Dose: 1.5 mg Senna (Senokot Tab*) 1 tab PO DAILY [facility] Last Admin: 10/25/17 08:45 Dose: Not Given Sertraline HCl (Zoloft*) 100 mg PO DAILY [facility] Last Admin: 10/25/17 08:45 Dose: 100 mg Tramadol HCl (Ultram*) 50 mg PO Q6H PRN PRN Reason: PAIN Last Admin: 10/24/17 13:34 Dose: 50 mg Vital Signs - 8 hr 10/25/17 10/25/17 10/25/17 08:14 08:44 11:32 Temperature 97.7 F Pulse Rate 57 Respiratory 20 18 Rate Blood Pressure 175/69 136/60 (mmHg) O2 Sat by Pulse 97 Oximetry 10/25/17 10/25/17 10/25/17 11:49 11:57 14:13 Temperature Pulse Rate Respiratory 18 18 16 Rate Blood Pressure (mmHg) O2 Sat by Pulse Oximetry Oxygen Devices in Use Now: None Result Diagrams: 10/25/17 06:15 10/25/17 06:18 Microbiology and Other Data: Microbiology 10/22/17 21:42 Urine Culture - Final Urine Strep Group B 10/22/17 23:33 Aerobic Blood Culture - Preliminary Blood Venous No Growth Day 1 Anaerobic Blood Culture - Preliminary No Growth Day 1 10/22/17 23:29 Aerobic Blood Culture - Preliminary Blood Venous No Growth Day 1 Anaerobic Blood Culture - Preliminary No Growth Day 1 Assess/Plan/Problems-Billing Assessment: - Patient Problems (1) Hypertensive urgency Current Visit: Yes Status: Acute Code(s): I16.0 - HYPERTENSIVE URGENCY SNOMED Code(s): 614095628 Comment: -HTN urgency resolved -D/C NTG patch and increase Imdur and Lisinopril as ordered -Troponins and CXR are all unremarkable -EKG shows no change from previous -Increased PRN Hydralazine -Continue Norvasc -Continue PRN NTG SL -Declines stress test given she mentions that even if it was positive, she would not like to have cardiac cath and will defer (2) Chest pain Current Visit: Yes Status: Acute Code(s): R07.9 - CHEST PAIN, UNSPECIFIED SNOMED Code(s): 80480821 Comment: -Resolved -No evidence of ACS (3) Lower extremity pain Current Visit: Yes Status: Acute Comment: -BL -Likely due to peripheral neuropathy -Continue current pain meds -Will increase Gabapentin -Will place pt on Tylenol PO BID as ordered (4) Cellulitis of right lower extremity Current Visit: Yes Status: Acute Code(s): L03.115 - CELLULITIS OF RIGHT LOWER LIMB SNOMED Code(s): 226262067 Comment: -Continue ancef -Blood cultures (-) x 1 day -Will continue to follow cultures (5) UTI (urinary tract infection) Current Visit: Yes Status: Acute Comment: -Strep group B in urine culture -Continue Cefazolin (6) Vertigo Current Visit: Yes Status: Acute Code(s): R42 - DIZZINESS AND GIDDINESS SNOMED Code(s): 771595807 Comment: -MRI of brain does not suggest CVA and likely due to BPPV given exacerbated by position change -Will change PRN Meclizine to scheduled doses q8H (7) Diabetes 1.5, managed as type 2 Current Visit: Yes Status: Acute Code(s): E10.9 - TYPE 1 DIABETES MELLITUS WITHOUT COMPLICATIONS SNOMED Code(s): 324491870 Comment: -Uncontrolled -Adjusted Lantus and qAC lispro as ordered (8) DVT prophylaxis Current Visit: Yes Status: Acute Code(s): KLC5523 - SNOMED Code(s): 669807487 Comment: -Decreased heparin SQ to q12h Status and Disposition: -Possible D/C Back to [facility] in AM
[2017-10-25] MEDS: Allopurinol TAB* 300 MG PO SCH (16:22)
[2017-10-25] MEDS: Atorvastatin* 40 MG TAB PO SCH (16:22)
[2017-10-25] MEDS: hydrOXYzine HCL TAB* 25 MG PO SCH ×2 (16:22→21:33)
[2017-10-25] MEDS: busPIRone TAB* 10 MG PO SCH ×2 (16:22→21:32)
--- NOTE | 2017-10-25 16:39 | RAD ---
Indication: Chest pain. Single view of the chest performed at 1615 hours demonstrates hyperinflated lung walsh. No evidence of alveolar consolidation. No definite pneumonia is identified. IMPRESSION: NO DEFINITE PNEUMONIA IS IDENTIFIED. HYPERINFLATED LUNG WALSH.
[2017-10-25] MEDS ORDERED: Insulin GLARGINE(*) 1 UNITS UNIT SUBCUT SCH (20:00)
[2017-10-25] MEDS: Latanoprost 0.005%* 2.5 ml BTL BOTH EYES SCH (21:53)
[2017-10-26] MEDS: ceFAZolin 1 GM in Dextrose (*) 1 GM/50 ML BAG IVPB SCH ×2 (01:00→07:36)
[2017-10-26 04:13] LABS: ABS Basophils 0.1 10^3/ul (0-0.2); ABS Eosinophils 0.3 10^3/ul (0-0.6); ABS Lymphocytes 1.4 10^3/ul (1.0-4.8); ABS Monocytes 0.5 10^3/ul (0-0.8); ABS Neutrophils 5.1 10^3/ul (1.5-7.7); ABS Nucleated RBC 0 10^3/ul; Eosinophil % 4.5 % (0-6); Hematocrit 32 % (35-47); Hemoglobin 10.5 g/dl (12.0-16.0); Lymphocyte % 19.1 % (25-47); Mean Corpuscular HGB Conc 33 g/dl (31-36); Mean Corpuscular Hemoglobin 28 pg (27-31); Mean Corpuscular Volume 86 fL (80-97); Mean Platelet Volume 8.4 um3 (7.4-10.4); Nucleated Red Blood Cells % 0.1; Platelet Count 147 10^3/ul (150-450); Red Blood Count 3.76 10^6/ul (4.00-5.40); Red Cell Distribution Width 17 % (10.5-15); White Blood Count 7.4 10^3/ul (3.5-10.8)
[2017-10-26 04:35] LABS: EGFR Non-African American 24.1 (>60)
[2017-10-26] MEDS: hydrOXYzine HCL TAB* 25 MG PO SCH ×2 (05:16→08:55)
[2017-10-26] MEDS: Meclizine TAB* 12.5 MG PO SCH ×2 (05:16→13:50)
[2017-10-26] MEDS: Levothyroxine TAB* 125 MCG TAB PO SCH (05:36)
[2017-10-26] MEDS: fentaNYL Patch Check Q Shift 1 NOTE FOLLOW UP SCH (06:44)
[2017-10-26] MEDS: Polyethylene Glycol 3350* 17 GM PACKET PO SCH ×2 (08:31)
[2017-10-26] MEDS: Metoprolol Succinate XL TAB* 25 MG PO SCH (08:31)
[2017-10-26] MEDS: Senna TAB PO SCH (08:32)
[2017-10-26] MEDS: fentaNYL PATCH 12 MCG/HR TRANSDERM SCH (08:46)
[2017-10-26] MEDS: Heparin VIAL(*) 5000 UNITS/ML VIAL (FIVE THOUSAND) SUBCUT SCH (08:52)
[2017-10-26] MEDS: Insulin LISPRO* 1 UNITS UNIT SUBCUT SCH ×4 (08:53→12:31)
[2017-10-26] MEDS: Gabapentin CAP(*) 100 MG PO SCH ×2 (08:54→13:50)
[2017-10-26] MEDS: Isosorbide Mononitrate ER TAB* 60 MG PO SCH (08:54)
[2017-10-26] MEDS: Acetaminophen TAB* 325 MG PO SCH (08:54)
[2017-10-26] MEDS: Sertraline* 100 MG TAB PO SCH (08:54)
[2017-10-26] MEDS: Carbidopa/Levodop CR 50/200(*) TAB.CR PO SCH ×2 (08:54→12:32)
[2017-10-26] MEDS: busPIRone TAB* 10 MG PO SCH (08:54)
[2017-10-26] MEDS: Aspirin 81 mg CHEW TAB* 81 MG TAB.CHEW PO SCH (08:55)
[2017-10-26] MEDS: amLODIPine TAB* 5 MG PO SCH (08:55)
[2017-10-26] MEDS: Magnesium Oxide TAB* 400 MG PO SCH (08:55)
[2017-10-26] MEDS ORDERED: Pramipexole TAB* 0.125 MG PO SCH (09:00)
[2017-10-26] MEDS ORDERED: Lisinopril TAB* 10 MG PO SCH (09:00)
[2017-10-26] MEDS: Docusate CAP* 100 MG PO SCH (09:03)
[2017-10-26] MEDS: Divalproex ER TAB(*) 250 MG PO SCH (09:40)
[2017-10-26] MEDS ORDERED: NS 0.9% 500 ML* 500 ML IV ONE (10:07)
[2017-10-26] MEDS: Pramipexole TAB* 0.5 MG PO SCH (10:36)
[2017-10-26] MEDS ORDERED: Pramipexole TAB* 0.5 MG PO SCH (14:00)
[2017-10-26 14:19] VITALS: BP 106/40
--- NOTE | 2017-10-26 15:15 | DS ---
CC: Dr. Memo Hunter; Dr. José Patrick DATE OF ADMISSION: 10/23/2017. DATE OF DISCHARGE: 10/26/2017. DATE OF SERVICE: 10/26/2017. DISCHARGE DIAGNOSES: 1. Hypertensive urgency, resolved. Hypertension improving. 2. Chest pain, likely secondary to angina. No evidence of acute coronary syndrome with troponins being normal; troponins trended at least 3 x. The patient refuses to undergo stress test and any advanced cardiology procedures and will defer. 3. Right lower extremity cellulitis. 4. Peripheral neuropathy. 5. UTI. 6. Vertigo, likely BPPV. 7. Diabetes mellitus, improved control. HISTORY OF PRESENT ILLNESS/HOSPITAL COURSE: The patient is an 86-year-old, lady with a history of diabetes, CKD, and depression who was sent to the ER on 10/22/2017 from [facility] when she developed an episode of chest pain. She mentioned that she felt dizzy and has been worsening with position change. On admission, she was then diagnosed to have right lower extremity pain, likely secondary to cellulitis and her dizziness was clarified to be that of vertigo. Therefore, she had an MRI of her head which ruled out CVA, especially a lacunar infarct. During her course, she was found to have intermittent chest pain, although multiple rounds of cycles of troponins were found to be negative, which was relieved with nitroglycerin and Morphine. Her Imdur was increased from 30 to 60 with prn nitroglycerin sublingual. She had been offered stress test during this admission; however, she mentioned that she is not interested in doing a stress test given she was not one to pursue cardiac catheterization, assuming that it was positive and hence we deferred. On subsequent evaluation, she was also found to have uncontrolled blood pressure and in fact had chest pain while her blood pressure was in the 200 systolic and hence likely was having some hypertensive urgency as well. Her antihypertensive medications were nitrated and has been placed on new antihypertensives prior to this discharge. Her diabetes was also found to be uncontrolled and was subsequently adjusted during this hospitalization stay. Her recurrent chest pain could possibly be due to angina given her significant cardiac history, however, may also have a component of anxiety as well, and the patient has done well and stopped complaining of further chest pain when her blood pressure was well-controlled and when she was placed on Hydroxyzine as well as Buspirone, and hence will continue this. She had been advised to follow-up and/or call her PCP/facility MD within three days post DC at [facility]. She had been advised that if her symptoms resume or develop new ones or feel unwell for any reason, to call her facility MD/PCP. If her facility MD/PCP cannot entertain given scheduling issues alone, she has been advised to connect [facility] if the issue is not emergent. She was advised to call my office regarding any questions, concerns, or further clarifications regarding her discharge plans and prescriptions and to take her medications as prescribed. DISCHARGE MEDICATIONS: 1. Allopurinol 300 mg p.o. q.p.m. 2. Alprazolam 0.25 mg p.o. at bedtime. 3. Atorvastatin 40 mg p.o. q.p.m. 4. Buspirone 10 mg p.o. b.i.d. 5. Carbidopa/Levodopa one tab p.o. t.i.d. 6. Divalproex ER 250 mg p.o. daily. 7. Fentanyl patch 12 mcg transdermal q.72 hours. 8. Gabapentin 200 mg p.o. t.i.d. 9. Hydroxyzine 20 mg p.o. q.6 hours for the next few days and then prn thereafter. 10. Insulin Glargine 70 units subcu daily. 11. Insulin Lispro 10 unites subcu q.a.c. 12. Isosorbide Mononitrate 60 mg p.o. daily. 13. Latanoprost one drop to both eyes at bedtime. 14. Levothyroxine 125 mcg p.o. q.a.m. 15. Lisinopril 40 mg p.o. daily. 16. Magnesium Oxide 400 mg p.o. b.i.d. 17. Meclizine 25 mg p.o. q.8 for 14 days, then prn thereafter. 18. Metoprolol Succinate 12.5 mg p.o. q.a.m. 19. Polyethylene Glycol/MiraLax 17 gm p.o. every other day. 20. Pramipexole 1.5 mg p.o. t.i.d. 21. Senna one tab p.o. daily. 22. Sertraline 100 mg p.o. daily. 23. Tramadol 50 mg p.o. q.4 prn. 24. Tylenol 650 mg p.o. q.4 prn. 25. Aspirin 81 mg p.o. q.p.m. 26. Cholecalciferol 2,000 units p.o. q.a.m. REVIEW OF SYSTEMS: The patient denied any current headaches, dizziness, fevers , chills, nausea, vomiting, chest pain, shortness of breath, increased cough nor sputum production, abdominal pain, diarrhea, constipation, pain and/or increased frequency on urination, myalgias, arthralgias, throat pain, or new skin lesions. The rest of the 14 point review of systems are otherwise unremarkable. PHYSICAL EXAMINATION: General appearance: The patient is awake, not in acute distress. Vital Signs: Most recent of records, blood pressure 106/40 from previous of 104/43, 121/45, 111/41, temperature 97.6 degrees Fahrenheit, 56 beats per minute heart rate, 18 per minute respiratory rate, saturating 93 percent room air. HEENT: Normocephalic, atraumatic. PERRLA. Moist oral mucosa. Negative throat erythema. Neck: Soft and subtle with no cervical lymphadenopathy, no JVD. Heart: S1, S2 within normal limits. Regular rate and rhythm. No murmurs, rubs, or gallops. Chest: Clear to auscultation bilaterally. Good air entry. No wheezes, rales, or rhonchi. Abdomen: Soft, nondistended, nontender. Normal active bowel sounds times four. Extremities: No cyanosis or clubbing with improved edema on the right, still a little bit larger than the left edema with surgical scars in bilateral knee areas. Skin: Warm to touch. Psychiatric: No active psychosis, hallucinations, depression, suicidal nor homicidal ideation. TIME SPENT: Total time spent evaluating the patient, reviewing pertinent data and appropriate documentation is 50 minutes. [id number]/[facility] #: [id number] LINDA
== END 2017-10-26 16:07 | DRG 305 ==
LOC: ED 18:55 → MEDTELE 22:57 → OBSVTOIN 10-23 14:43
PROVIDERS: ADMIT Hospitalist; ATTEND Student in an Organized Health Care Education/Training Program
DX: I16.0 Hypertensive urgency (principal); L03.115 Cellulitis of right lower limb; N39.0 Urinary tract infection, site not specified; H81.10 Benign paroxysmal vertigo, unspecified ear; I13.0 Hypertensive heart and chronic kidney disease with heart failure and stage 1 through stage 4 chronic kidney disease, or unspecified chronic kidney disease; I20.9 Angina pectoris, unspecified; E03.9 Hypothyroidism, unspecified; I50.9 Heart failure, unspecified; K21.9 Gastro-esophageal reflux disease without esophagitis; N18.9 Chronic kidney disease, unspecified; E11.39 Type 2 diabetes mellitus with other diabetic ophthalmic complication; H42 Glaucoma in diseases classified elsewhere; M19.90 Unspecified osteoarthritis, unspecified site; M10.9 Gout, unspecified; E11.36 Type 2 diabetes mellitus with diabetic cataract; G43.909 Migraine, unspecified, not intractable, without status migrainosus; G20 Parkinson's disease; F41.9 Anxiety disorder, unspecified; F32.9 Major depressive disorder, single episode, unspecified; Z66 Do not resuscitate; K44.9 Diaphragmatic hernia without obstruction or gangrene; E11.65 Type 2 diabetes mellitus with hyperglycemia; G25.81 Restless legs syndrome; E11.51 Type 2 diabetes mellitus with diabetic peripheral angiopathy without gangrene; B95.1 Streptococcus, group B, as the cause of diseases classified elsewhere; E11.42 Type 2 diabetes mellitus with diabetic polyneuropathy; R00.1 Bradycardia, unspecified; Z88.5 Allergy status to narcotic agent; Z88.2 Allergy status to sulfonamides; Z91.040 Latex allergy status; Z79.82 Long term (current) use of aspirin; Z93.3 Colostomy status; Z79.4 Long term (current) use of insulin; Z90.49 Acquired absence of other specified parts of digestive tract; Z90.710 Acquired absence of both cervix and uterus; Z84.2 Family history of other diseases of the genitourinary system; Z82.49 Family history of ischemic heart disease and other diseases of the circulatory system; Z83.3 Family history of diabetes mellitus; Z80.0 Family history of malignant neoplasm of digestive organs; Z97.4 Presence of external hearing-aid; Z85.828 Personal history of other malignant neoplasm of skin
CPT/HCPCS: 36415; 70450; 70551; 71045; 80048; 80053; 80061; 81003; 81015; 82565; 83036; 83735; 84100; 84484; 84520; 85025; 85610; 85652; 85730; 86140; 87040; 87077; 87086; 93005; 99283; A9270-GY; G8978-GP-CM; G8979-GP-CK; J0360; J0690; J1644; J3475

== ENCOUNTER 2018-01-13 09:51 | Inpatient (IN) | payer MEDICARE, BC ==
--- NOTE | 2018-01-13 10:21 | ED ---
Lower Extremity - HPI Summary HPI Summary: An 87 y/o female brought in by [facility] presents to [facility] with a chief complaint of right leg pain since 01/12/18. She rates her pain as 3/10. She has had intermittent pain for 2-3 weeks. She has a Hx of PNA, COPD and blood clots. She states that her blood clots have always been in her right leg. She endorses right calf swelling, cough and SOB but reports that her breathing has been better with O2. She had an O2 sat of 90% before being transferred here. The patient denies Fever, Chills, Erythema (eyes), Sore throat, Chest pain, Abdominal pain, Vomiting, Nausea, Dysuria, Hematuria, Rash and Dizziness. She reports that she has been taking pain medication but her pain is still present. - History of Current Complaint Chief Complaint: EDExtremityLower Stated Complaint: LEG PAIN Hx Obtained From: Patient, EMS Mechanism Of Injury: Unknown Onset of Pain: Prior to Arrival Onset/Duration: Still Present Severity Initially: Moderate Severity Currently: Moderate Pain Intensity: 3 Pain Scale Used: 0-10 Numeric Timing: Intermittent, Lasting Weeks Location: Is Discrete @ - right calf Associated Signs And Symptoms: Positive: Swelling Aggravating Factor(s): Nothing Alleviating Factor(s): Nothing - Allergies/Home Medications Allergies/Adverse Reactions: Allergies Allergy/AdvReac Type Severity Reaction Status Date / Time latex Allergy Intermediate Hives/Diff. Verified 10/22/17 21:03 Breathing/I tching Sulfa (Sulfonamide Allergy Intermediate Hives/Rash Verified 10/22/17 21:03 Antibiotics) codeine AdvReac Mild GI Upset Verified 10/22/17 21:03 Home Medications: Home Medications Albuterol Sulfate 1 inh PO TID 01/13/18 [History Confirmed 01/13/18] Doxycycline Monohydrate 1 cap PO BID 01/13/18 [History Confirmed 01/13/18] Glycerin ADULT SUPP* 1 supp UT DAILY PRN 01/13/18 [History Confirmed 01/13/18] Lactobacillus Acidophilus [Acidophilus Lactobacilli] 1 cap PO DAILY 01/13/18 [ History Confirmed 01/13/18] Magnesium Hydroxide LIQ* [Milk of Magnesia LIQ*] 30 ml PO SEE INSTRUCTIONS PRN 01/13/18 [History Confirmed 01/13/18] Multivitamin with Minerals 1 tab PO DAILY 01/13/18 [History Confirmed 01/13/18] guaiFENesin [Guaifenesin] 1 tab PO BID 01/13/18 [History Confirmed 01/13/18] PMH/Surg Hx/FS Hx/Imm Hx Endocrine/Hematology History: Reports: Hx Diabetes, Hx Thyroid Disease - hypothyroidism Cardiovascular History: Reports: Hx Cardiomegaly, Hx Congestive Heart Failure, Hx Hypertension Denies: Hx Pacemaker/ICD GI History: Reports: Hx Gastroesophageal Reflux Disease, Hx Hiatal Hernia, Other GI Disorders - has a colostomy, Hx diverticulitis History: Reports: Hx Chronic Renal Failure Denies: Hx Renal Disease Musculoskeletal History: Reports: Hx Arthritis, Other Musculoskeletal History - gout Sensory History: Reports: Hx Cataracts, Hx Contacts or Glasses - reading, has them here, Hx Glaucoma, Hx Hearing Aid - b/l, has them here Opthamlomology History: Reports: Hx Cataracts, Hx Contacts or Glasses - reading , has them here, Hx Glaucoma Neurological History: Reports: Hx Headaches, Hx Migraine, Hx Nerve Disease - restless legs syndrome, Hx Seizures - myoclonic, Other Neuro Impairments/ Disorders - parkinson's Psychiatric History: Reports: Hx Anxiety, Hx Depression Denies: Hx Panic Disorder - Cancer History Cancer Type, Location and Year: skin Hx Chemotherapy: No - Surgical History Surgery Procedure, Year, and Place: HYSTERECTOMY, APPY, CHOLECYSTECTOMY, HX OF COLOSTOMY. partial bowel obstruction,. glaucoma eye surgery x3, bilateral knees, right shoulder, bladder x2 Hx Anesthesia Reactions: No Infectious Disease History: No Infectious Disease History: Denies: Traveled Outside the [place] in Last 30 Days - Family History Known Family History: Negative: Renal Disease - Social History Alcohol Use: None Substance Use Type: Reports: None Smoking Status (MU): Never Smoked Tobacco Review of Systems Negative: Fever, Chills Negative: Erythema Negative: Sore Throat Negative: Chest Pain Positive: Shortness Of Breath, Cough Negative: Abdominal Pain, Vomiting, Nausea Negative: dysuria, hematuria Positive: Myalgia - right calf pain, Edema - right calf Negative: Rash Neurological: Negative - dizziness All Other Systems Reviewed And Are Negative: Yes Physical Exam - Summary Physical Exam Summary: Constitutional: Well-developed, Well-nourished, Alert. (-) Distressed Skin: Warm, Dry HENT: Normocephalic; Atraumatic Eyes: Conjunctiva normal Neck: Musculoskeletal ROM normal neck. (-) JVD, (-) Stridor, (-) Tracheal deviation Cardio: Rhythm regular, rate normal, Intact distal pulses; The pedal pulses are 2+ and symmetric. Radial pulses are 2+ and symmetric. (+) Systolic Murmur Pulmonary/Chest wall: Effort normal. (-) Respiratory distress, (-) Wheezes, (-) Rales Abd: Soft, (-) epigastric tenderness, (-) Distension, (-) Guarding, (-) Rebound Musculoskeletal: Right calf tenderness Lymph: (-) Cervical adenopathy Neuro: Alert, Oriented x3 Psych: Mood and affect Normal Triage Information Reviewed: Yes Vital Signs On Initial Exam: Initial Vitals Temp Pulse Resp BP Pulse Ox 97.8 F 78 18 133/59 94 01/13/18 09:55 01/13/18 09:55 01/13/18 09:55 01/13/18 09:55 01/13/18 09:55 Vital Signs Reviewed: Yes Diagnostics - Vital Signs Vital Signs Temp Pulse Resp BP Pulse Ox 01/13/18 10:00 78 01/13/18 09:55 97.8 F 78 18 133/59 94 - Laboratory Result Diagrams: 01/13/18 12:26 01/13/18 12:26 Lab Statement: Any lab studies that have been ordered have been reviewed, and results considered in the medical decision making process. - Radiology CXR Radiology Interpretation Completed By: Radiologist Summary of Radiographic Findings: 1. CARDIOMEGALY. 2. COPD. 3. PULMONARY VASCULAR CONGESTION. ED physician has reviewed this imaging report. - Ultrasound No standard instances Ultrasound Interpretation Completed By: Radiologist Summary of Ultrasound Findings: Venous dopppler study: no evidence of deep venous thrombosis is identified. ED physician has reviewed this imaging report. Re-Evaluation - Re-Evaluation First Eval Re-Evaluation Time: 13:00 Change: Unchanged Comment: Patient is in pain and will be given Fentanyl. Second Eval Re-Evaluation Time: 14:40 Change: Unchanged Comment: updated power of trademark attorney. Lower Extremity Course/Dx - Course Course Of Treatment: An 87 y/o female brought in by [facility] ambulance presents to [facility] with a chief complaint of right leg pain since 01/12/18. She rates her pain as 3/10. She has had intermittent pain for 2-3 weeks. She has a Hx of PNA, COPD and blood clots. She states that her blood clots have always been in her right leg. She endorses right calf swelling, cough and SOB but reports that her breathing has been better with O2. She had an O2 sat of 90% before being transferred here. The patient denies Fever, Chills, Erythema (eyes), Sore throat , Chest pain, Abdominal pain, Vomiting, Nausea, Dysuria, Hematuria, Rash and Dizziness. She reports that she has been taking pain medication but her pain is still present. Her troponin I was remarkable at 0.05. Her PE was remarkable with right calf tenderness and a systolic murmur. Her CXR impression was 1. CARDIOMEGALY. 2. COPD. 3. PULMONARY VASCULAR CONGESTION. Her venous doppler study impression was: no evidence of deep venous thrombosis is identified. The patient was given fentanyl IV in the ED course. We updated the patient's power of trademark attorney. Dx: health care associated PNA and hypoxia. After speaking with Dr. Gómez, hospitalist, she will accept the patient for admission. - Diagnoses Provider Diagnoses: HCAP (healthcare-associated pneumonia), Hypoxia - Physician Notifications Discussed Care Of Patient With: Arianne Gómez Time Discussed With Above Provider: 14:40 Instructed by Provider To: Admit As Inpatient Discharge - Sign-Out/Discharge Documenting (check all that apply): Patient Departure - admit - Discharge Plan Condition: Fair Disposition: ADMITTED TO [facility] - Attestation Statements Document Initiated by Scribe: Yes Documenting Scribe: Kartik Carvalho Provider For Whom Scribe is Documenting (Include Credential): Samir Cheney MD Scribe Attestation: Kartik Ventura, scribed for Samir Cheney MD on 01/13/18 at [id number].
--- OUTSIDE RECORDS SUMMARY | 2018-01-13 12:22 | XMS REPORT | Continuity of Care Document ---
:1930 External Reference #:[id number] Author Name Mara Glaser Care Team Providers Name Role Phone Rachel Mendoza M.D. Care Team Information Squad Leader Unavailable Payers Type Date Identification Numbers Payment Provider Subscriber Policy Number: [id number] Medicare Ayanna Peck PayID: [id number] [address] [place] [address] Policy Number: [id number] [facility] Ayanna Peck PayID: [id number] [address] [address] [place] [address] PayID: [id number] [facility]ck [address] [place] [address] Advance Directives Description No Information Available Problems Date Description Provider Status Onset: 01/23/2015 Carpal tunnel syndrome Rachel Mendoza M.D. Active Note: right severe Onset: 01/23/2015 Parkinson's disease Rachel Mendoza M.D. Active Onset: 01/23/2015 Restless legs Rachel Mendoza M.D. Active Family History Date Family Member(s) Problem(s) Comments General Breast Cancer General Lung Cancer General Diabetes Father due to Diabetes () Father due to Heart Disease () Mother due to Breast Cancer () Social History Type Date Description Comments Sex Unknown Marital Status Lives With Assisted living Occupation Retired Tobacco Use Start: Unknown Never Smoked Cigarettes Smoking Status Reviewed: 01/05/18 Never Smoked Cigarettes ETOH Use Never used alcohol Tobacco Use Start: Unknown Patient has never smoked Recreational Drug Use Never Used Drugs Exercise Type/Frequency Does not exercise Walk to and from [place] Allergies, Adverse Reactions, Alerts Date Description Reaction Status Severity Comments 07/19/2014 Codeine Active nausea 07/19/2014 Indomethacin Active unknown 07/19/2014 Sulfa Antibiotics Active rash 07/19/2014 Lisinopril Active unknown 10/17/2014 Latex Active skin reaction Medications Medication Date Status Form Strength Qnty SIG Indications Ordering Provider Aspirin Adult 04/[address] 81mg 120ta take one James S. Low Strength /2016 bs tablet by Bass, mouth DO FACC daily. Depakote 02/[address] 250mg 30tab 1 by mouth G25.3 Rachel /2015 s at dinner Reji, collin M.DMedhat Allopurinol Active Tablets 300mg 1 by mouth Unknown /0000 every day Miralax Active Packet 3350NF 17 gm bvy Unknown /0000 mouth every other day Pramipexole Active Tablets 1.5mg 1 tab by Unknown Dihydrochloride /0000 mouth tid Magnesium Oxide Active Tablets 400mg 1 by mouth Unknown /0000 bid Lantoprost Active Solution 0.005% one drop to Unknown /0000 both at bedtime Glucagon Active Kit 1mg As directed Unknown Emergency /0000 Acetaminophen Active Tablets 325mg 2 tablets Unknown /0000 by mouth every 4 hours as needed for pain/fever Synthroid Active Tablets 125mcg 1 by mouth Unknown /0000 every day Milk Of Magnesia Active Suspension 30 Unknown /0000 milliliters by mouth as needed Alprazolam Active Tablets 0.25mg one by Unknown /0000 mouth at bedtime Ibuprofen Active Tablets 200mg 3 by mouth Unknown /0000 every 2 hrs as needed pain Ultram Active Tablets 50mg one tablet Unknown /0000 every 4 hours as needed for pain orally Isosorbide Active Tablets 60mg 1 by mouth Unknown Mononitrate /0000 every day Senna Active Tablets 8.6mg 1 by mouth Unknown /0000 twice a day Buspirone HCL Active Tablets 10mg 1po qd Unknown /0000 Sinemet CR Active Tablets ER 50-200mg 1 by mouth Unknown /0000 three times each day Atorvastatin 04/14 Hx Tablets 40mg 90tab 1 by mouth James Lizama Calcium s every day Bass, - DO [facility] 01/04 Isosorbide 04/14 Hx Tablets ER 30mg 1 by mouth James Lizama Mononitrate ER 24HR every day Bass, - DO [facility] 01/05 Nitrostat 04/14 Hx Tablets Sub 0.4mg 25tab one sl James Lizama s q5min up to Bass, - 3 doses as DO [facility] 01/04 needed Toprol XL 04/14 Hx Tablets ER 25mg 30tab 1 by mouth James Lizama 24HR s every day Bass, - DO [facility] 01/[address] 40mg 1 by mouth Unknown /0000 every day - 01/22 Novolog Hx Solution 100Unit/M 20 units Unknown /0000 L with - breakfast, 01/04 24 units /2017 with lunch 24 units at dinner Synthroid Hx Tablets 150mcg 90tab 1 by mouth Unknown /0000 s every day - 04/13 Atorvastatin Hx Tablets 40mg 1 by mouth Unknown Calcium /0000 every day - 01/22 Sertraline HCL Hx Tablets 25mg 3 by mouth Unknown /0000 every day - 01/04 Vitamin D3 Hx Capsules 1000Unit 2 by mouth Unknown /0000 every day - 01/04 Ferrous Sulfate Hx Tablets 325(65Fe) 1 by mouth Unknown /0000 mg every day - 01/22 Carbidopa-Levodo Hx Tablets ER 50-200mg 1 by mouth Unknown pa ER /0000 tid - 01/04 Oxycodone HCL Hx Tablets 5mg 1/2 by Unknown /0000 mouth q 4 - hours as 05/11 needed for /2016 pain. Divalproex [address] 500mg 1 by mouth Unknown Sodium /0000 three a day - 01/22 Lantus Hx Solution 100Unit/M 60 units at Unknown /0000 L bedtime - 01/04 Multivitamins 00/00 Hx Capsules 1 by mouth Unknown /0000 every day - 06/29 Apap 0000 Hx Tablets 325mg 2 tabs by Unknown /0000 mouth as - needed 04/13 Milk Of Magnesia Hx Suspension 400mg/5ML q 8 hours Unknown prn - 05/11 Insulin Glargine Hx 40 Units Sq Unknown at 20:00 - 06/23 Furosemide Hx Tablets 20mg 1 by mouth Unknown every - morning 04/14 Hydrocodone/Apap Hx 5/325mg 1 tablet po Unknown michael 4 - hours as 06/29 Fentanyl Hx Patches 12mcg/HR apply 1 72HR patch every - 3 days 01/04 daily dose=1 patch every 3 days Medications Administered in Office Medication Date Status Form Strength Qnty SIG Indications Ordering Provider Depomedrol Administered Injection Le 40MG 016 [place] Immunizations Description No Information Available Vital Signs Date Vital Result Comment 01/05/2018 9:54am Height 64 inches 5'4" ,approx,pt in WC Weight 210.00 lb Heart Rate 60 /min BP Systolic 122 mmHg BP Diastolic 70 mmHg BMI (Body Mass Index) 36.0 kg/m2 06/30/2017 9:07am Height 64 inches 5'4" ,approx,pt in WC Weight 183.00 lb Heart Rate 56 /min BP Systolic 110 mmHg BP Diastolic 74 mmHg Respiratory Rate 24 /min no respiratory difficulties Pain Level 4 O2 % BldC Oximetry 95 % BMI (Body Mass Index) 31.4 kg/m2 02/26/2017 10:04am Height 64 inches 5'4" ,approx,pt in WC Weight 199.00 lb per pt Heart Rate 66 /min reg BP Systolic Sitting 92 mmHg Lue, lg cuff BP Diastolic Sitting 60 mmHg Lue, lg cuff Respiratory Rate 16 /min Pain Level 0 BMI (Body Mass Index) 34.2 kg/m2 01/26/2017 11:10am Height 64 inches 5'4" ,approx,pt in WC Weight 199.00 lb Pain Level 0 BMI (Body Mass Index) 34.2 kg/m2 12/22/2016 10:32am Height 64 inches 5'4" ,approx,pt in WC Weight 199.00 lb Heart Rate 68 /min BP Systolic 138 mmHg BP Diastolic 88 mmHg Body Temperature 97.7 F BMI (Body Mass Index) 34.2 kg/m2 11/28/2016 11:37am Height 64 inches 5'4" ,approx,pt in WC Heart Rate 62 /min BP Systolic Sitting 132 mmHg BP Diastolic Sitting 60 mmHg Respiratory Rate 16 /min 05/13/2016 10:56am Height 64 inches ,approx,pt in WC Weight 196.00 lb with shoes Heart Rate 56 /min BP Systolic Sitting 126 mmHg Lue large cuff BP Diastolic Sitting 52 mmHg Lue large cuff BP Systolic Standing 126 mmHg Lue large cuff BP Diastolic Standing 60 mmHg Lue large cuff Respiratory Rate 16 /min BMI (Body Mass Index) 33.6 kg/m2 Ejection Fraction 55-60%e echo 04/28/16 05/12/2016 10:20am Heart Rate 60 /min BP Systolic Sitting 112 mmHg BP Diastolic Sitting 66 mmHg Respiratory Rate 14 /min 04/14/2016 12:51pm Height 61.75 inches 5'1.75" Weight 196.00 lb with shoes Heart Rate 66 /min BP Systolic 110 mmHg Rue reg cuff BP Diastolic 60 mmHg Rue reg cuff BP Systolic Sitting 130 mmHg Lue reg cuff BP Diastolic Sitting 70 mmHg Lue reg cuff BP Systolic Standing 118 mmHg Rue reg cuff BP Diastolic Standing 60 mmHg Rue reg cuff Respiratory Rate 17 /min BMI (Body Mass Index) 36.1 kg/m2 07/23/2015 11:24am Height 64 inches 5'4" Weight 185.00 lb Heart Rate 68 /min Respiratory Rate 16 /min Pain Level 5 BMI (Body Mass Index) 31.8 kg/m2 06/25/2015 2:16pm Weight 187.00 lb stated weight Heart Rate 72 /min BP Systolic Sitting 106 mmHg BP Diastolic Sitting 56 mmHg Respiratory Rate 16 /min 02/19/2015 1:43pm Heart Rate 60 /min BP Systolic Sitting 112 mmHg BP Diastolic Sitting 68 mmHg Respiratory Rate 14 /min 01/23/2015 1:01pm Height 64 inches 5'4" Heart Rate 80 /min BP Systolic Sitting 144 mmHg BP Diastolic Sitting 58 mmHg 10/17/2014 11:07am Height 64 inches 5'4" Weight 152.00 lb Heart Rate 60 /min BP Systolic Sitting 134 mmHg BP Diastolic Sitting 56 mmHg BMI (Body Mass Index) 26.1 kg/m2 08/16/2014 9:47am Heart Rate 78 /min BP Systolic Sitting 130 mmHg BP Diastolic Sitting 86 mmHg 07/19/2014 10:22am Heart Rate 68 /min BP Systolic Sitting 136 mmHg BP Diastolic Sitting 54 mmHg 06/28/2014 10:03am Weight 144.00 lb Heart Rate 58 /min BP Systolic Sitting 108 mmHg BP Diastolic Sitting 56 mmHg Results Test Date Facility Test Result H/L Range Note Laboratory test 01/20/2017 [facility] Point of Care 225 mg/dL High 70-100 [address] [place], [place] [id number] [phone] Laboratory test 01/20/2017 [facility] Point of Care 226 mg/dL High 70-100 [address] [place] [address] [phone] Silverware Cleaner: [id number] Silverware Cleaner: [id number] Procedures Date Code Description Status 01/20/2017 54300 Carpal Tunnel Release Completed 01/20/2017 52819 Carpal Tunnel Release Completed 04/28/2016 47865 ECHO Transthoracic, Real-Time 2D With Doppler And Color Completed Flow 04/14/2016 82584 EKG Tracing & Interpretation Completed 07/23/2015 23412 Inject/Drain Joint/Bursa Small W/O US Completed 01/23/2015 63826 Nerve Conduction 05-06 Studies Completed 01/23/2015 38775 Needle Electromyography Each Extremity W/Related Completed Paraspinal Areas 08/16/2014 20458 Rad Exam; Humerus Completed 07/19/2014 25751 Rad Exam; Humerus Completed 06/28/2014 62143 Rad Exam; Humerus Completed Encounters Type Date Location Provider Dx Diagnosis Office Visit 10/26/2017 [place] Wisam Kurtz I10 Essential ( primary) 1:18p indira Johnson MD hypertension Hospitalists R07.9 Chest pain, unspecified L03.115 Cellulitis of right lower limb G62.9 Polyneuropathy, unspecified N39.0 Urinary tract infection, site not specified R42 Dizziness and giddiness E10.9 Type 1 diabetes mellitus without complications Office Visit 10/25/2017 [place] Wisam Kurtz I16.0 Hypertensive 1:18p indira Johnson MD urgency Hospitalists R07.9 Chest pain, unspecified M79.606 Pain in leg, unspecified L03.115 Cellulitis of right lower limb N39.0 Urinary tract infection, site not specified R42 Dizziness and giddiness E10.9 Type 1 diabetes mellitus without complications Office Visit 10/24/2017 [facility] I16.0 Hypertensive 1:17p Assoc,indira Flores MD urgency Hospitalists R07.9 Chest pain, unspecified M79.606 Pain in leg, unspecified L03.115 Cellulitis of right lower limb R42 Dizziness and giddiness E10.9 Type 1 diabetes mellitus without complications Office Visit 10/23/2017 [facility]z I16.0 Hypertensive 1:17p ,indira Flores MD urgency Hospitalists R07.9 Chest pain, unspecified L03.115 Cellulitis of right lower limb R42 Dizziness and giddiness E10.9 Type 1 diabetes mellitus without complications Office Visit 10/22/2017 1:16p [facility]win, M79.661 Pain in Assoc,pc N.P. right lower Hospitalists leg R42 Dizziness and giddiness R07.9 Chest pain, unspecified E10.9 Type 1 diabetes mellitus without complications F41.8 Other specified anxiety disorders M10.9 Gout, unspecified N18.9 Chronic kidney disease, unspecified E03.9 Hypothyroidism, unspecified G20 Parkinson's disease G25.81 Restless legs syndrome I73.9 Peripheral vascular disease, unspecified Office Visit 06/30/2017 [facility] Rachel Mendoza, G20 Parkinson's 9:15a Neurolog[facility] Serv Of M.D. disease [facility] G25.3 Myoclonus G25.81 Restless legs syndrome R53.83 Other fatigue Office [facility]2017 [facility] Right lower Associndira M.D. quadrant pain Hospitalists K43.5 Parastomal hernia without obstruction or gangrene Office Visit 04/20/2017 10:[facility] Right lower Associndira M.D. quadrant pain Hospitalists K43.5 Parastomal hernia without obstruction or gangrene Office Visit 04/19/2017 10:[facility] R[facility] Right lower Assindira leone M.D. quadrant pain Hospitalists K43.5 Parastomal hernia without obstruction or gangrene Office Visit 04/18/2017 10:46a [facility] Moreland R10.31 Right lower Assoc,indira Saucedo M.D.,[facility] quadrant pain Hospitalists K43.5 Parastomal hernia without obstruction or gangrene Office Visit 12/22/2016 10:00a [facility] [place], G56.01 Carpal tunnel Services Of HeatherDMedhat syndrome, right C.M.A. 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 Tonya Germain0 [facility]'s [facility] MMedhatDMedhat disease G56.01 Carpal tunnel syndrome, right upper limb G25.81 Restless legs syndrome G25.3 Myoclonus Office Visit 02/19/2015 1:30p [facility] Rachel Mendoza G56.01 Carpal tunnel Services [facility] [place] syndrome, right upper limb G20 Parkinson's disease G25.81 Restless legs syndrome G25.3 Myoclonus Office Visit 01/23/2015 [place] Rachel Mendoza, G56.01 Carpal tunnel 1:00p Neurolog[facility] Serv Of [place] syndrome, right [facility] upper limb G20 Parkinson's disease Office Visit 10/17/2014 [place] Rachel Mendoza, 332.0 Paralysis 11:00a [facility] Of [facility] 346.00 Migraine Classical W/O Intractable W/O Status Migrainosus 333.94 Restless Leg Syndrome V49.3 Sensory Problem Limbs Office Visit 08/16/2014 10:15a [facility] [place], 812.21 FX Humerus Services [facility] Ann.Aniceto [facility] Closed [facility] [place] Office Visit 07/19/2014 9:45a [facility] [place] 812.21 FX Humerus Services [facility] M.DMedhat [facility] Closed AT [place] Office Visit 06/28/2014 10:00a [facility] [place] 812.21 FX Humerus Services [facility] M.DMedhat [facility] Closed AT [place] Plan of Treatment Future Appointment(s):07/06/2018 1:30 pm - Rachel Mendoza M.D. at [facility] Neurologic Serv Of [facility]01/05/2018 - Rachel Mendoza M.D.G20 Parkinson's diseaseComments:Your parkinson's symptoms are stable.Regarding issues of right leg swelling and joint pain, I defer this to primary care as it is not a neurologic diagnosis.Follow up:6 MONTHS (30 min)Recommendations:Please ensure patient is getting Sinemet CR 50/200 one tablet three times a day. This [facility] not [facility]. Please make sure copies of primary care notes are forwarded to me, as I need to be kept up to date on overall medical conditions.G25.81 Restless legs [id number] MyoclonusNew Labs: CBC Auto Diff, Ordered: 01/05/18Liver Function Panel, Ordered: 01/05/18
[2018-01-13 12:36] LABS: ABS Basophils 0 10^3/ul (0-0.2); ABS Eosinophils 0.4 10^3/ul (0-0.6); ABS Lymphocytes 0.9 10^3/ul (1.0-4.8); ABS Monocytes 0.8 10^3/ul (0-0.8); ABS Neutrophils 14.3 10^3/ul (1.5-7.7); ABS Nucleated RBC 0 10^3/ul; Eosinophil % 2.3 %; Hematocrit 35 % (35-47); Hemoglobin 11.3 g/dl (12.0-16.0); Lymphocyte % 5.7 %; Mean Corpuscular HGB Conc 33 g/dl (31-36); Mean Corpuscular Hemoglobin 28 pg (27-31); Mean Corpuscular Volume 85 fL (80-97); Mean Platelet Volume 8.3 fL (7.4-10.4); Nucleated Red Blood Cells % 0; Platelet Count 211 10^3/ul (150-450); Red Blood Count 4.09 10^6/ul (4.00-5.40); Red Cell Distribution Width 17 % (10.5-15); White Blood Count 16.5 10^3/ul (3.5-10.8)
[2018-01-13 12:46] LABS: INR 1.13 (0.77-1.02)
[2018-01-13 12:56] LABS: EGFR Non-African American 22.7 (>60)
[2018-01-13] MEDS ORDERED: fentaNYL* 50 MCG/ML 2 ML VIAL (100 MCG VIAL) IV SLOW PU ONE (13:03)
[2018-01-13] MEDS ORDERED: fentaNYL* 50 MCG/ML 2 ML VIAL (100 MCG VIAL) ONE (13:05)
[2018-01-13] MEDS ORDERED: Cefepime 2 GM in Dextrose(*) 2 GM/50 ML BAG IV ONE (13:24)
[2018-01-13] MEDS ORDERED: Ciprofloxacin 400MG IVPREMIX(* 400 MG/200 ML BAG IVPB ONE (13:24)
[2018-01-13] MEDS ORDERED: methylPREDNISolone 125 MG* 2 ML VIAL IV ONE (14:10)
[2018-01-13] MEDS ORDERED: Albuterol/Ipratropium NEB.SOL* Albuterol 2.5 MG/Ipratropium 0.5 MG 3 ML INH ONE (14:10)
[2018-01-13] MEDS ORDERED: Furosemide IV* 10 MG/ML 2 ML VIAL (20 MG) IV SLOW PU ONE (14:10)
[2018-01-13] MEDS ORDERED: Enoxaparin(*) 80 MG/0.8 ML SYR SUBCUT ONE (14:19)
[2018-01-13] MEDS ORDERED: Acetaminophen TAB* 325 MG PO PRN (14:53)
[2018-01-13] MEDS ORDERED: Ondansetron INJ* 2 MG/ML VIAL IV PRN (14:53)
[2018-01-13] MEDS ORDERED: Nitroglycerin TAB 0.4 MG* 0.4 MG TAB SL PRN (14:58)
[2018-01-13 15:54] LABS: Urine Appearance Cloudy; Urine Blood 2+ (Negative); Urine Color Yellow; Urine Ketones Negative (Negative); Urine Protein 2+(100 mg/dL) (Negative); Urine Red Blood Cell 1+(3-5/hpf) (Absent); Urine Specific Gravity 1.016 (1.010-1.030); Urine Urobilinogen Negative (Negative); Urine White Blood Cell 2+(11-20/hpf) (Absent)
[2018-01-13] MEDS ORDERED: Vancomycin per Pharmacy* NOTE FOLLOW UP SCH (16:00)
[2018-01-13] MEDS ORDERED: Vancomycin(*) 1,250 MG in NS 0.9% 250 ML* 250 ML IVPB ONE (17:00)
[2018-01-13] MEDS: Aspirin 81 mg CHEW TAB* 81 MG TAB.CHEW PO SCH (17:56)
[2018-01-13] MEDS: traMADol TAB* 50 MG PO SCH ×2 (17:56→20:43)
[2018-01-13] MEDS: Atorvastatin* 40 MG TAB PO SCH (17:56)
[2018-01-13] MEDS: Carbidopa/Levodop CR 50/200(*) TAB.CR PO SCH (17:57)
[2018-01-13] MEDS ORDERED: Allopurinol TAB* 300 MG PO SCH (18:00)
[2018-01-13] MEDS: Allopurinol TAB* 100 MG PO SCH (18:09)
[2018-01-13] MEDS: fentaNYL Patch Check Q Shift 1 NOTE FOLLOW UP SCH (19:03)
[2018-01-13] MEDS ORDERED: Dextrose 50% Syringe 50 ML* 25 GM/50 ML SYRINGE IV PUSH PRN ×2 (19:12→23:48)
[2018-01-13] MEDS: Magnesium Oxide TAB* 400 MG PO SCH (20:43)
[2018-01-13] MEDS: Heparin VIAL(*) 5000 UNITS/ML VIAL (FIVE THOUSAND) SUBCUT SCH (20:45)
[2018-01-13] MEDS: busPIRone TAB* 10 MG PO SCH (20:45)
[2018-01-13] MEDS: Latanoprost 0.005%* 2.5 ml BTL BOTH EYES SCH (20:45)
[2018-01-13] MEDS: Insulin GLARGINE(*) 1 UNITS UNIT SUBCUT SCH (21:20)
[2018-01-13] MEDS ORDERED: Insulin LISPRO* 1 UNITS UNIT SUBCUT ONE (23:48)
[2018-01-14] MEDS: Nystatin TOP POWDER* 15 GM BTL TOPICAL SCH ×3 (00:12→21:55)
--- NOTE | 2018-01-14 00:27 | HP ---
CC: [facility].* HISTORY AND PHYSICAL: DATE OF ADMISSION: 01/13/18 PRIMARY CARE PROVIDER: [facility]. ATTENDING PHYSICIAN WHILE IN THE HOSPITAL: Arianne Gómez DO * (dictated by Melissa Paredes NP). CHIEF COMPLAINT: 1. Shortness of breath. 2. Cough. HISTORY OF PRESENT ILLNESS: Ms. Peck is an 87-year-old female who carries a past medical history significant for diabetes, depression, anxiety, gout, chronic kidney disease, hypothyroidism, Parkinson's disease, peripheral vascular disease and history of GERD. She presented to the emergency room today from [facility] reporting an increased shortness of breath and cough since Thursday, productive cough with yellow sputum and lower suprapubic abdominal pain as well as right lower leg pain. The patient reports that she has had this chronic right lower leg pain since this progressively gotten worse over the past several months. She was recently seen by her neurologist and told this is not associated with her Parkinson's disease, but due to the severe pain in her right lower extremity, she wanted to come to the emergency room for further evaluation. While in the emergency room, she had a venous Doppler of the right lower leg that was negative for DVT. The patient also has congestive cough and was found to be hypoxic and generally is on room air and is unable to maintain O2 saturations on room air. Her O2 saturation on 3 L was 86%. She was placed on facemask at 10 L and able to maintain O2 saturations above 95%. Given her shortness of breath and cough and hypoxia, we were asked to see and evaluate her for admission. PAST MEDICAL HISTORY: Significant for: 1. Diabetes. 2. Depression. 3. Anxiety. 4. Gout. 5. Chronic kidney disease. 6. Hypothyroidism. 7. Parkinson's disease. 8. Restless leg syndrome. 9. Peripheral vascular disease. 10. GERD. PAST SURGICAL HISTORY: 1. Colostomy. 2. Hysterectomy. 3. Lumbar spine surgery. 4. Knee and shoulder arthroscopy. 5. Appendectomy. 6. Carpal tunnel surgery. HOME MEDICATIONS: Include: 1. Milk of magnesia 130 mL as needed for constipation. 2. Glycerin suppository CO p.r.n. constipation. 3. Mirapex 1.5 mg p.o. t.i.d. 4. Sinemet 1 tablet p.o. at 1800, 1300, and 1700. 5. Albuterol sulfate 1 hand inhale p.o. t.i.d. 6. Guaifenesin 1 tab b.i.d. 7. Meclizine 25 mg p.o. q.8 hours. 8. Doxycycline 1 cap p.o. b.i.d. 9. Sertraline 100 mg p.o. daily. 10. Nitroglycerin 0.4 mg sublingual q.5 minutes as needed for chest pain. 11. Lactobacillus 1 cap p.o. daily. 12. Multivitamin with minerals 1 tablet p.o. daily. 13. Lisinopril 10 units subcu a.c. 14. MiraLAX 17 g p.o. every other day. 15. Metoprolol 12.5 mg p.o. q.a.m. 16. Isosorbide mononitrate 60 mg p.o. daily. 17. Lantus 70 units subcu daily. 18. Tramadol 50 units p.o. q.4 hours. 19. BuSpar 10 mg p.o. b.i.d. 20. Alprazolam 0.25 mg p.o. at bedtime p.r.n. sleep. 21. Tylenol 650 mg p.o. q.4 hours as needed. 22. Senna 1 tab p.o. daily. 23. Latanoprost 0.005% 1 drop to both eyes at bedtime. 24. Fentanyl Duragesic patch 12 mcg q.72 hours. 25. Gabapentin 200 mg p.o. t.i.d. 26. Levothyroxine 125 mcg p.o. q.a.m. 27. Vitamin D 2000 units q.a.m. 28. Lipitor 40 mg p.o. q.p.m. 29. Allopurinol 300 mg p.o. q.p.m. 30. Depakote ER 250 mg p.o. daily. 31. Aspirin 81 mg p.o. daily. 32. Magnesium oxide 400 mg p.o. daily. ALLERGIES: SULFA, CODEINE, and LATEX. FAMILY HISTORY: Mother with a history of diabetes and stomach cancer. Father with history of an NC. SOCIAL HISTORY: She does not smoke. She does not drink. Surrogate decision maker is her friend, Maria Del Carmen Sheldon, her phone number is [phone]. She resides at [facility]. REVIEW OF SYSTEMS: There was reported fevers yesterday. The patient has had decreased appetite. She initially reported some rhinorrhea and cough that started on Thursday that has progressively gotten worse, now with shortness of breath. She does report the cough is productive with the yellow secretions. Denies any chest pain. She does report suprapubic abdominal pain and some nausea. Denies any vomiting. She denies any dysuria or urinary frequency. No seizures. No loss of consciousness. She denies any dizziness. A review of 14 systems was completed, all others were negative. PHYSICAL EXAMINATION GENERAL: At this time, Ms. Peck is an 87-year-old female. She is sitting on the stretcher in the emergency room. She is hard of hearing. She does not appear to be in any acute distress. She does have a moist congestive cough. VITAL SIGNS: Blood pressure is 112/64, heart rate is 69, respirations 22, O2 saturation on 3 L was 86%. She was changed to facemask and O2 saturation improved to 92% to 95% on 10 L. Temperature was 98.4. HEENT: Head is atraumatic, normocephalic. Eyes: EOMs are intact. Sclerae anicteric, not pale. Oral mucosa appears to be dry. There is no oropharyngeal erythema. NECK: Supple. LUNGS: Diminished bilaterally. There are no wheezes, rales or rhonchi. CARDIAC: S1 and S2. Regular rate and rhythm. No murmurs, rubs or gallops. ABDOMEN: Soft and nontender. She does have a colostomy to her left lower quadrant. Bowel sounds are present x4. She does have suprapubic tenderness with palpation. Denies any CVA tenderness bilaterally. EXTREMITIES: Pulses are +2 bilaterally. There is no redness or swelling to the lower extremities. She does report that the pain to her right lower extremity has improved since admission. Pedal pulses are +2 bilaterally. NEUROLOGIC: She is awake, alert and oriented x3. Speech is clear. There are no gross obvious focal deficits. SKIN: Intact. There is no edema to the lower extremities. There are no open wounds. She does have some erythema to the skin folds on the abdomen. LABORATORY DATA AND DIAGNOSTIC STUDIES: WBCs were 16.5, RBCs 4.08, hemoglobin was 11.3, hematocrit was 35, platelet count was 211. INR was 1.13, APTT was 39.9, D- dimer was 424. Sodium 140, potassium 4.5, chloride 105, carbon dioxide 26, anion gap was 9, BUN was 46, creatinine 2.07, glucose was 84, lactic acid was 0.7, calcium 9.4, magnesium 2.4. ASTs were 60, ALTs were 9, alkaline phosphatase was 96, troponin was 0.05 x2. BNP was 61. Urine is yellow and cloudy, pH is 5, specific gravity is 1.016, urine protein is 2+, urine ketones is negative, blood is 2+, urine nitrites are negative, bilirubin is negative, urobilinogen was negative and leukocyte esterase is 1+, wbc's are 2 +, RBC's are 1+, urine squamous epithelial cells are present, bacteria is 1+, glucose is negative, ascorbic acid is . The patient had a chest x-ray and radiologist's impression: Cardiomegaly, COPD , pulmonary vascular congestion. She had a venous Doppler of the right lower extremity, which was negative for DVT. She had a VQ scan of the lungs. No evidence of pulmonary embolism, negative exam. ASSESSMENT AND PLAN: Ms. Peck is an 87-year-old female patient who presented to the emergency room today with initial complaint of right lower leg pain, cough, and shortness of breath. We were asked to see and evaluate her for admission. She will be admitted inpatient for: 1. Shortness of breath. I suspect pneumonia. The patient will be continued on IV antibiotics, cefepime, and vancomycin as she does have a history of methicillin- resistant Staphylococcus aureus. The patient has a productive cough with thick secretions. Preliminary reading on the sputum culture is 3+ gram-negative coccobacilli and 1+ gram-positive cocci, as well 4+ neutrophils. At this time, I am going to hold on hydration as the patient's original chest x- ray does show possible vascular congestion. The patient does appear to be dry at this time, so I will hold on diuretics as well and may consider giving a small dose of IV fluids. We will continue nebulizer treatments as needed. She did receive Solu-Medrol in the emergency room 125 mg. We will continue oxygen support as needed to maintain O2 saturation greater than 92%. 2. Elevated troponins. The patient's troponin is 0.05. I suspect this is related to demand ischemia from her pneumonia. At this point, the patient does not want any further workup of her elevated troponins. She does not want a stress test. The patient reports that if the stress test was positive, she would not want to pursue cardiac catheterization. At this point, we will continue with maximum medical management. We will continue her on her beta josh, aspirin, nitrates, Imdur, and statin therapy. 3. Diabetes. We will continue on lispro sliding scale and Lantus. 4. Depression, anxiety. We will continue supportive care. 5. Chronic kidney disease. BUN and creatinine at her baseline they are elevated. She does have chronic kidney disease stage 5. We will continue to limit nephrotoxic medications. 6. DVT prophylaxis. She is at high risk. She will be placed on heparin subcu. 7. Code status. She is a DNR. There is a MOLST form in the chart. She is only wishing for comfort measures. She is a DNR/DNI. The MOLST form was updated with the patient today and her power of assistant attorney general. 8. Fluids, electrolytes, and nutrition. She can have a consistent carb, heart healthy diet. TIME SPENT: Time spent on this admission was 60 minutes, greater than half the time was spent [id number] with the patient obtaining my history and physical, the other half time was spent going over my plan of care and implementing my plan of care. I have discussed this with my attending, Dr. Arianne Gómez, and she is in agreement with my plan. RUDY, [employer] [id number]/CPS #: [id number] LINDA
[2018-01-14] MEDS ORDERED: Dextrose 50% Syringe 50 ML* 25 GM/50 ML SYRINGE IV PUSH PRN (01:57)
[2018-01-14] MEDS ORDERED: Insulin LISPRO* 1 UNITS UNIT SUBCUT ONE (02:08)
[2018-01-14] MEDS: Albuterol HFA INHALER* 8 gm MDI INH SCH ×3 (02:33→14:03)
[2018-01-14] MEDS: Insulin LISPRO* 1 UNITS UNIT SUBCUT SCH ×7 (02:33→18:17)
[2018-01-14] MEDS: Heparin VIAL(*) 5000 UNITS/ML VIAL (FIVE THOUSAND) SUBCUT SCH ×3 (05:13→21:55)
[2018-01-14] MEDS: Levothyroxine TAB* 125 MCG TAB PO SCH (05:13)
[2018-01-14 06:52] LABS: Hematocrit 35 % (35-47); Hemoglobin 11.3 g/dl (12.0-16.0); Mean Corpuscular HGB Conc 32 g/dl (31-36); Mean Corpuscular Hemoglobin 27 pg (27-31); Mean Corpuscular Volume 85 fL (80-97); Mean Platelet Volume 8.5 fL (7.4-10.4); Platelet Count 220 10^3/ul (150-450); Red Blood Count 4.17 10^6/ul (4.00-5.40); Red Cell Distribution Width 17 % (10.5-15); White Blood Count 20.4 10^3/ul (3.5-10.8)
[2018-01-14] MEDS: fentaNYL Patch Check Q Shift 1 NOTE FOLLOW UP SCH ×2 (06:55→18:47)
[2018-01-14 07:12] LABS: EGFR Non-African American 27.9 (>60)
[2018-01-14 08:24] LABS: ABS Basophils 0 10^3/ul (0-0.2); ABS Eosinophils 0 10^3/ul (0-0.6); ABS Lymphocytes 0.6 10^3/ul (1.0-4.8); ABS Monocytes 0.3 10^3/ul (0-0.8); ABS Neutrophils 19.5 10^3/ul (1.5-7.7); ABS Nucleated RBC 0 10^3/ul; Eosinophil % 0 %; Lymphocyte % 2.7 %; Nucleated Red Blood Cells % 0
[2018-01-14] MEDS: Magnesium Oxide TAB* 400 MG PO SCH ×2 (08:24→20:30)
[2018-01-14] MEDS: Carbidopa/Levodop CR 50/200(*) TAB.CR PO SCH ×3 (08:25→18:47)
[2018-01-14] MEDS: busPIRone TAB* 10 MG PO SCH ×2 (08:26→20:30)
[2018-01-14] MEDS: Divalproex ER TAB(*) 250 MG PO SCH (08:28)
[2018-01-14] MEDS: Cholecalciferol TAB* 1000 UNITS PO SCH (08:28)
[2018-01-14] MEDS: Gabapentin CAP(*) 100 MG PO SCH (08:29)
[2018-01-14] MEDS: Isosorbide Mononitrate ER TAB* 60 MG PO SCH (08:33)
[2018-01-14] MEDS: Metoprolol Succinate XL TAB* 25 MG PO SCH (08:34)
[2018-01-14] MEDS: Pramipexole TAB* 0.5 MG PO SCH (08:34)
[2018-01-14] MEDS: Sertraline* 100 MG TAB PO SCH (08:35)
[2018-01-14] MEDS: traMADol TAB* 50 MG PO SCH ×2 (08:36→20:30)
[2018-01-14] MEDS: ALPRAZolam TAB* 0.25 MG PO PRN (09:30)
[2018-01-14] MEDS: Multivitamins/Minerals TAB PO SCH (10:49)
[2018-01-14] MEDS: cefTRIAXone(*) 1 GM in NS 0.9% 50 ML* 50 ML IVPB SCH (12:55)
[2018-01-14] MEDS ORDERED: Cefepime 1 GM in Dextrose(*) 1 GM/50 ML BAG IV SCH (13:30)
--- NOTE | 2018-01-14 14:45 | PN ---
Subjective Date of Service: 01/14/18 Interval History: Patient is still feeling generally poorly. Patient states her SOB is minor. Patient denies F/C, N/V, abdominal pain, diarrhea, CP, dysuria. Patient denies coughing after eating. Patient has no history of pneumonia she knows of. Patient is fixated on her perceived poor treatment at [facility]. Patient is not able to provide much pertinent history to her condition. Unable to contact family members. Family History: Unchanged from Admission Social History: Unchanged from Admission Past Medical History: Unchanged from Admission Objective Active Medications: Acetaminophen (Tylenol Tab*) 650 mg PO Q4H PRN PRN Reason: FEVER/PAIN Albuterol (Ventolin Hfa Inhaler*) 1 puff INH TID [facility] Last Admin: 01/14/18 13:38 Dose: Not Given Allopurinol (Zyloprim Tab*) 200 mg PO QPM [facility] Last Admin: 01/13/18 18:09 Dose: 200 mg Alprazolam (Xanax Tab*) 0.25 mg PO BEDTIME PRN PRN Reason: ANXIETY Last Admin: 01/14/18 09:30 Dose: 0.25 mg Aspirin (Aspirin 81 Mg Chew Tab*) 81 mg PO QPM [facility] Last Admin: 01/13/18 17:56 Dose: 81 mg Atorvastatin Calcium (Lipitor*) 40 mg PO QPM [facility] Last Admin: 01/13/18 17:56 Dose: 40 mg Buspirone HCl (Buspar Tab*) 10 mg PO BID [facility] Last Admin: 01/14/18 08:26 Dose: 10 mg Carbidopa/Levodopa (Sinemet Cr 50/200(*)) 1 tab.cr PO 0800,1300,1800 [facility] Last Admin: 01/14/18 14:29 Dose: 1 tab.cr Cholecalciferol (Vitamin D Tab*) 2,000 units PO QAM [facility] Last Admin: 01/14/18 08:28 Dose: 2,000 units Dextrose (D50w Syringe 50 Ml*) 12.5 gm IV PUSH .FOR FS < 60 - SS PRN PRN Reason: FS < 60 Divalproex Sodium (Depakote Er Tab(*)) 250 mg PO DAILY [facility] Last Admin: 01/14/18 08:28 Dose: 250 mg Fentanyl (Duragesic Patch 12 Mcg/Hr *) 12 mcg TRANSDERM Q72HR [facility] Gabapentin (Neurontin Cap(*)) 200 mg PO DAILY [facility] Last Admin: 01/14/18 08:29 Dose: 200 mg Heparin Sodium (Porcine) (Heparin Vial(*)) 5,000 units SUBCUT Q8HR [facility] Last Admin: 01/14/18 14:29 Dose: 5,000 units Vancomycin HCl 1,250 mg/ (Sodium Chloride) 250 mls @ 166.667 mls/hr IVPB Q24H [facility] Lactated Ringer's (Lactated Ringers 1000 Ml Bag*) 1,000 mls @ 75 mls/hr IV PER RATE [facility] Last Admin: 01/14/18 10:08 Dose: 75 mls/hr Ceftriaxone Sodium 1 gm/ (Sodium Chloride) 50 mls @ 200 mls/hr IVPB Q24H [facility] Last Admin: 01/14/18 12:55 Dose: 200 mls/hr Insulin Glargine (Lantus(*)) 40 units SUBCUT Q24H [facility] Last Admin: 01/13/18 21:20 Dose: 40 units Insulin Human Lispro (Humalog*) 0 units SUBCUT AC [facility]; Protocol Last Admin: 01/14/18 12:55 Dose: 6 units Insulin Human Lispro (Humalog*) 10 units SUBCUT AC [facility] Last Admin: 01/14/18 12:54 Dose: 10 units Isosorbide Mononitrate (Imdur Er Tab*) 60 mg PO DAILY [facility] Last Admin: 01/14/18 08:33 Dose: 60 mg Latanoprost (Xalatan 0.005%*) 1 drop BOTH EYES BEDTIME [facility] Last Admin: 01/13/18 20:45 Dose: 1 drop Levothyroxine Sodium (Synthroid Tab*) 125 mcg PO DAILY@0600 [facility] Last Admin: 01/14/18 05:13 Dose: 125 mcg Magnesium Oxide (Magox 400 Tab*) 400 mg PO Q12H [facility] Last Admin: 01/14/18 08:24 Dose: 400 mg Metoprolol Succinate (Toprol Xl Tab*) 12.5 mg PO QAM [facility] Last Admin: 01/14/18 08:34 Dose: 12.5 mg Multivitamins/Minerals (Theragran/Minerals Tab*) 1 tab PO DAILY@1000 [facility] Last Admin: 01/14/18 10:49 Dose: 1 tab Nitroglycerin (Nitroglycerin Tab 0.4 Mg*) 0.4 mg SL Q5M PRN PRN Reason: ANGINA Nystatin (Nystatin Top Powder*) 1 applic TOPICAL BID [facility] Last Admin: 01/14/18 09:51 Dose: Not Given Ondansetron HCl (Zofran Inj*) 4 mg IV Q4H PRN PRN Reason: NAUSEA/VOMITING Pharmacy Consult (Vancomycin Per Pharmacy*) 1 note FOLLOW UP .VANC PER PHARMACY [facility] Pharmacy Profile Note (Fentanyl Patch Check Q Shift) 1 note FOLLOW UP 0700, 1900 [facility] Last Admin: 01/14/18 06:55 Dose: 1 note Pharmacy Profile Note (Vancomycin Trough Check) 1 note FOLLOW UP 1630 ONE Stop: 01/16/18 16:31 Polyethylene Glycol/Electrolytes (Miralax*) 17 gm PO EVERY OTHER DAY [facility] Pramipexole Dihydrochloride (Mirapex Tab*) 1.5 mg PO DAILY [facility] Last Admin: 01/14/18 08:34 Dose: 1.5 mg Sertraline HCl (Zoloft*) 100 mg PO DAILY [facility] Last Admin: 01/14/18 08:35 Dose: 100 mg Tramadol HCl (Ultram*) 50 mg PO Q12HR [facility] Last Admin: 01/14/18 08:36 Dose: 50 mg Vital Signs - 8 hr 01/14/18 01/14/18 01/14/18 08:00 08:29 08:36 Temperature Pulse Rate Respiratory 16 18 18 Rate Blood Pressure (mmHg) O2 Sat by Pulse 95 Oximetry 01/14/18 01/14/18 01/14/18 09:30 10:56 11:00 Temperature 97.9 F Pulse Rate 58 Respiratory 18 18 16 Rate Blood Pressure 114/47 (mmHg) O2 Sat by Pulse 95 Oximetry Oxygen Devices in Use Now: Nasal Cannula Appearance: Patient is an 87yo female who appears stated age and is sitting in the bed in [facility]. Eyes: No Scleral Icterus, PERRLA Ears/Nose/Mouth/Throat: NL Teeth, Lips, Gums, Clear Oropharnyx, Mucous Membranes Moist Neck: NL Appearance and Movements; NL JVP, Trachea Midline Respiratory: Symmetrical Chest Expansion and Respiratory Effort, - - Diminished. Cardiovascular: NL Sounds; No Murmurs; No JVD, RRR, No Edema Abdominal: NL Sounds; No Tenderness; No Distention, No Hepatosplenomegaly Lymphatic: No Cervical Adenopathy Extremities: No Edema, No Clubbing, Cyanosis Skin: No Rash or Ulcers, No Nodules or Sclerosis Neurological: - - Rigidity and mask like facies. Will not answer orientation questions. Result Diagrams: 01/14/18 06:44 01/14/18 06:44 Microbiology and Other Data: Microbiology 01/13/18 12:26 Aerobic Blood Culture - Preliminary Blood Venous No Growth Day 1 Anaerobic Blood Culture - Preliminary No Growth Day 1 01/13/18 12:15 Aerobic Blood Culture - Preliminary Blood Venous No Growth Day 1 Anaerobic Blood Culture - Preliminary No Growth Day 1 01/13/18 15:30 Gram Stain - Final Sputum Assess/Plan/Problems-Billing Assessment: Patient is an 87yo female with a history of Parkinson's disease, DM, CKD, CKD, PVD who presents with SOB and hypoxia who likely has pneumonia and is improving on IV antibiotics. - Patient Problems (1) Pneumonia Current Visit: Yes Status: Acute Code(s): J18.9 - PNEUMONIA, UNSPECIFIED ORGANISM SNOMED Code(s): 324433616 Comment: - Likely aspiration pneumonia, Sputum culture pending - History of MRSA, continue Ceftriaxone and Vancomycin - Hypoxia improving. - Supportive care and aggressive pulmonary toilet. (2) Acute respiratory failure with hypoxia Current Visit: Yes Status: Acute Code(s): J96.01 - ACUTE RESPIRATORY FAILURE WITH HYPOXIA SNOMED Code(s): 47624920 Comment: - Due to pneumonia. Needing up to 10L O2 - Improving (3) CKD (chronic kidney disease) stage 3, GFR 30-59 ml/min Current Visit: No Status: Acute Code(s): N18.3 - CHRONIC KIDNEY DISEASE, STAGE 3 (MODERATE) SNOMED Code(s): 680433896 Comment: - Cret 1.73, Near baseline - Monitor while on Antibiotics (4) Parkinson disease Current Visit: No Status: Acute Code(s): G20 - PARKINSON'S DISEASE SNOMED Code(s): 59219933 Comment: - Continue sinemet and pramiprexole at home doses. (5) Diabetes Current Visit: No Status: Acute Code(s): E11.9 - TYPE 2 DIABETES MELLITUS WITHOUT COMPLICATIONS SNOMED Code(s): 08614087 Comment: - Continue Lantus, scheduled insulin and SS Lispro. - Adjust scheduled insulin as needed - Relatively poor control. (6) DVT prophylaxis Current Visit: No Status: Acute Code(s): PHL1228 - SNOMED Code(s): 244832090 Comment: - Heparin SubQ. Status and Disposition: Inpatient for severe pneumonia.
[2018-01-14] MEDS: Atorvastatin* 40 MG TAB PO SCH (18:17)
[2018-01-14] MEDS: Vancomycin(*) 1,250 MG in NS 0.9% 250 ML* 250 ML IVPB SCH (18:17)
[2018-01-14] MEDS: Allopurinol TAB* 100 MG PO SCH (18:17)
[2018-01-14] MEDS: Aspirin 81 mg CHEW TAB* 81 MG TAB.CHEW PO SCH (18:18)
[2018-01-14] MEDS: Latanoprost 0.005%* 2.5 ml BTL BOTH EYES SCH (21:54)
[2018-01-14] MEDS: Insulin GLARGINE(*) 1 UNITS UNIT SUBCUT SCH (21:55)
[2018-01-15] MEDS: Heparin VIAL(*) 5000 UNITS/ML VIAL (FIVE THOUSAND) SUBCUT SCH ×3 (05:39→20:13)
[2018-01-15] MEDS: Levothyroxine TAB* 125 MCG TAB PO SCH (05:39)
[2018-01-15 05:41] LABS: ABS Basophils 0 10^3/ul (0-0.2); ABS Eosinophils 0.1 10^3/ul (0-0.6); ABS Lymphocytes 1.4 10^3/ul (1.0-4.8); ABS Neutrophils 16.4 10^3/ul (1.5-7.7); ABS Nucleated RBC 0 10^3/ul; Eosinophil % 0.4 %; Hematocrit 35 % (35-47); Hemoglobin 11.3 g/dl (12.0-16.0); Lymphocyte % 7.3 %; Mean Corpuscular HGB Conc 32 g/dl (31-36); Mean Corpuscular Hemoglobin 27 pg (27-31); Mean Corpuscular Volume 85 fL (80-97); Mean Platelet Volume 8.1 fL (7.4-10.4); Nucleated Red Blood Cells % 0.1; Platelet Count 247 10^3/ul (150-450); Red Blood Count 4.19 10^6/ul (4.00-5.40); Red Cell Distribution Width 17 % (10.5-15); White Blood Count 18.9 10^3/ul (3.5-10.8)
[2018-01-15 06:10] LABS: EGFR Non-African American 34.8 (>60)
[2018-01-15] MEDS: Albuterol HFA INHALER* 8 gm MDI INH SCH ×3 (07:18→15:16)
[2018-01-15] MEDS: fentaNYL Patch Check Q Shift 1 NOTE FOLLOW UP SCH ×2 (07:21→19:08)
[2018-01-15] MEDS ORDERED: Polyethylene Glycol 3350* 17 GM PACKET PO SCH (09:00)
[2018-01-15] MEDS: Pramipexole TAB* 0.5 MG PO SCH (09:25)
[2018-01-15] MEDS: Cholecalciferol TAB* 1000 UNITS PO SCH (09:26)
[2018-01-15] MEDS: Magnesium Oxide TAB* 400 MG PO SCH ×2 (09:26→20:13)
[2018-01-15] MEDS: Gabapentin CAP(*) 100 MG PO SCH (09:27)
[2018-01-15] MEDS: Isosorbide Mononitrate ER TAB* 60 MG PO SCH (09:28)
[2018-01-15] MEDS: traMADol TAB* 50 MG PO SCH ×2 (09:28→20:12)
[2018-01-15] MEDS: Sertraline* 100 MG TAB PO SCH (09:28)
[2018-01-15] MEDS: Metoprolol Succinate XL TAB* 25 MG PO SCH (09:28)
[2018-01-15] MEDS: Multivitamins/Minerals TAB PO SCH (09:28)
[2018-01-15] MEDS: busPIRone TAB* 10 MG PO SCH ×2 (09:28→20:13)
[2018-01-15] MEDS: Insulin LISPRO* 1 UNITS UNIT SUBCUT SCH ×6 (09:30→17:53)
[2018-01-15] MEDS: Nystatin TOP POWDER* 15 GM BTL TOPICAL SCH ×2 (09:30→23:38)
[2018-01-15] MEDS: Divalproex ER TAB(*) 250 MG PO SCH (09:34)
[2018-01-15] MEDS: Carbidopa/Levodop CR 50/200(*) TAB.CR PO SCH ×3 (09:34→17:52)
[2018-01-15] MEDS: cefTRIAXone(*) 1 GM in NS 0.9% 50 ML* 50 ML IVPB SCH (10:51)
--- NOTE | 2018-01-15 12:21 | PN ---
Subjective Date of Service: 01/15/18 Interval History: Patient feels better but continues to be confused. Patient denies F/C, N/V, patient has no change in baseline abdominal pain, patient denies dysuria, frequency, diarrhea, Feelings of contipation. Patient thinks she is in [place] and keeps talking about people coming to talk to her that haven't been to see her. Discussed at length with patient's POA that she is usually much more alert than this but that she has been getting more paranoid recently. Family History: Unchanged from Admission Social History: Unchanged from Admission Past Medical History: Unchanged from Admission Objective Active Medications: Acetaminophen (Tylenol Tab*) 650 mg PO Q4H PRN PRN Reason: FEVER/PAIN Albuterol (Ventolin Hfa Inhaler*) 1 puff INH TID [facility] Last Admin: 01/15/18 10:42 Dose: Not Given Allopurinol (Zyloprim Tab*) 200 mg PO QPM [facility] Last Admin: 01/14/18 18:17 Dose: 200 mg Alprazolam (Xanax Tab*) 0.25 mg PO BEDTIME PRN PRN Reason: ANXIETY Last Admin: 01/14/18 09:30 Dose: 0.25 mg Aspirin (Aspirin 81 Mg Chew Tab*) 81 mg PO QPM [facility] Last Admin: 01/14/18 18:18 Dose: 81 mg Atorvastatin Calcium (Lipitor*) 40 mg PO QPM [facility] Last Admin: 01/14/18 18:17 Dose: 40 mg Buspirone HCl (Buspar Tab*) 10 mg PO BID [facility] Last Admin: 01/15/18 09:28 Dose: 10 mg Carbidopa/Levodopa (Sinemet Cr 50/200(*)) 1 tab.cr PO 0800,1300,1800 [facility] Last Admin: 01/15/18 09:34 Dose: 1 tab.cr Cholecalciferol (Vitamin D Tab*) 2,000 units PO QAM [facility] Last Admin: 01/15/18 09:26 Dose: 2,000 units Dextrose (D50w Syringe 50 Ml*) 12.5 gm IV PUSH .FOR FS < 60 - SS PRN PRN Reason: FS < 60 Divalproex Sodium (Depakote Er Tab(*)) 250 mg PO DAILY [facility] Last Admin: 01/15/18 09:34 Dose: 250 mg Docusate Sodium (Colace Cap*) 200 mg PO BID [facility] Fentanyl (Duragesic Patch 12 Mcg/Hr *) 12 mcg TRANSDERM Q72HR [facility] Gabapentin (Neurontin Cap(*)) 200 mg PO DAILY [facility] Last Admin: 01/15/18 09:27 Dose: 200 mg Heparin Sodium (Porcine) (Heparin Vial(*)) 5,000 units SUBCUT Q8HR [facility] Last Admin: 01/15/18 05:39 Dose: 5,000 units Vancomycin HCl 1,250 mg/ (Sodium Chloride) 250 mls @ 166.667 mls/hr IVPB Q24H [facility] Last Admin: 01/14/18 18:17 Dose: 166.667 mls/hr Lactated Ringer's (Lactated Ringers 1000 Ml Bag*) 1,000 mls @ 75 mls/hr IV PER RATE [facility] Last Admin: 01/14/18 10:08 Dose: 75 mls/hr Cefepime HCl (Maxipime 1 Gm In Dextrose Duplex (*)) 1 gm in 50 mls @ 100 mls/ hr IV Q12H [facility] Insulin Glargine (Lantus(*)) 50 units SUBCUT Q24H [facility] Insulin Human Lispro (Humalog*) 0 units SUBCUT AC [facility]; Protocol Last Admin: 01/15/18 09:30 Dose: 4 units Insulin Human Lispro (Humalog*) 15 units SUBCUT AC [facility] Last Admin: 01/15/18 09:30 Dose: 15 units Isosorbide Mononitrate (Imdur Er Tab*) 60 mg PO DAILY [facility] Last Admin: 01/15/18 09:28 Dose: 60 mg Latanoprost (Xalatan 0.005%*) 1 drop BOTH EYES BEDTIME [facility] Last Admin: 01/14/18 21:54 Dose: 1 drop Levothyroxine Sodium (Synthroid Tab*) 125 mcg PO DAILY@0600 [facility] Last Admin: 01/15/18 05:39 Dose: 125 mcg Magnesium Oxide (Magox 400 Tab*) 400 mg PO Q12H [facility] Last Admin: 01/15/18 09:26 Dose: 400 mg Metoprolol Succinate (Toprol Xl Tab*) 12.5 mg PO QAM [facility] Last Admin: 01/15/18 09:28 Dose: 12.5 mg Multivitamins/Minerals (Theragran/Minerals Tab*) 1 tab PO DAILY@1000 [facility] Last Admin: 01/15/18 09:28 Dose: 1 tab Nitroglycerin (Nitroglycerin Tab 0.4 Mg*) 0.4 mg SL Q5M PRN PRN Reason: ANGINA Nystatin (Nystatin Top Powder*) 1 applic TOPICAL BID [facility] Last Admin: 01/15/18 09:30 Dose: 1 applic Ondansetron HCl (Zofran Inj*) 4 mg IV Q4H PRN PRN Reason: NAUSEA/VOMITING Pharmacy Consult (Vancomycin Per Pharmacy*) 1 note FOLLOW UP .VANC PER PHARMACY [facility] Pharmacy Profile Note (Fentanyl Patch Check Q Shift) 1 note FOLLOW UP 0700, 1900 [facility] Last Admin: 01/15/18 07:21 Dose: 1 note Pharmacy Profile Note (Vancomycin Trough Check) 1 note FOLLOW UP 1630 ONE Stop: 01/16/18 16:31 Polyethylene Glycol/Electrolytes (Miralax*) 17 gm PO EVERY OTHER DAY [facility] Last Admin: 01/15/18 09:31 Dose: 17 gm Pramipexole Dihydrochloride (Mirapex Tab*) 1.5 mg PO DAILY [facility] Last Admin: 01/15/18 09:25 Dose: 1.5 mg Sertraline HCl (Zoloft*) 100 mg PO DAILY [facility] Last Admin: 01/15/18 09:28 Dose: 100 mg Tramadol HCl (Ultram*) 50 mg PO Q12HR [facility] Last Admin: 01/15/18 09:28 Dose: 50 mg Vital Signs - 8 hr 01/15/18 01/15/18 01/15/18 07:52 08:00 09:27 Temperature 97.7 F Pulse Rate 57 Respiratory 16 20 18 Rate Blood Pressure 152/56 (mmHg) O2 Sat by Pulse 97 97 Oximetry 01/15/18 01/15/18 09:28 11:02 Temperature 97.9 F Pulse Rate 56 Respiratory 16 16 Rate Blood Pressure 123/46 (mmHg) O2 Sat by Pulse 99 Oximetry Oxygen Devices in Use Now: Nasal Cannula Appearance: Patient is an 87yo female who appears stated age and is sitting in the bed in NAD. Eyes: No Scleral Icterus, PERRLA Ears/Nose/Mouth/Throat: NL Teeth, Lips, Gums, Clear Oropharnyx, Mucous Membranes Moist Neck: NL Appearance and Movements; NL JVP, Trachea Midline Respiratory: Symmetrical Chest Expansion and Respiratory Effort, Clear to Auscultation Cardiovascular: NL Sounds; No Murmurs; No JVD, RRR, - - 1+ B/L LE edema. Abdominal: No Hepatosplenomegaly, - - Normoactive BS. Ostomy pink and moist. Tenderness to palpation in LUQ consistent with previous exam. Lymphatic: No Cervical Adenopathy Extremities: No Clubbing, Cyanosis Skin: No Rash or Ulcers, No Nodules or Sclerosis Neurological: NL Sensation, NL Muscle Strength and Tone, - - Rigidity. Confused and oriented only to self. Paranoia and hallucinations regarding mainly custodial staff. Result Diagrams: 01/15/18 05:31 01/15/18 05:31 Microbiology and Other Data: Microbiology 01/13/18 12:26 Aerobic Blood Culture - Preliminary Blood Venous No Growth Day 1 Anaerobic Blood Culture - Preliminary No Growth Day 1 01/13/18 12:15 Aerobic Blood Culture - Preliminary Blood Venous No Growth Day 1 Anaerobic Blood Culture - Preliminary No Growth Day 1 01/13/18 15:30 Gram Stain - Final Sputum Assess/Plan/Problems-Billing Assessment: Patient is an 87yo female with a history of Parkinson's disease, DM, CKD, CKD, PVD who presents with SOB and hypoxia who likely has pneumonia and is improving on IV antibiotics. - Patient Problems (1) Pneumonia Current Visit: Yes Status: Acute Code(s): J18.9 - PNEUMONIA, UNSPECIFIED ORGANISM SNOMED Code(s): 050955651 Comment: - Likely aspiration pneumonia, Sputum culture pending - Cefepime for Pneumonia and pseudomonas Urinary tract infection. 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 - Hypoxia improving. - Supportive care and aggressive pulmonary toilet. (2) Acute respiratory failure with hypoxia Current Visit: Yes Status: Acute Code(s): J96.01 - ACUTE RESPIRATORY FAILURE WITH HYPOXIA SNOMED Code(s): 60567329 Comment: - Due to pneumonia. Needing up to 10L O2 - Improving - Now on 6L O2 and saturaing in the high 90s. (3) CKD (chronic kidney disease) stage 3, GFR 30-59 ml/min Current Visit: No Status: Acute Code(s): N18.3 - CHRONIC KIDNEY DISEASE, STAGE 3 (MODERATE) SNOMED Code(s): 308456103 Comment: - Cret 1.43, Near baseline - Monitor while on Antibiotics (4) Parkinson disease Current Visit: No Status: Acute Code(s): G20 - PARKINSON'S DISEASE SNOMED Code(s): 08147766 Comment: - Continue sinemet and pramiprexole at home doses. - Possible progression with possible hallucinations - Dysphagia with nectar thick and pureed texture recommended by speech therapy. (5) UTI (urinary tract infection) Current Visit: No Status: Acute Comment: - Pseudomonas in urine >100K - Continue Cefepime - UTI and pneumonia possibly contributing to delirium (6) Diabetes Current Visit: No Status: Acute Code(s): E11.9 - TYPE 2 DIABETES MELLITUS WITHOUT COMPLICATIONS SNOMED Code(s): 18328614 Comment: - Continue Lantus, scheduled insulin and SS Lispro. - Adjust scheduled insulin as needed - Relatively poor control. (7) DVT prophylaxis Current Visit: No Status: Acute Code(s): YQZ4837 - SNOMED Code(s): 573990456 Comment: - Heparin SubQ. Status and Disposition: Inpatient for severe pneumonia.
[2018-01-15] MEDS: Cefepime 1 GM in Dextrose(*) 1 GM/50 ML BAG IV SCH (14:05)
[2018-01-15] MEDS: Vancomycin(*) 1,250 MG in NS 0.9% 250 ML* 250 ML IVPB SCH (16:42)
[2018-01-15] MEDS: Atorvastatin* 40 MG TAB PO SCH (17:49)
[2018-01-15] MEDS: Allopurinol TAB* 100 MG PO SCH (17:49)
[2018-01-15] MEDS: Aspirin 81 mg CHEW TAB* 81 MG TAB.CHEW PO SCH (17:49)
[2018-01-15] MEDS: Docusate CAP* 100 MG PO SCH (20:13)
[2018-01-15] MEDS: ALPRAZolam TAB* 0.25 MG PO PRN (20:14)
[2018-01-15] MEDS ORDERED: Insulin GLARGINE(*) 1 UNITS UNIT SUBCUT SCH (21:00)
[2018-01-15] MEDS: Latanoprost 0.005%* 2.5 ml BTL BOTH EYES SCH (23:38)
[2018-01-16] MEDS: Cefepime 1 GM in Dextrose(*) 1 GM/50 ML BAG IV SCH ×2 (00:37→11:13)
[2018-01-16] MEDS: Albuterol HFA INHALER* 8 gm MDI INH SCH ×2 (03:56→11:05)
[2018-01-16] MEDS: Heparin VIAL(*) 5000 UNITS/ML VIAL (FIVE THOUSAND) SUBCUT SCH (05:36)
[2018-01-16] MEDS: Levothyroxine TAB* 125 MCG TAB PO SCH (05:36)
[2018-01-16] MEDS: fentaNYL Patch Check Q Shift 1 NOTE FOLLOW UP SCH (07:11)
[2018-01-16 07:27] LABS: Hematocrit 36 % (35-47); Hemoglobin 11.7 g/dl (12.0-16.0); Mean Corpuscular HGB Conc 32 g/dl (31-36); Mean Corpuscular Hemoglobin 27 pg (27-31); Mean Corpuscular Volume 85 fL (80-97); Platelet Count 226 10^3/ul (150-450); Red Blood Count 4.29 10^6/ul (4.00-5.40); Red Cell Distribution Width 17 % (10.5-15)
[2018-01-16] MEDS ORDERED: Insulin LISPRO* 1 UNITS UNIT SUBCUT SCH (07:30)
[2018-01-16 07:46] LABS: EGFR Non-African American 44.7 (>60)
[2018-01-16 08:47] LABS: ABS Basophils 0.1 10^3/ul (0-0.2); ABS Eosinophils 0.3 10^3/ul (0-0.6); ABS Lymphocytes 1.6 10^3/ul (1.0-4.8); ABS Monocytes 0.9 10^3/ul (0-0.8); ABS Neutrophils 13.1 10^3/ul (1.5-7.7); ABS Nucleated RBC 0 10^3/ul; Eosinophil % 2.2 %; Lymphocyte % 10.2 %; Nucleated Red Blood Cells % 0
[2018-01-16] MEDS ORDERED: fentaNYL PATCH 12 MCG/HR TRANSDERM SCH (09:00)
[2018-01-16] MEDS: Sertraline* 100 MG TAB PO SCH (09:04)
[2018-01-16] MEDS: Metoprolol Succinate XL TAB* 25 MG PO SCH (09:04)
[2018-01-16] MEDS: Divalproex ER TAB(*) 250 MG PO SCH (09:04)
[2018-01-16] MEDS: Cholecalciferol TAB* 1000 UNITS PO SCH (09:04)
[2018-01-16] MEDS: traMADol TAB* 50 MG PO SCH (09:04)
[2018-01-16] MEDS: Pramipexole TAB* 0.5 MG PO SCH (09:04)
[2018-01-16] MEDS: Gabapentin CAP(*) 100 MG PO SCH (09:05)
[2018-01-16] MEDS: Isosorbide Mononitrate ER TAB* 60 MG PO SCH (09:05)
[2018-01-16] MEDS: Docusate CAP* 100 MG PO SCH (09:05)
[2018-01-16] MEDS: Magnesium Oxide TAB* 400 MG PO SCH (09:05)
[2018-01-16] MEDS: busPIRone TAB* 10 MG PO SCH (09:05)
[2018-01-16] MEDS: Insulin LISPRO* 1 UNITS UNIT SUBCUT SCH (09:06)
[2018-01-16] MEDS: Nystatin TOP POWDER* 15 GM BTL TOPICAL SCH (09:07)
[2018-01-16] MEDS: Multivitamins/Minerals TAB PO SCH (09:07)
[2018-01-16] MEDS: Carbidopa/Levodop CR 50/200(*) TAB.CR PO SCH (09:12)
[2018-01-16 12:34] VITALS: BP 100/43
--- NOTE | 2018-01-16 15:44 | DS ---
CC: [facility]; Dr. Rachel Mendoza * DISCHARGE SUMMARY: DATE OF ADMISSION: 01/13/18. DATE OF DISCHARGE: 01/16/18. PRIMARY CARE PROVIDER: [facility]. MY ATTENDING WHILE IN THE HOSPITAL: Dr. Flores.* (DICTATED BY LORE ANNA) PRIMARY DISCHARGE DIAGNOSES: 1. Community acquired pneumonia associated due to Haemophilus influenzae. 2. Urinary tract infection due to Pseudomonas aeruginosa. 3. Paranoia. 4. Delusion. SECONDARY DISCHARGE DIAGNOSES: 1. Diabetes. 2. Depression. 3. Anxiety. 4. Gout. 5. Chronic kidney disease. 6. Hypothyroidism. 7. Parkinson's disease. 8. Restless leg syndrome. 9. Peripheral vascular disease. 10. Gastroesophageal reflux disease. 11. Colostomy secondary to complicated hernia repair. 12. Right knee pain. STUDIES DONE WHILE IN THE HOSPITAL: Chest x-ray from 01/13/18 read as cardiomegaly with COPD and pulmonary vascular congestion. Venous Doppler study from 01/13/18 read as no evidence of deep vein thrombosis identified. Lungs V/Q scan read as no scintigraphic evidence for pulmonary embolism, negative exam. Chest x-ray from 01/14/18, read as chronic pleural changes left lung field is clear. Abdomen x-ray from 01/15/18 read as nonspecific bowel gas pattern, large amount of stool throughout the colon. MEDICATIONS AT DISCHARGE: 1. Mirapex 1.5 mg p.o. t.i.d. 2. Polyethylene glycol 17 g p.o. every other day. 3. Magnesium oxide 400 mg p.o. b.i.d. 4. Latanoprost 1 drop both eyes at bedtime. 5. Sinemet CR 5/200 one tab p.o. at 0800, 1300, 1700. 6. Allopurinol 300 mg p.o. q.p.m. 7. Tylenol 650 mg p.o. q.4 hours as needed. 8. Tramadol 50 mg p.o. q.4 hours as needed. 9. Nitroglycerin 0.4 mg sublingual q.5 minutes as needed. 10. Xanax 0.5 mg p.o. at bedtime as needed. 11. Aspirin 81 mg p.o. q.p.m. 12. Vitamin D 2000 units p.o. q.p.m. 13. Synthroid 125 mcg p.o. q.a.m. 14. Lipitor 40 mg p.o. q.p.m. 15. Depakote 250 mg p.o. daily. 16. Fentanyl 12 mcg transdermal patch q.72 hours. 17. Sertraline 100 mg p.o. daily. 18. BuSpar 10 mg p.o. b.i.d. 19. Gabapentin 200 mg p.o. t.i.d. 20. Lantus 70 units subcutaneous daily. 21. Lispro 100 units subcutaneous with meals. 22. Imdur 60 mg p.o. daily. 23. Metoprolol 12.5 mg p.o. q.a.m. 24. Senna 1 tab p.o. daily. 25. Albuterol sulfate 1 inhalation p.o. t.i.d. 26. Guaifenesin 1 tab p.o. b.i.d. 27. Probiotic 1 cap p.o. daily. 28. Multivitamin 1 tab p.o. daily. 29. Glycerin suppository 1 suppository daily as needed. 30. Magnesium hydroxide 30 mL p.o. as needed. 31. Docusate 200 mg p.o. b.i.d. 32. Levofloxacin 750 mg p.o. every other day x4. 33. Nystatin topical powder 1 application topical b.i.d. as needed. New medications at discharge: 1. Docusate. 2. Levofloxacin. 3. Nystatin. Medications continued at discharge: 1. Meclizine. 2. Doxycycline. HOSPITAL COURSE: This is a brief summary of patient's presentation. For more details, please see history and physical from Melissa Paredes NP, on . In brief, the patient is a 87-year-old female with past medical history significant for the above, who upon admission had several days of increasing cough, shortness of breath along with dysuria, suprapubic pain. The patient's initial presenting complaint was severe pain in her right lower extremity. The patient was recently admitted to this hospital and had x-rays of her lower extremity. The patient had Doppler of her right lower leg, which was negative for DVT. The patient initially needed up to 10 L oxygen to maintain adequate saturation. The patient was admitted to the hospital and treated for presumed community acquired pneumonia. The patient had a sputum culture, which grew Haemophilus influenzae and a urine culture grew Pseudomonas aeruginosa. The patient was initially very confused when she came into the hospital. The patient perseverated about her missed treatment at her [facility], which was not able to be corroborated by her power of chemical lab supervisor, who is a friend of hers. The patient also states that she could hear the staff talking about her in the hallway, and this is likely impossible due to the fact the patient is incredibly hard of hearing. The patient initially had a white blood cell count 16.5, which elevated to 20.4 and then began to decrease. The patient had an HONG on admission with a creatinine of 2.07 which decreased to 1.15, which was around the patient's baseline. The patient had an escalation of her scheduled insulin dose, initially to 15 units with meals due to hyperglycemia; however, the patient did receive steroids in the emergency department, likely contributing to her leukocytosis and hyperglycemia. The patient's blood sugar was able to be controlled on her home dose of Humalog with meals. By the end of her hospitalization, the patient was weaned entirely off of oxygen and saturating in the low 90s on room air. The patient's blood pressure was generally well controlled during her hospitalization with only 2 hypertensive readings. The patient continued to complain of right lower extremity pain, but the Doppler study was negative, and the patient is able to ambulate which she says is her baseline with this. Patient recently had an x-ray of this extremity, which was negative. The patient, during hospitalization, was evaluated by the speech therapy and found to be aspirating on thin liquids and most fluids, and a nectar thickened pureed texture diet was recommended. The patient was as above was very confused on admission and this improved and it was likely delirium related to her underlying infections and hospitalization. A psychiatric consultation was requested, but was unable to be completed during the patient's hospitalization. The patient was stable enough for discharge on 01/16/18. PHYSICAL EXAMINATION AT TIME OF DISCHARGE: General: The patient is an 87-year- old female, who appears stated age, sitting comfortably in bed, in no acute distress. HEENT: Head: Normocephalic, atraumatic. Sclerae anicteric. No conjunctival injection. Nasal mucosa moist. Oral mucosa moist. No pharyngeal erythema, discharge, or exudates. Vital signs at the time of discharge: Temperature 98.1, pulse rate 57, respiratory rate 16, oxygen saturation 90% on room air, blood pressure 179/56. Neck: Supple, nontender. No lymphadenopathy. No carotid bruit auscultated. No JVD. Cardiac: Regular rate and rhythm with grade 2/6 holosystolic murmur heard best at the apex. Pulses 2+ bilaterally in dorsalis pedis, posterior tibialis, and radial areas. Trace lower extremity edema noted. No bilateral calf tenderness noted. Respiratory: Slight crackles in the right lower lobe. No other adventitious lung sounds. Good air exchange bilaterally. Abdomen: Obese, nontender, nondistended. Colostomy in place draining semisolid stool, pink and intact. Genitourinary: No suprapubic or CVA tenderness. Skin: Clean, dry and intact. No rash. Neuro: Mask like facies, hypomimia, rigidity, shuffling gait consistent with Parkinson's disease. No other cranial nerve deficits. No other weakness noted except for decreased strength in the right lower extremity due to pain. Psychiatric: Pleasant and cooperative. Delusions and paranoia seem to have decreased significantly. DISCHARGE PLAN: The patient will be discharged back to [facility]. The patient will be on Levaquin for 4 more doses, q.48 hours due to her renal impairment. The patient will be continued on her blood pressure medications as she was on before as well as her home insulin dosing. The patient had no growth on her blood cultures. The patient does have a murmur which has not previously been noted by her or any other documentation. However, given the patient's negative blood cultures, new onset endocarditis is not likely. The patient could have an echocardiogram at a later point to further elucidate this. Patient has no signs of heart failure or other symptomatic valvular disease. Psychiatric consultation was requested for the patient while she was inpatient; however, given the improvement in the patient's delusion while she was in the hospital, it was likely that these were related to a certain degree to her underlying infections. If there are continued behavioral concerns with the patient, an outpatient psychiatric consultation as well as routine followup with her neurologist should be continued. It is possible, the patient has advancing dementia from her underlying Parkinson's disease, though review of her notes from her neurologist says this calls into question her Parkinson's diagnosis. The patient will continue on Sinemet and pramipexole for this. Escalation of the therapy should be discussed with her neurologist as outpatient as this is unlikely to affect her altered mental status. The patient should be continued on a nectar thick pureed texture diet, it is heart- healthy with no caffeine and consistent carbohydrate. This should be reevaluated by a speech therapist in the future as this may have been due to inflammation of the patient's airway due to her pneumonia. The patient should have her routine care for her diabetes and to have her insulin dose adjusted as needed and have her blood sugar checked with every meal. The patient should have a repeat BMP and CBC in 1 week to ensure continued improvement in her white blood cell count and no decrease in her creatinine. The patient should return to the hospital for alarming symptoms such as severe chest pain, severe shortness of breath, high fevers, inability to ambulate, or other alarming symptoms. The patient should, if needed, follow up with an orthopedist for her lower extremity if this becomes debilitating for her. The patient should engage in ongoing physical therapy evaluations while she is at [facility]. TIME SPENT: Approximately 60 minutes was spent on the discharge of this patient , 30 of which was spent [id number] with the patient and obtaining history and physical and discussing treatment plan. LORE ANNA [id number]/CPS #: [id number] MTDD
[2018-01-16] MEDS ORDERED: Vancomycin Trough Check NOTE FOLLOW UP ONE (16:30)
== END 2018-01-16 12:00 | DRG 193 ==
LOC: ED 09:51 → MED 14:53
PROVIDERS: ADMIT Internal Medicine; ATTEND Internal Medicine
DX: J10.01 Influenza due to other identified influenza virus with the same other identified influenza virus pneumonia (principal); J96.01 Acute respiratory failure with hypoxia; N39.0 Urinary tract infection, site not specified; N17.9 Acute kidney failure, unspecified; N18.5 Chronic kidney disease, stage 5; E11.65 Type 2 diabetes mellitus with hyperglycemia; G20 Parkinson's disease; E11.51 Type 2 diabetes mellitus with diabetic peripheral angiopathy without gangrene; E11.22 Type 2 diabetes mellitus with diabetic chronic kidney disease; F22 Delusional disorders; B96.5 Pseudomonas (aeruginosa) (mallei) (pseudomallei) as the cause of diseases classified elsewhere; I12.9 Hypertensive chronic kidney disease with stage 1 through stage 4 chronic kidney disease, or unspecified chronic kidney disease; F32.9 Major depressive disorder, single episode, unspecified; F41.9 Anxiety disorder, unspecified; M10.9 Gout, unspecified; Z66 Do not resuscitate; E03.9 Hypothyroidism, unspecified; G25.81 Restless legs syndrome; K21.9 Gastro-esophageal reflux disease without esophagitis; Z93.3 Colostomy status; M25.561 Pain in right knee; R74.9 Abnormal serum enzyme level, unspecified; Z79.1 Long term (current) use of non-steroidal anti-inflammatories (NSAID); Z79.4 Long term (current) use of insulin; Z79.899 Other long term (current) drug therapy; Z88.5 Allergy status to narcotic agent; Z88.2 Allergy status to sulfonamides; Z91.040 Latex allergy status; Z83.3 Family history of diabetes mellitus; Z80.0 Family history of malignant neoplasm of digestive organs; Z82.49 Family history of ischemic heart disease and other diseases of the circulatory system
CPT/HCPCS: 36415; 71045; 74018; 78582; 80048; 80053; 81003; 81015; 82947; 83605; 83735; 83880; 84145; 84484; 85025; 85379; 85610; 85730; 86140; 87040; 87070; 87077; 87086; 87185; 87186; 87205; 99284; A9270-GY; A9540; A9558; G8978-GP-CK; G8979-GP-CI; G8987-GO-CK; G8988-GO-CJ; J0692; J0696; J0744; J1644; J2405; J2930; J3010; J3370

== ENCOUNTER → 2018-03-22 | Emergency (ER) | payer MEDICARE, BC ==
[~2018-03-22] MED LIST changes: -Buffered Lidocaine 0.9% SYRIN* 5 ML/SYR SYRINGE INTRADERM ONE; +traMADol TAB* 50 MG PO ONE
--- NOTE | 2018-03-22 17:47 | ED ---
Upper Extremity Pain - HPI Summary HPI Summary: An 87 y/o female brought in by [facility] presents to [facility] with a chief complaint of left arm pain since a fall on 03/20/18. The patient reports that her left arm is bruised and that it hurts to move. She reports that her pain has been ranging between an 8/10 and a 10/10 in severity. She reports that she fell while getting out of her wheelchair to go to the bathroom. She denies hitting her head. She c/o occasional SOB and discharge from her rectum since .. She denies fever, chills, erythema (eyes), sore throat, chest pain, cough, abdominal pain, vomiting, nausea, dysuria, hematuria, myalgia, edema, rash and dizziness. She reports that she had a fractured scapula 4 years ago. Hx diverticulitis. SHx colectomy. - History of Current Complaint Chief Complaint: EDExtremityUpper Stated Complaint: LT ARM PAIN Time Seen by Provider: 03/22/18 17:28 Hx Obtained From: Patient, EMS Mechanism Of Injury: Fall From A Standing Position Onset/Duration: Started Days Ago, Still Present Timing: Constant, Lasting Days Severity Initially: Severe Severity Currently: Severe Pain Location: Arm Character: Unable to Describe Aggravating Factor(s): Movement Alleviating Factor(s): Nothing Associated Signs & Symptoms: Positive: SOB. Negative: Fever, Chest Pain, Nausea , Vomiting - Allergies/Home Medications Allergies/Adverse Reactions: Allergies Allergy/AdvReac Type Severity Reaction Status Date / Time latex Allergy Intermediate Hives/Diff. Verified 10/22/17 21:03 Breathing/I tching Sulfa (Sulfonamide Allergy Intermediate Hives/Rash Verified 10/22/17 21:03 Antibiotics) codeine AdvReac Mild GI Upset Verified 10/22/17 21:03 PMH/Surg Hx/FS Hx/Imm Hx Endocrine/Hematology History: Reports: Hx Diabetes, Hx Thyroid Disease - hypothyroidism Cardiovascular History: Reports: Hx Cardiomegaly, Hx Congestive Heart Failure, Hx Hypertension Denies: Hx Pacemaker/ICD Respiratory History: Denies: Hx Asthma, Hx Chronic Obstructive Pulmonary Disease (COPD) GI History: Reports: Hx Gastroesophageal Reflux Disease, Hx Hiatal Hernia, Other GI Disorders - has a colostomy, Hx diverticulitis History: Reports: Hx Chronic Renal Failure Denies: Hx Renal Disease Musculoskeletal History: Reports: Hx Arthritis, Other Musculoskeletal History - gout Sensory History: Reports: Hx Cataracts, Hx Contacts or Glasses - reading, has them here, Hx Glaucoma, Hx Hearing Aid - b/l, has them here Opthamlomology History: Reports: Hx Cataracts, Hx Contacts or Glasses - reading , has them here, Hx Glaucoma Neurological History: Reports: Hx Headaches, Hx Migraine, Hx Nerve Disease - restless legs syndrome, Hx Seizures - myoclonic, Other Neuro Impairments/ Disorders - parkinson's Psychiatric History: Reports: Hx Anxiety, Hx Depression Denies: Hx Panic Disorder - Cancer History Cancer Type, Location and Year: skin Hx Chemotherapy: No - Surgical History Surgery Procedure, Year, and Place: HYSTERECTOMY, APPY, CHOLECYSTECTOMY, HX OF COLOSTOMY. partial bowel obstruction,. glaucoma eye surgery x3, bilateral knees, right shoulder, bladder x2 Hx Anesthesia Reactions: No Infectious Disease History: No Infectious Disease History: Denies: Traveled Outside the [place] in Last 30 Days - Family History Known Family History: Negative: Renal Disease - Social History Alcohol Use: None Substance Use Type: Reports: None Smoking Status (MU): Never Smoked Tobacco Review of Systems Negative: Fever, Chills Negative: Erythema Negative: Sore Throat Negative: Chest Pain Positive: Shortness Of Breath. Negative: Cough Positive: Other - Positive: rectal discharge. Negative: Abdominal Pain, Vomiting, Nausea Negative: dysuria, hematuria Positive: Myalgia - left arm pain. Negative: Edema Negative: Rash Neurological: Negative - dizziness All Other Systems Reviewed And Are Negative: Yes Physical Exam - Summary Physical Exam Summary: Constitutional: Well-developed, Well-nourished, Alert. (-) Distressed Skin: Warm, Dry HENT: Normocephalic; Atraumatic Eyes: Conjunctiva normal Neck: Musculoskeletal ROM normal neck. (-) JVD, (-) Stridor, (-) Tracheal deviation Cardio: Rhythm regular, rate normal, Heart sounds normal; Intact distal pulses; The pedal pulses are 2+ and symmetric. Radial pulses are 2+ and symmetric. (-) Murmur Pulmonary/Chest wall: Effort normal. (-) Respiratory distress, (-) Wheezes, (-) Rales Abd: Soft, (-) epigastric tenderness, (-) Distension, (-) Guarding, (-) Rebound Musculoskeletal: Significant tenderness left elbow, humerus and shoulder joint, Passive and active ROM are relatively intact, (-) Edema Lymph: (-) Cervical adenopathy Neuro: Alert, Oriented x3 Psych: Mood and affect Normal Triage Information Reviewed: Yes Vital Signs On Initial Exam: Initial Vitals Temp Pulse Resp BP Pulse Ox 98.4 F 76 15 140/60 94 03/22/18 17:26 03/22/18 17:26 03/22/18 17:26 03/22/18 17:26 03/22/18 17:26 Vital Signs Reviewed: Yes Diagnostics - Vital Signs Vital Signs Temp Pulse Resp BP Pulse Ox 03/22/18 17:26 98.4 F 76 15 140/60 94 - Laboratory Lab Statement: Any lab studies that have been ordered have been reviewed, and results considered in the medical decision making process. - Radiology humerus x-ray Radiology Interpretation Completed By: ED Physician Summary of Radiographic Findings: NO acute disease. Pending official radiology report. shoulder x-ray Radiology Interpretation Completed By: ED Physician Summary of Radiographic Findings: NO acute disease. Pending official radiology report. elbow x-ray Radiology Interpretation Completed By: ED Physician Summary of Radiographic Findings: NO acute disease. Pending official radiology report. Re-Evaluation - Re-Evaluation First Eval Re-Evaluation Time: 18:53 Change: Improved Comment: discussed imaging results. Patient is ready for discharge Course/Dx - Course Course Of Treatment: An 87 y/o female brought in by [facility] presents to [facility] with a chief complaint of left arm pain since a fall on 03/20/18. The physical exam revealed significant tenderness left elbow, humerus and shoulder joint, Passive and active ROM are relatively intact. In the ED course the patient was given 50mg Ultram PO at 17:47. Humerus x-ray, shoulder x-ray and elbow x-ray were all negative. The patient will be placed in a sling. She will be discharged. She was instructed to take tylenol as needed for the pain. She was given ED return precautions and was instructed to follow up with her PCP and ortho. The patient is agreeable with this plan. - Diagnoses Provider Diagnoses: Fracture of humerus with routine healing Discharge - Sign-Out/Discharge Documenting (check all that apply): Patient Departure - DC Patient Received Moderate/Deep Sedation with Procedure: No - Discharge Plan Condition: Stable Disposition: HOME Referrals: Giorgio Durant MD [Primary Care Provider] - (2-3 days) Salvatore Gil MD [Medical Doctor] - (2-3 days) Additional Instructions: Take tylenol as needed for pain. We will apply a sling. Return to the ED if you experience any new or worsening symptoms. - Billing Disposition and Condition Condition: STABLE Disposition: Home - Attestation Statements Document Initiated by Scribe: Yes Documenting Scribe: Kartik Carvalho Provider For Whom Sherry is Documenting (Include Credential): Samir Cheney MD Scribe Attestation: I, Kartik Carvalho, scribed for Samir Cheney MD on 03/26/18 at 1032. Scribe Documentation Reviewed: Yes Provider Attestation: The documentation as recorded by the Kartik greer accurately reflects the service I personally performed and the decisions made by me, Samir Cheney MD Status of Scribe Document: Viewed
[2018-03-22 19:37] VITALS: BP 152/62
== END | disposition home or self-care (01) ==
LOC: ED 17:20
DX: S42.302D Unspecified fracture of shaft of humerus, left arm, subsequent encounter for fracture with routine healing (principal); W05.0XXD Fall from non-moving wheelchair, subsequent encounter; M19.022 Primary osteoarthritis, left elbow; M19.012 Primary osteoarthritis, left shoulder; R06.02 Shortness of breath; K62.89 Other specified diseases of anus and rectum; Z88.5 Allergy status to narcotic agent; Z88.2 Allergy status to sulfonamides; Z91.040 Latex allergy status
CPT/HCPCS: 99283; A9270-GY

== ENCOUNTER 2018-04-20 17:53 | Emergency (ER) | payer MEDICARE, BC ==
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
[2018-04-20 18:55] LABS: Urine Appearance Cloudy; Urine Bacteria Absent (Absent); Urine Bilirubin Negative (Negative); Urine Blood Negative (Negative); Urine Color Yellow; Urine Glucose 1+(50 mg/dL) (Negative); Urine Ketones Trace (Negative); Urine Nitrite Negative (Negative); Urine Protein 2+(100 mg/dL) (Negative); Urine Red Blood Cell Absent (Absent); Urine Specific Gravity 1.016 (1.010-1.030); Urine Squamous Epithelial Cell Present (Absent); Urine Urobilinogen Negative (Negative); Urine White Blood Cell 2+(11-20/hpf) (Absent)
[2018-04-20 19:13] LABS: ABS Basophils 0 10^3/ul (0-0.2); ABS Eosinophils 0.2 10^3/ul (0-0.6); ABS Lymphocytes 1.2 10^3/ul (1.0-4.8); ABS Monocytes 0.6 10^3/ul (0-0.8); ABS Neutrophils 6.8 10^3/ul (1.5-7.7); ABS Nucleated RBC 0 10^3/ul; Eosinophil % 2.8 %; Hematocrit 35 % (35-47); Hemoglobin 11.5 g/dl (12.0-16.0); Lymphocyte % 13.7 %; Mean Corpuscular HGB Conc 32 g/dl (31-36); Mean Corpuscular Hemoglobin 28 pg (27-31); Mean Corpuscular Volume 85 fL (80-97); Mean Platelet Volume 8.5 fL (7.4-10.4); Nucleated Red Blood Cells % 0; Platelet Count 164 10^3/ul (150-450); Red Blood Count 4.16 10^6/ul (4.00-5.40); Red Cell Distribution Width 18 % (10.5-15); White Blood Count 8.9 10^3/ul (3.5-10.8)
[2018-04-20 19:14] LABS: Troponin I 0.02 ng/mL (<0.04)
[2018-04-20 19:19] LABS: Barbiturates Urine Screen None Detected (None Detect); Benzodiazepine Urine Screen Presumptive Positive (None Detect); Urine Cannabinoids Screen None Detected (None Detect)
[2018-04-20 19:27] LABS: ALT 12 U/L (7-52); AST 20 U/L (13-39); Albumin/Globulin Ratio 1.4 (1-3); Alkaline Phosphatase 89 U/L (34-104); Anion Gap 8 mmol/L (2-11); BUN/Creatinine Ratio 19.9 (8-20); Blood Urea Nitrogen 32 mg/dL (6-24); CO2 Carbon Dioxide 23 mmol/L (22-32); Calcium 9.3 mg/dL (8.6-10.3); Chloride 105 mmol/L (101-111); Creatine Kinase 116 U/L (10-223); EGFR African American 36.7 (>60); EGFR Non-African American 30.3 (>60); Globulin 2.8 g/dL (2-4); Glucose 272 mg/dL (70-100); Magnesium 1.7 mg/dL (1.9-2.7); Potassium 4.3 mmol/L (3.5-5.0); Sodium 136 mmol/L (135-145); Total Protein 6.8 g/dL (6.4-8.9)
[2018-04-20 19:29] LABS: Alcohol < 10 mg/dL (<10)
[2018-04-20 19:38] LABS: TSH (Thyroid Stimulating Horm) 2.94 mcIU/mL (0.34-5.60)
[2018-04-20 19:53] LABS: Acetaminophen 1 mcg/mL
--- NOTE | 2018-04-20 22:12 | ED ---
Progress - Progress Note Progress Note: The pt is a signout from Dr. Newton pending E. - Results/Orders Results/Orders: Brain CT 1. No acute intracranial abnormality. 2. Age-related atrophy and mild chronic small vessel ischemic disease. 3. Chronic right mastoid and middle ear effusions. ED physician has reviewed this report. Re-Evaluation - Re-Evaluation First Eval Re-Evaluation Time: 20:57 Comment: Pt is medically cleared for a mental health evaluation. Course/Dx - Course Course Of Treatment: The pt is a signout from Dr. Newton pending E. Per Dr. Sierra, the pt will be placed on mental health hold to be seen by the psychiatrist in the morning, and recommended a CT. Brain CT shows 1. No acute intracranial abnormality. 2. Age-related atrophy and mild chronic small vessel ischemic disease. 3. Chronic right mastoid and middle ear effusions. The pt will be signed out to Dr. Sosa pending mental health evaluation. - Diagnoses Provider Diagnoses: Acute on chronic renal failure, Delirium, Dementia, Parkinson disease, Adverse effects of medication Discharge - Sign-Out/Discharge Documenting (check all that apply): Patient Departure, Sign-Out Patient, Receiving Sign-Out Signing out patient TO: Abiodun Sosa Receiving patient FROM: Boogie Newton - Discharge Plan Condition: Improved Disposition: [facility] Patient Education Materials: Parkinson Disease (ED), Dementia (ED) Referrals: Giorgio Durant MD [Primary Care Provider] - Additional Instructions: Call today to schedule prompt follow-up with her primary care physician. Ensure adequate hydration. Return with fever, worsening mental status, new symptoms or other concerns. Stop taking the Sinemet as this may be having a reaction to Seroquel - Billing Disposition and Condition Condition: IMPROVED Disposition: Nursing Home Facility - Attestation Statements Document Initiated by Shireenibe: Yes Documenting Scribe: Elli Carrillo Provider For Whom Sherry is Documenting (Include Credential): Lurdes Mercado MD. Scribe Attestation: Elli Ventura scribed for Lurdes Mercado MD. on 04/22/18 at 0622. Scribe Documentation Reviewed: Yes Provider Attestation: The documentation as recorded by the Elli greer accurately reflects the service I personally performed and the decisions made by me, Lurdes Mercado MD. Status of Scribe Document: Viewed
[2018-04-21] MEDS ORDERED: Levothyroxine TAB* 25 MCG TAB PO ONE (06:58)
--- NOTE | 2018-04-21 07:12 | ED ---
Progress - Progress Note Progress Note: Receiving sign out from Dr. Mercado, pending MHE. The patient's condition is stable at this time. She will be discharged with final dx of acute on chronic renal failure, delirium, Parkinson's disease, and dementia. Re-Evaluation - Re-Evaluation First Eval Re-Evaluation Time: 20:57 Comment: Pt is medically cleared for a mental health evaluation. Course/Dx - Course Course Of Treatment: Nurse's notes reviewed. Patient's creatinine had elevated from 1-1.6 over the course of the day. She was hydrated here by me. She received mental health evaluation and the psychiatrist's wishes for her to have the Sinemet stopped. He feels that this is competing with her Seroquel and likely causing her symptoms. She has no gross evidence of UTI though antibiotic was given pending culture. She'll be returned to the senior living and followed by her primary physician. - Diagnoses Provider Diagnoses: Acute on chronic renal failure, Delirium, Dementia, Parkinson disease, Adverse effects of medication - Provider Notifications Discussed Care Of Patient With: Brandi Sierra Time Discussed With Above Provider: 08:40 Instructed by Provider To: Other - A full MHE is unable to be performed due to the patients dementia. Dr. Sierra believes that she is on too high of a dose of Sinemet for her Parkinsons and that is the root cause of her AMS. He recommends stopping the Sinemet because it is competing with the Seroquel. She can be discharged home. - Critical Care Time Critical Care Time: 30-74 min - Critical care time is exclusive of separately billed procedures Discharge - Sign-Out/Discharge Documenting (check all that apply): Patient Departure - Discharge, Receiving Sign-Out Receiving patient FROM: Lurdes Mercado Patient Received Moderate/Deep Sedation with Procedure: No - Discharge Plan Condition: Improved Disposition: [facility] Patient Education Materials: Parkinson Disease (ED), Dementia (ED) Referrals: Giorgio Durant MD [Primary Care Provider] - Additional Instructions: Call today to schedule prompt follow-up with her primary care physician. Ensure adequate hydration. Return with fever, worsening mental status, new symptoms or other concerns. Stop taking the Sinemet as this may be having a reaction to Seroquel - Billing Disposition and Condition Condition: IMPROVED Disposition: Longterm Facility - Attestation Statements Document Initiated by Sherry: Yes Documenting Scribe: Paradise Hernandez Provider For Whom Scribe is Documenting (Include Credential): Abiodun Sosa MD Scribe Attestation: IParadise, scribed for Abiodun Sosa MD on 04/21/18 at 1034. Scribe Documentation Reviewed: Yes Provider Attestation: The documentation as recorded by the scribeParadise accurately reflects the service I personally performed and the decisions made by Abiodun de león MD Status of Scribe Document: Viewed
[2018-04-21] MEDS ORDERED: NS 0.9% 1000 ML** 1,000 ML IV ONE (07:25)
[2018-04-21] MEDS ORDERED: cefTRIAXone(*) 1 GM in NS 0.9% 50 ML* 50 ML IVPB ONE (08:41)
[2018-04-21] MEDS: Levothyroxine TAB* 125 MCG TAB PO ONE ×2 (09:07)
[2018-04-21 11:17] VITALS: BP 157/80
== END 2018-04-21 11:16 ==
LOC: ED 17:53
DX: N18.9 Chronic kidney disease, unspecified (principal); R41.0 Disorientation, unspecified; F03.90 Unspecified dementia, unspecified severity, without behavioral disturbance, psychotic disturbance, mood disturbance, and anxiety; G20 Parkinson's disease; T50.905A Adverse effect of unspecified drugs, medicaments and biological substances, initial encounter; Y92.9 Unspecified place or not applicable; Z79.82 Long term (current) use of aspirin; Z88.6 Allergy status to analgesic agent; Z88.2 Allergy status to sulfonamides
CPT/HCPCS: 36415; 70450; 71045; 80053; 80307; 80320; 80329; 81003; 81015; 82140; 82550; 83605; 83735; 84443; 84484; 85025; 87086; 93005; 96365; 99285; A9270-GY; G0480; J0696

== ENCOUNTER 2018-09-17 15:42 | Inpatient (IN) | payer MEDICARE, BC, MEDICAID ==
--- NOTE | 2018-09-17 15:56 | ED ---
Psychiatric Complaint - HPI Summary HPI Summary: The patient is an 87 y/o F arriving by ambulance to [facility] from [facility] with a chief complaint of depression, auditory hallucinations, and SI with an unspecified plan worsening today. She spoke with a social media editor today, who notes that the patient exclaimed self-harm and wanted to end her life. The patient states that her children argue with her and make threatening statements towards her, which is why she is feeling the way she is now. She is not in any pain. PMHx: DM, thyroid disease, cardiomegaly, CHF, GERD, hiatal hernias, CHRISTOPHER, migraine, seizures, Parkinsons, dementia, anxiety, depression, auditory hallucinations, hysterectomy, appendectomy, cholecystectomy, partial SBO, colostomy. Nonsmoker, no EtOH, no substance use. - History Of Current Complaint Hx Obtained From: Patient, EMS Onset/Duration: Lasting Hours, Still Present Timing: Constant Severity Initially: Moderate Severity Currently: Moderate Character: Depressed Aggravating Factor(s): Other - arguments with children Alleviating Factor(s): Nothing Related History: Positive For: Prior Psychiatric Issues - anxiety, depression Has Suicidal: Reports: Thoughts, With A Plan - doesn't describe - Allergies/Home Medications Allergies/Adverse Reactions: Allergies Allergy/AdvReac Type Severity Reaction Status Date / Time latex Allergy Intermediate Hives/Diff. Verified 04/21/18 07:12 Breathing/I tching Sulfa (Sulfonamide Allergy Intermediate Hives/Rash Verified 04/21/18 07:12 Antibiotics) indomethacin Allergy Unknown Verified 04/21/18 07:12 Reaction Details codeine AdvReac Mild GI Upset Verified 04/21/18 07:12 Home Medications: Home Medications Acetaminophen [Tylenol Extra Strength] 500 mg PO DAILY PRN 09/17/18 [History Confirmed 09/17/18] Allopurinol TAB* [Zyloprim 100 MG TAB*] 100 mg PO DAILY 09/17/18 [History Confirmed 09/17/18] Amlodipine Besylate [Amlodipine 2.5 mg tab] 2.5 mg PO DAILY 09/17/18 [History Confirmed 09/17/18] Insulin ASPART (NF) [Novolog (NF)] 10 unit SUBCUT 0830,1230,1730 09/17/18 [ History Confirmed 09/17/18] Insulin Detemir [Levemir Flextouch] 100 unit SUBCUT DAILY 09/17/18 [History Confirmed 09/17/18] Sertraline HCl [Zoloft] 50 mg PO DAILY 09/17/18 [History Confirmed 09/17/18] amLODIPine TAB* [Norvasc 5 mg TAB*] 5 mg PO DAILY 09/17/18 [History Confirmed ] PMH/Surg Hx/FS Hx/Imm Hx Endocrine/Hematology History: Reports: Hx Diabetes, Hx Thyroid Disease - hypothyroidism Cardiovascular History: Reports: Hx Cardiomegaly, Hx Congestive Heart Failure, Hx Hypertension Denies: Hx Pacemaker/ICD Respiratory History: Denies: Hx Asthma, Hx Chronic Obstructive Pulmonary Disease (COPD) GI History: Reports: Hx Gastroesophageal Reflux Disease, Hx Hiatal Hernia, Other GI Disorders - has a colostomy, Hx diverticulitis History: Reports: Hx Chronic Renal Failure Denies: Hx Renal Disease Musculoskeletal History: Reports: Hx Arthritis, Hx Gout Sensory History: Reports: Hx Cataracts, Hx Contacts or Glasses - reading, has them here, Hx Glaucoma, Hx Hearing Aid - b/l, has them here Opthamlomology History: Reports: Hx Cataracts, Hx Contacts or Glasses - reading , has them here, Hx Glaucoma Neurological History: Reports: Hx Dementia, Hx Headaches, Hx Migraine, Hx Nerve Disease - restless legs syndrome, Hx Seizures - myoclonic, Other Neuro Impairments/Disorders - parkinson's Psychiatric History: Reports: Hx Anxiety, Hx Depression, Other Psychiatric Issues/Disorders - auditory hallucinations Denies: Hx Panic Disorder - Cancer History Cancer Type, Location and Year: skin Hx Chemotherapy: No - Surgical History Surgery Procedure, Year, and Place: HYSTERECTOMY, APPY, CHOLECYSTECTOMY, HX OF COLOSTOMY. partial bowel obstruction,. glaucoma eye surgery x3, bilateral knees, right shoulder, bladder x2 Hx Anesthesia Reactions: No Infectious Disease History: No - Family History Known Family History: Negative: Renal Disease - Social History Alcohol Use: None Hx Substance Use: No Substance Use Type: Reports: None Hx Tobacco Use: No Smoking Status (MU): Never Smoked Tobacco Review of Systems Negative: Fever, Chills Negative: Erythema Negative: Sore Throat Negative: Chest Pain Negative: Shortness Of Breath, Cough Negative: Abdominal Pain, Vomiting, Nausea Negative: dysuria, hematuria Negative: Myalgia, Edema Negative: Rash Neurological: Other - NEGATIVE: dizziness Psychological: Other - SI with plan, auditory hallucinations Positive: Depressed All Other Systems Reviewed And Are Negative: Yes Physical Exam - Summary Physical Exam Summary: Constitutional: Well-developed, Well-nourished, Alert. (-) Distressed Skin: Warm, Dry HENT: Normocephalic; Atraumatic Eyes: Conjunctiva normal Neck: Musculoskeletal ROM normal neck. (-) JVD, (-) Stridor, (-) Tracheal deviation Cardio: Rhythm regular, rate normal, Heart sounds normal; Intact distal pulses; The pedal pulses are 2+ and symmetric. Radial pulses are 2+ and symmetric. (-) Murmur Pulmonary/Chest wall: Effort normal. (-) Respiratory distress, (-) Wheezes, (-) Rales Abd: Soft, (-) tenderness, (-) Distension, (-) Guarding, (-) Rebound Musculoskeletal: (-) Edema Lymph: (-) Cervical adenopathy Neuro: Alert, Seemingly confused Psych: Mood and affect Normal Triage Information Reviewed: Yes Vital Signs Reviewed: Yes Diagnostics - Laboratory Result Diagrams: 09/21/18 04:38 09/21/18 04:38 Lab Statement: Any lab studies that have been ordered have been reviewed, and results considered in the medical decision making process. Re-Evaluation - Re-Evaluation First Eval Re-Evaluation Time: 16:05 Comment: Patient is medically clear for [facility]. Second Eval Re-Evaluation Time: 19:25 Comment: We discussed admission. Course/Dx - Course Course Of Treatment: Patient is an 87 y/o F arriving by ambulance with cc of depression, auditory hallucinations, and SI with a plan that worsened today after meeting with a social media editor and stating want for self-harm and ending her life because her children seem to threaten her. Hx of hiatal hernias, Parkinsons, dementia, anxiety, depression. Upon physical exam, the patient exhibits confusion. Blood work is within normal limits but reveals Hgb of 11.8, RDW of 18, creatinine of 1.05, and TSH of 0.19. UA reveals specific gravity of 1.006, 1+ protein, positive nitrates, 3+ leukocyte esterase, 2+ WBCs, 1+ RBCs, and 1+ bacteria. Patient administered Rocephin for UTI. Toxicology report is negative. Patient is medically clear for [facility] at 1605. With patient's results, she warrants a medical admission. I spoke with Dr. Arrieta, hospitalist, and she accepts the patient for admission. She is diagnosed with UTI and delirium. Patient agrees with plan. - Differential Dx/Clinical Impression Provider Diagnosis: UTI (urinary tract infection), Delirium - Physician Notifications Discussed Care Of Patient With: Laura Arrieta - hospitalist Time Discussed With Above Provider: 19:20 Instructed by Provider To: Admit As Inpatient - Dr. Arrieta accepts the patient for admission. Discharge - Sign-Out/Discharge Documenting (check all that apply): Patient Departure - Patient is accepted for admission by Dr. Arrieta. Patient Received Moderate/Deep Sedation with Procedure: No - Discharge Plan Condition: Stable Disposition: ADMITTED TO [facility] - Billing Disposition and Condition Condition: STABLE Disposition: Admitted to [facility] - Attestation Statements Document Initiated by Anshule: Yes Documenting Scribe: Sudha Denise Provider For Whom Anshule is Documenting (Include Credential): Dr. Samir Cheney MD Scribe Attestation: ISudha, scribed for Dr. Samir Cheney MD on 10/05/18 at 0826. Scribe Documentation Reviewed: Yes Provider Attestation: The documentation as recorded by the Sudha greer accurately reflects the service I personally performed and the decisions made by me, Dr. Samir Cheney MD Status of Scribe Document: Viewed
[2018-09-17 16:27] LABS: ABS Basophils 0.1 10^3/ul (0-0.2); ABS Eosinophils 0.2 10^3/ul (0-0.6); ABS Lymphocytes 1.4 10^3/ul (1.0-4.8); ABS Monocytes 0.6 10^3/ul (0-0.8); ABS Neutrophils 4.9 10^3/ul (1.5-7.7); Eosinophil % 3.2 %; Hematocrit 35 % (35-47); Hemoglobin 11.8 g/dL (12.0-16.0); Lymphocyte % 19.3 %; Mean Corpuscular HGB Conc 34 g/dL (31-36); Mean Corpuscular Hemoglobin 27 pg (27-31); Mean Corpuscular Volume 82 fL (80-97); Mean Platelet Volume 8.5 fL (7.4-10.4); Platelet Count 182 10^3/uL (150-450); Red Blood Count 4.31 10^6 /uL (3.70-4.87); Red Cell Distribution Width 18 % (10-15); White Blood Count 7.3 10^3/uL (3.5-10.8)
[2018-09-17 16:51] LABS: ALT 13 U/L (7-52); AST 16 U/L (13-39); Albumin 4.5 g/dL (3.2-5.2); Albumin/Globulin Ratio 1.5 (1-3); Alkaline Phosphatase 88 U/L (34-104); Anion Gap 7 mmol/L (2-11); Blood Urea Nitrogen 21 mg/dL (6-24); CO2 Carbon Dioxide 28 mmol/L (22-32); Calcium 9.9 mg/dL (8.6-10.3); Chloride 104 mmol/L (101-111); EGFR African American 60.1 (>60); EGFR Non-African American 49.7 (>60); Glucose 97 mg/dL (70-100); Potassium 4.3 mmol/L (3.5-5.0); Sodium 139 mmol/L (135-145); Total Protein 7.5 g/dL (6.4-8.9)
[2018-09-17 17:08] LABS: Acetaminophen < 15 mcg/mL; Alcohol < 10 mg/dL (<10); Salicylate < 2.50 mg/dL (<30)
[2018-09-17 17:23] LABS: TSH (Thyroid Stimulating Horm) 0.19 mcIU/mL (0.34-5.60)
[2018-09-17 18:55] LABS: Urine Appearance Cloudy; Urine Bacteria 1+ (Absent); Urine Bilirubin Negative (Negative); Urine Blood Negative (Negative); Urine Color Yellow; Urine Glucose Negative (Negative); Urine Ketones Negative (Negative); Urine Nitrite Positive (Negative); Urine Protein 1+(30 mg/dL) (Negative); Urine Red Blood Cell 1+(3-5/hpf) (Absent); Urine Specific Gravity 1.006 (1.010-1.030); Urine Urobilinogen Negative (Negative); Urine White Blood Cell 2+(11-20/hpf) (Absent)
[2018-09-17] MEDS ORDERED: ED cefTRIAXone 1 GM/50 ML 1 GM/50 ML PREMIX.SET IVPB ONE (19:01)
[2018-09-17 19:03] LABS: Urine Benzodiazepine Screen None Detected (None Detect); Urine Opiates Screen None Detected (None Detect)
[2018-09-17] MEDS ORDERED: PROCHLORPERAZINE INJ 5 MG/ML 2 ML VIAL IV PRN (20:22)
[2018-09-17] MEDS ORDERED: Acetaminophen TAB* 325 MG PO PRN (20:22)
[2018-09-17] MEDS ORDERED: Dextrose 50% VIAL 50 ml IV PUSH PRN (21:42)
[2018-09-17] MEDS ORDERED: Morphine INJ* 2 MG/ML 1 ML SYRINGE (TWO MG - NEW SYRINGE VERSION) IV ONE (22:52)
--- NOTE | 2018-09-17 22:53 | PN ---
Hospitalist Progress Note Date of Service: 09/17/18 HOSPITALIST ADDENDUM Called by RN because patient was c/o chest pain. EKG reviewed with no acute ischemic changes. Will check serial troponins.
[2018-09-17] MEDS: Heparin VIAL(*) 5000 UNITS/ML VIAL (FIVE THOUSAND) SUBCUT SCH (23:20)
[2018-09-17] MEDS: Latanoprost 0.005%* 2.5 ml BTL BOTH EYES SCH (23:34)
[2018-09-17] MEDS: cefTRIAXone(*) 1 GM in NS 0.9% 50 ML* 50 ML IVPB SCH (23:40)
[2018-09-17] MEDS: Pramipexole TAB* 0.5 MG PO SCH (23:44)
--- NOTE | 2018-09-18 00:12 | HP ---
CC: Dr. Giorgio Durant HISTORY AND PHYSICAL: DATE OF ADMISSION: 09/17/18 TIME OF EVALUATION: 7:55 p.m. PRIMARY CARE PROVIDER: Dr. Giorgio Durant. CHIEF COMPLAINT: "I could have killed myself." HISTORY OF PRESENT ILLNESS: Mrs. Peck is an 87-year-old lady with a past medical history of type 2 diabetes, Parkinson's disease, hypothyroidism, depression, peripheral vascular disease, GERD. Resident at [facility], who presents to the emergency room due to suicidal ideation. As per ED records, the patient verbalized intention to hurt herself to the social welfare research worker there and was referred to the emergency room for further evaluation. As per mental health evaluation, the patient stated that she was being watched electronically by another resident's device. She talked about how she heard that her son and his friend watched her in the bathroom and made comments about her private areas. She also spoke about the medical record administrator of a different residential following her and paying others to kill her and other paranoid ideas. The patient tells me that she does not know exactly how this device works, but her son can watch her through her TV, but he does not know that she can hear him back too. She states that today her son and her daughter were fighting over who would come to visit her as both did not want to. She states that the night before she was changing her colostomy appliance and her son was laughing at her through the TV telling her that she was too slow. When I asked if she was afraid, her son was going to hurt her. She tells me "no , he would never do anything like that." When I asked if she would hurt herself , she said "I could have killed myself if they had left me alone." When I asked if she had the plan, she was not able to tell me any specific plan, but she states that she does not know exactly why she is still alive. She continued with her conversation about the nursing education consultant trying to make her wear an ankle cuff and also threatening her to move her to a different floor "where the crazy people are." When I told her she had been found to have a urinary tract infection, she told me that she was not surprised as she has had burning in the area for a couple of weeks. She is able to tell me that in May, she went to [facility] and she was found to have a urinary issue and from there transferred to [facility] in [place]. She has had a Howell catheter since, but she is unable to give me any more details about it. She denies fever, chills, nausea, vomiting, diarrhea, abdominal pain, flank pain , or any other complaints. She states that otherwise she is feeling pretty well. PAST MEDICAL HISTORY: 1. Type 2 diabetes. 2. Depression. 3. Anxiety. 4. Gout. 5. CKD stage 3. 6. Hypothyroidism. 7. Parkinson disease. 8. Restless legs syndrome. 9. Peripheral vascular disease. 10. GERD. 11. Status post colostomy secondary to diverticulitis. 12. Status post hysterectomy. 13. Status post lumbar spine surgery. 14. Status post carpal tunnel release. 15. Status post appendectomy. 16. Status post knee and shoulder orthopedic procedures. MEDICATIONS: 1. Acetaminophen 500 mg p.o. daily as needed for pain. 2. Allopurinol 100 mg p.o. daily. 3. Amlodipine 5 mg p.o. daily. 4. Aspirin 81 mg p.o. at bedtime. 5. Depakote ER 250 mg p.o. in the morning. 6. Insulin aspart 10 units subcutaneously at 8:30, 12:30, and 5:30. 7. Insulin detemir 100 units subcutaneously daily. 8. Imdur 60 mg p.o. daily. 9. Latanoprost 0.005% 1 drop to both eyes at bedtime. 10. Levothyroxine 175 mcg p.o. daily. 11. Magnesium oxide 400 mg p.o. daily. 12. Metoprolol tartrate 12.5 mg p.o. daily. 13. Pantoprazole 40 mg p.o. at 8 a.m. 14. Mirapex 1 mg p.o. t.i.d. 15. Sertraline 50 mg p.o. daily. ALLERGIES: To LATEX, SULFA, INDOMETHACIN, and CODEINE. FAMILY HISTORY: As per records, mother, father, and 4 siblings had diabetes. Father of heart disease, mother of stomach cancer. SOCIAL HISTORY: According to records, she is a retired hospital worker. There is no history of tobacco, alcohol, or drug use. She is a resident at [facility] and surrogate decision maker is listed as her son, Sabas Redman, phone number is [phone]. REVIEW OF SYSTEMS: I am unable to obtain from the patient at this time due to her confusion. PHYSICAL EXAMINATION GENERAL: The patient is a pleasantly confused elderly lady, lying in the ED stretcher, in no acute distress. Hard of hearing. VITAL SIGNS: Temperature 97.6, heart rate is 65, respiratory rate is 16, oxygen saturation is 97% on room air, blood pressure is 162/42. HEENT: Pupils are equal. Moist mucous membranes. CHEST: Breath sounds present bilaterally with no added sounds. CVS: Normal S1, S2. Regular rate and rhythm. ABDOMEN: Obese, soft, nontender, nondistended with a large ventral incisional hernia. The patient has a functioning left lower quadrant colostomy with full bag at this time. There is no tenderness. Bowel sounds are present. No CVA tenderness. EXTREMITIES: No edema. NEURO: She is alert and oriented x2. Hard of hearing, but no focal neurological deficits. DIAGNOSTIC STUDIES/LAB DATA: The patient had a CBC that showed WBC of 7.3, hemoglobin 11.8, hematocrit of 35, platelets 182,000 with 68% neutrophils. Chemistry showed a sodium of 139, potassium of 4.3, chloride of 104, bicarb of 28, BUN of 21, creatinine of 1.05, glucose of 97, calcium 9.9. LFTs were normal. TSH was 0.19. Urinalysis showed 1+ protein, positive nitrite, 3+ LE, 2+ wbc's, 1+ rbc's, 1+ bacteria. Urine toxicology was negative. ASSESSMENT AND PLAN: Ms. Peck is an 87-year-old lady with a past medical history of type 2 diabetes, depression, anxiety, Parkinson's disease, peripheral vascular disease, gastroesophageal reflux disease, who presented to the emergency room from [facility] with suicidal ideation. 1. Howell catheter-related urinary tract infection, present on admission, Howell catheter related. 2. The patient has burning in the urethral area, but she denies abdominal or flank pain, nausea, vomiting, fever, or any other symptoms of a complicated urinary tract infection. She will be admitted to the medical floor. We are going to continue ceftriaxone that was already started in the emergency room and we will follow her urine culture results. The patient describes being admitted to [facility] in May due to a urinary problem and since then requiring a Howell. I tried to get into her chart. I tried to get into her records through [employer] multiple times, but I was unable to. We will obtain records from [facility] and depending on what procedures she had done, we may pursue further abdominal imaging, but at this time as she has minimal symptoms I have low suspicion for an obstruction. 3. Suicidal ideation. The patient has paranoid ideation at this time thinking that her son and residential employees have placed surveillance device in her TV and she states that if no one was paying attention, she would have killed herself, although she cannot give me any specific plan. We will need to obtain collateral information from her family in the morning if this paranoid ideation is common for her. She may be more confused due to her urinary tract infection. According to collateral obtained by the ED social welfare research worker from [facility], the patient was described as having delusions in the past, but this appears to be much more severe than her usual. [facility] personnel also endorsed that they do not have the staff to monitor the patient on a one-to-one basis. At this point, she is not combative and she seems to be cooperative with care, so I do not think any other medication is indicated. 4. Hypothyroidism. The patient has iatrogenic hyperthyroidism and at this point we have a TSH of 0.19. I will check a free T4 level and I will cut down her levothyroxine dose from 175 to 125 mcg daily and she will need repeat TFTs in 4 to 6 weeks to readjust her medications as needed. 5. Parkinson disease. The patient's records state that she has Parkinson disease, but at this point she is not on Sinemet. We will continue to monitor and we will continue sertraline, Mirapex, and Depakote. 6. Type 2 diabetes. We will continue long-acting insulin with a short-acting sliding scale. 7. DVT prophylaxis. The patient has a score of 3 on the DVT Prophylaxis Assessment Guide and she will be started on subcutaneous heparin. 8. Code status is full. TIME SPENT: Approximately 60 minutes were spent with the patient's review, medical records review, physical examination to complete this admission, more than half of this time was spent [id number] with the patient and coordination of care. [id number]/[facility] #: [id number] LINDA
[2018-09-18] MEDS: Heparin VIAL(*) 5000 UNITS/ML VIAL (FIVE THOUSAND) SUBCUT SCH ×3 (06:35→21:45)
[2018-09-18] MEDS: Levothyroxine TAB* 125 MCG TAB PO SCH (06:35)
[2018-09-18 06:51] LABS: ABS Eosinophils 0.3 10^3/ul (0-0.6); ABS Lymphocytes 1.3 10^3/ul (1.0-4.8); ABS Monocytes 0.7 10^3/ul (0-0.8); Eosinophil % 3.5 %; Hematocrit 32 % (35-47); Hemoglobin 10.9 g/dL (12.0-16.0); Lymphocyte % 17.8 %; Mean Corpuscular HGB Conc 34 g/dL (31-36); Mean Corpuscular Hemoglobin 28 pg (27-31); Mean Corpuscular Volume 81 fL (80-97); Mean Platelet Volume 8.6 fL (7.4-10.4); Platelet Count 151 10^3/uL (150-450); Red Blood Count 3.99 10^6 /uL (3.70-4.87); Red Cell Distribution Width 18 % (10-15); White Blood Count 7.3 10^3/uL (3.5-10.8)
[2018-09-18 07:02] LABS: Troponin I 0.01 ng/mL (<0.04)
[2018-09-18 07:03] LABS: BUN/Creatinine Ratio 21.5 (8-20); Calcium 9.5 mg/dL (8.6-10.3); EGFR Non-African American 42.2 (>60); Potassium 4.4 mmol/L (3.5-5.0)
[2018-09-18] MEDS: Insulin LISPRO* 1 UNITS UNIT SUBCUT SCH ×4 (08:41→21:45)
[2018-09-18] MEDS ORDERED: Isosorbide Mononitrate ER TAB* 60 MG PO SCH (09:00)
[2018-09-18] MEDS ORDERED: Levothyroxine TAB* 175 MCG TAB PO SCH (09:00)
[2018-09-18] MEDS ORDERED: Allopurinol TAB* 100 MG PO SCH (09:00)
[2018-09-18] MEDS ORDERED: Metoprolol Tartrate TAB* 25 MG PO SCH (09:00)
[2018-09-18] MEDS: amLODIPine TAB* 5 MG PO SCH (09:37)
[2018-09-18] MEDS: Pramipexole TAB* 0.5 MG PO SCH ×3 (09:38→21:45)
[2018-09-18] MEDS: Sertraline* 50 MG TAB PO SCH (09:38)
[2018-09-18] MEDS: Pantoprazole TAB * 40 MG TAB PO SCH (09:38)
[2018-09-18] MEDS: Magnesium Oxide TAB* 400 MG PO SCH (09:38)
[2018-09-18] MEDS: Insulin GLARGINE(*) 1 UNITS UNIT SUBCUT SCH (09:38)
[2018-09-18] MEDS: Divalproex ER TAB(*) 250 MG PO SCH (09:39)
--- NOTE | 2018-09-18 13:09 | PN ---
Subjective Date of Service: 09/18/18 Interval History: Pt states that she had urethral burning and sensation of urinary retention last night. This has since resolved and she has no urinary complaints today. She has a chronic manuel since May; this has been replaced 09/18. She denies CP, SOB, abd pain, n/v/d. She was noted to have CP last night, but this is resolved. Patient continues to have paranoid delusions and appears to be depressed, stating "I don't want to do this anymore." She denies suicidal ideation, but states she does not want to discuss this topic any further, as she believes that her son and his roommate are listening in and laughing at her. She was reassured that this is not the case and she has privacy in her room, but is not convinced. Call out to HCP for more information of mentation. Called [facility] for baseline info; they state that pt is sometimes paranoid, stating she went room- to-room at [facility] searching for help, because she believed her child was kidnapped. There was a note on chart to remove all harmful instruments from room due to concern for SI. Objective Active Medications: Acetaminophen (Tylenol Tab*) 650 mg PO Q6H PRN Amlodipine Besylate (Norvasc Tab*) 5 mg PO DAILY DEVAN Aspirin (Aspirin 81 Mg Chew Tab*) 81 mg PO QPM DEVAN Dextrose (Dextrose 50% Vial 50 Ml*) 25 ml IV PUSH .FOR FS < 60 - SS PRN Divalproex Sodium (Depakote Er Tab(*)) 250 mg PO QAM DEVAN Heparin Sodium (Porcine) (Heparin Vial(*)) 5,000 units SUBCUT Q8HR DEVAN Ceftriaxone Sodium 1 gm/ (Sodium Chloride) 50 mls @ 100 mls/hr IVPB Q24H DEVAN Insulin Glargine (Lantus(*)) 50 units SUBCUT DAILY DEVAN Insulin Human Lispro (Humalog*) 0 units SUBCUT ACHS DEVAN; Protocol Latanoprost (Xalatan 0.005%*) 1 drop BOTH EYES BEDTIME DEVAN Levothyroxine Sodium (Synthroid Tab*) 125 mcg PO DAILY@0600 DEVAN Magnesium Oxide (Magox 400 Tab*) 400 mg PO DAILY DEVAN Pantoprazole Sodium (Protonix Tab*) 40 mg PO 0800 DEVAN Pramipexole Dihydrochloride (Mirapex Tab*) 1 mg PO TID DEVAN Prochlorperazine Edisylate (Compazine Inj*) 5 mg IV Q6H PRN Sertraline HCl (Zoloft*) 50 mg PO DAILY DEVAN Vital Signs: Temp Pulse Resp BP Pulse Ox 98.5 F 39 16 126/37 97 09/18/18 08:35 09/18/18 08:35 09/18/18 08:35 09/18/18 08:35 09/18/18 08:35 Oxygen Devices in Use Now: None Appearance: Pt is laying in bed with HOB elevated. She appears to be in no acute distress. She is suspicious and believes that our conversation is being monitored by her son. She becomes upset at times, on the verge of tears and appears to be depressed. Eyes: No Scleral Icterus, PERRLA Ears/Nose/Mouth/Throat: NL Teeth, Lips, Gums, Clear Oropharnyx, Mucous Membranes Moist Neck: NL Appearance and Movements; NL JVP, Trachea Midline Respiratory: Symmetrical Chest Expansion and Respiratory Effort, Clear to Auscultation Cardiovascular: NL Sounds; No Murmurs; No JVD, No Edema, - - Bradycardic; systolic murmur. Abdominal: - - BS in all quadrants. Mild TTP diffusely. Colostomy in place. Extremities: No Clubbing, Cyanosis Neurological: Alert and Oriented x 3, - - Paranoid, believes son is listening in on conversation/watching patient. States "I don't want to do this anymore," but refuses further elaboration. Result Diagrams: 09/18/18 05:59 09/18/18 05:59 Assess/Plan/Problems-Billing Assessment: Patient is an 87yof resident of [facility] with PMHx DMII, PD, hypothyroid, CKD stage III who was sent to [facility] in May for "urinary issues." She presents to the ER yesterday with SI and UTI. - Patient Problems (1) UTI (urinary tract infection) Comment: -Manuel since May; has h/o "urinary issues" and was at [facility] in May ; records have been requested -No c/o urinary symptoms today -UA with 3+ LE, + nitrates, bacteria -UC sent -Continue ceftriaxone (2) Paranoid delusion Comment: -Pt with paranoid delusions, believing that she is being watched/listened to by son -Pt also states she doesn't want to do this anymore, but denies SI/HI, plans for self harm -This may be baseline, per [facility] staff. Called HCP 09/18 for more information; no response as of yet. -UTI infection may be contributing to confusion/delusions -Psych consulted and notified -Depakote level ordered -Currently on depakote, lexapro; continue these home medications (3) Hypothyroid Comment: -TSH 0.19; Free T4 ordered -Levothyroxine from 175 to 126 -Recheck TSH, T4 in 4-6 weeks (4) Diabetes Comment: -BG controlled and ranging from 115-151 -Glargine 50 qd -Lispro ss AC, HS (5) CKD (chronic kidney disease) stage 3, GFR 30-59 ml/min Comment: -Cr within baseline range -Will continue to monitor (6) Parkinson disease Comment: -No longer appears to be on PD medications (7) DVT prophylaxis Comment: -Heparin SubQ (8) DNR (do not resuscitate) Comment: -DNR/DNI MOLST form in chart Status and Disposition: Observation. Discharge back to [facility] when stable.
[2018-09-18] MEDS: Aspirin 81 mg CHEW TAB* 81 MG TAB.CHEW PO SCH (17:23)
[2018-09-18] MEDS: Latanoprost 0.005%* 2.5 ml BTL BOTH EYES SCH (21:47)
[2018-09-18] MEDS: cefTRIAXone(*) 1 GM in NS 0.9% 50 ML* 50 ML IVPB SCH (23:22)
[2018-09-19] MEDS: Heparin VIAL(*) 5000 UNITS/ML VIAL (FIVE THOUSAND) SUBCUT SCH ×3 (05:11→21:45)
[2018-09-19] MEDS: Acetaminophen TAB* 325 MG PO PRN ×2 (05:11→19:57)
[2018-09-19] MEDS: Levothyroxine TAB* 125 MCG TAB PO SCH (05:12)
[2018-09-19] MEDS: Pramipexole TAB* 0.5 MG PO SCH ×3 (08:10→19:58)
[2018-09-19] MEDS: Divalproex ER TAB(*) 250 MG PO SCH (08:10)
[2018-09-19] MEDS: Pantoprazole TAB * 40 MG TAB PO SCH (08:10)
[2018-09-19] MEDS: Magnesium Oxide TAB* 400 MG PO SCH (08:10)
[2018-09-19] MEDS: Sertraline* 50 MG TAB PO SCH (08:10)
[2018-09-19] MEDS: Insulin GLARGINE(*) 1 UNITS UNIT SUBCUT SCH (08:10)
[2018-09-19] MEDS: amLODIPine TAB* 5 MG PO SCH (08:11)
[2018-09-19] MEDS: Insulin LISPRO* 1 UNITS UNIT SUBCUT SCH ×4 (09:04→21:43)
--- NOTE | 2018-09-19 13:29 | PN ---
Subjective Date of Service: 09/19/18 Interval History: Pt is pleasant and cooperative today. She continues to have what appear to be paranoid delusions, believing that her son is listening in on her conversations/ watching her/laughing; she notes that she can hear him at times. She has been noted to be sinus finn throughout her stay, but occasionally rate drops to < 45. She notes that she feels dizzy intermittently, mostly with ambulation, position changes. She states that it occasionally feels as if the room is spinning, but more often presents as a sensation of dizziness. She admits to occasional presyncope as well, without syncope. She denies CP, SOB. She has chronic abd pain, noted to have a large hernia. Objective Active Medications: Acetaminophen (Tylenol Tab*) 650 mg PO Q6H PRN Amlodipine Besylate (Norvasc Tab*) 5 mg PO DAILY DEVAN Aspirin (Aspirin 81 Mg Chew Tab*) 81 mg PO QPM DEVAN Dextrose (Dextrose 50% Vial 50 Ml*) 25 ml IV PUSH .FOR FS < 60 - SS PRN Divalproex Sodium (Depakote Er Tab(*)) 250 mg PO QAM DEVAN Heparin Sodium (Porcine) (Heparin Vial(*)) 5,000 units SUBCUT Q8HR DEVAN Ceftriaxone Sodium 1 gm/ (Sodium Chloride) 50 mls @ 100 mls/hr IVPB Q24H DEVAN Insulin Glargine (Lantus(*)) 50 units SUBCUT DAILY DEVAN Insulin Human Lispro (Humalog*) 0 units SUBCUT ACHS DEVAN; Protocol Latanoprost (Xalatan 0.005%*) 1 drop BOTH EYES BEDTIME DEVAN Levothyroxine Sodium (Synthroid Tab*) 125 mcg PO DAILY@0600 DEVAN Magnesium Oxide (Magox 400 Tab*) 400 mg PO DAILY DEVAN Pantoprazole Sodium (Protonix Tab*) 40 mg PO 0800 DEVAN Pramipexole Dihydrochloride (Mirapex Tab*) 1 mg PO TID DEVAN Prochlorperazine Edisylate (Compazine Inj*) 5 mg IV Q6H PRN Sertraline HCl (Zoloft*) 50 mg PO DAILY DEVAN Vital Signs: Temp Pulse Resp BP Pulse Ox 97.5 F 44 15 140/39 99 09/19/18 07:54 09/19/18 07:54 09/19/18 08:00 09/19/18 07:54 09/19/18 07:54 Oxygen Devices in Use Now: None Appearance: Pt is sitting in chair with LE at floor. She is pleasant, cooperative. She is lucid and remembers details well, a/o, but still paranoid. Eyes: PERRLA Ears/Nose/Mouth/Throat: NL Teeth, Lips, Gums, Clear Oropharnyx, Mucous Membranes Moist Neck: NL Appearance and Movements; NL JVP, Trachea Midline Respiratory: Symmetrical Chest Expansion and Respiratory Effort, Clear to Auscultation Cardiovascular: NL Sounds; No Murmurs; No JVD, RRR - Sinus finn, No Edema Abdominal: - - BS in all quadrants. Large ventral hernia. Abd diffusely TTP. L colostomy bag in place, without leakage. Extremities: No Edema, No Clubbing, Cyanosis Neurological: Alert and Oriented x 3 Result Diagrams: 09/19/18 14:08 09/19/18 14:08 Assess/Plan/Problems-Billing Assessment: Patient is an 87yof resident of [facility] with PMHx DMII, PD, hypothyroid, CKD stage III who was sent to [facility] in May for "urinary issues." She presents to the ER yesterday with SI and UTI. - Patient Problems (1) UTI (urinary tract infection) Comment: -[facility] since May; has h/o "urinary issues" and was at [facility] in May ; records have been requested -No c/o urinary symptoms today -UA with 3+ LE, + nitrates, bacteria -UC sent -Continue ceftriaxone (day 3) (2) Paranoid delusion Comment: -Pt with paranoid delusions, believing that she is being watched/listened to by son -Pt also states she doesn't want to do this anymore, but denies SI/HI, plans for self harm -This may be baseline, per [facility] staff. Called HCP 09/18 for more information; no response as of yet. -UTI infection may be contributing to confusion/delusions -Psych consulted and notified; recommend [facility] -Depakote level ordered and is low, so likely noncontributory -Currently on depakote, lexapro; continue these home medications (3) Bradycardia Comment: -Pt with symptoms of intermittent dizziness; has been sinus finn throughout visit with rates dropping to high 30's-mid40's -Orthostatics ordered, due to dizzines, especially with position changes -Cardiology consulted (4) Hypothyroid Comment: -TSH 0.19; Free T4 ordered -Levothyroxine from 175 to 126 -Recheck TSH, T4 in 4-6 weeks (5) Diabetes Comment: -BG controlled and ranging from 128-149; outlier of 242 today -Glargine 50 qd -Lispro ss AC, HS (6) CKD (chronic kidney disease) stage 3, GFR 30-59 ml/min Comment: -Cr within baseline range -Will continue to monitor (7) Parkinson disease Comment: -No longer appears to be on PD medications (8) DVT prophylaxis Comment: -Heparin SubQ (9) DNR (do not resuscitate) Comment: -DNR/DNI MOLST form in chart Status and Disposition: Observation. Discharge back to [facility] when stable.
--- NOTE | 2018-09-19 13:49 | CONSULT ---
Consult Consult: ID Ayanna Peck is an 87-year-old grandmother of 18. Has been living [place]. Consult question To psychiatrically assess this 87 yo woman admitted with UTI , expressing SI, who thinks her son is spying on her and laughing at her. HPI Ayanna reports that her son Charles with lives in [place] with a friend, and he is constantly cursing her out through a machine connected to her TV. She reports that when she was in [place] in [place], an nursing home assistant administrator there was going to have her killed because she knew of his infidelity. Son Ramos and his Teresa report that these paranoid thoughts have developed over the past couple years, following the or her when she and he resided in [place] in [place]. Teresa reports that Keegan was the first to develop paranoia, and she followed suit. Charles and Teresa report that [facility] health care proxy had been [facility] Sheldon, but the documentation has somehow been invalidated. Nurse Rodri reports this is incorrect, and paperwork is in the chart. Ayanna reports she sleeps well when she is not awakened in the middle of the night by her son talking over the speaker, but is unable to specify where the speaker is. Reports being depressed because of her perception of the situation with her son Charles. Other symptoms are difficult to gather report of in her current paranoid frame of mind, as each response gravitates back to her concern about being monitored. Past psychiatric history Ramos and Teresa report that Ayanna went to a geropsychiatric unit on [facility] in [place], [place], a few months ago for an evaluation for several days for these paranoid thoughts and other paranoid behaviors that included threatening staff with weapons and barricading herself in her room. MSE - A+Ox3. Paranoid. Tearful when asked if she has thoughts to kill herself, but states she would not act to kill herself. Mood expressed as bursting into tears with a contorted visage when asked what her mood is. Denies AH/VH/HI. Insight, judgment and impulse control all impaired by paranoia, though no lapses of self-control on the medical unit. Assessment and Recommendation Ms Peck has a long-standing paranoid thought process with signs of depressed mood. This has manifested in dangerous situations at [place] lived in in [place], and she remains at risk of recurrence of such dangerous situations if she remains untreated. She would benefit from transfer to a geriatric psychiatric unit for full assessment and treatment in a safe setting. She might benefit from a trial in a safe setting of low dose antipsychotic and antidepressant medications. Diagnosis Delusional disorder, persecutory type. Rule out major depressive disorder with psychotic features.
--- NOTE | 2018-09-19 13:56 | CONSULT ---
Subjective Date of Service: 09/19/18 Interval History: = Admission Date: 09/17/18 consult date 09/19/2018 service Hospitalist CC: Suicidal ideation reason for consult: dizziness HISTORY OF PRESENT ILLNESS: Mrs. Peck is an 87-year-old woman with a history as below admitted with suicidal ideation. While in the hospital she has had sinus bradycardia to around 40 bpm and just below this. At least from today, this episode correlated with what the 1:1 monitor lists as patient sleeping into late this morning which would be consistent with a benign physiologic effect although agree can hold the beta-josh. There is also a Nursing note from morning of 09/18 that noted sinus bradycardia into the high 30' s and patient was apparently paranoid at the time but no mention of dizziness. Patient states she is dizzy at times usually with positional changes first thing in the morning. I tried to have her stand but could not reproduce these symptoms. She does have a longstanding history of chest pain I had previously seen her as a patient treated as presumed angina. She did not want a stress test or any interventions. She is not currently having any chest discomfort She denies syncope. PMHx type 2 diabetes Parkinson's disease hypothyroidism depression peripheral vascular disease GERD. Gout. CKD Hypothyroidism. surgical hx 11. Status post colostomy secondary to diverticulitis. 12. Status post hysterectomy. 13. Status post lumbar spine surgery. 14. Status post carpal tunnel release. 15. Status post appendectomy. 16. Status post knee and shoulder orthopedic procedures. ALLERGIES: To LATEX, SULFA, INDOMETHACIN, and CODEINE. FAMILY HISTORY: As per records, mother, father, and 4 siblings had diabetes. Father of heart disease, mother of stomach cancer. SOCIAL HISTORY: According to records, she is a retired hospital worker. There is no history of tobacco, alcohol, or drug use. She is a resident at [facility] and surrogate decision maker is listed as her son, Sabas Redman, phone number is [phone]. Medications Active Medications: Acetaminophen (Tylenol Tab*) 650 mg PO Q6H PRN PRN Reason: MILD PAIN or TEMP > 100.4 Last Admin: 09/19/18 05:11 Dose: 650 mg Amlodipine Besylate (Norvasc Tab*) 5 mg PO DAILY DEVAN Last Admin: 09/19/18 08:11 Dose: Not Given Aspirin (Aspirin 81 Mg Chew Tab*) 81 mg PO QPM [facility] Last Admin: 09/18/18 17:23 Dose: 81 mg Dextrose (Dextrose 50% Vial 50 Ml*) 25 ml IV PUSH .FOR FS < 60 - SS PRN PRN Reason: FS < 60 Divalproex Sodium (Depakote Er Tab(*)) 250 mg PO QAM [facility] Last Admin: 09/19/18 08:10 Dose: 250 mg Heparin Sodium (Porcine) (Heparin Vial(*)) 5,000 units SUBCUT Q8HR [facility] Last Admin: 09/19/18 05:11 Dose: 5,000 units Ceftriaxone Sodium 1 gm/ (Sodium Chloride) 50 mls @ 100 mls/hr IVPB Q24H [facility] Last Admin: 09/18/18 23:22 Dose: 100 mls/hr Insulin Glargine (Lantus(*)) 50 units SUBCUT DAILY [facility] Last Admin: 09/19/18 08:10 Dose: 50 units Insulin Human Lispro (Humalog*) 0 units SUBCUT ACHS [facility]; Protocol Last Admin: 09/19/18 11:39 Dose: 4 unit Latanoprost (Xalatan 0.005%*) 1 drop BOTH EYES BEDTIME [facility] Last Admin: 09/18/18 21:47 Dose: 1 drop Levothyroxine Sodium (Synthroid Tab*) 125 mcg PO DAILY@0600 [facility] Last Admin: 09/19/18 05:12 Dose: 125 mcg Magnesium Oxide (Magox 400 Tab*) 400 mg PO DAILY [facility] Last Admin: 09/19/18 08:10 Dose: 400 mg Pantoprazole Sodium (Protonix Tab*) 40 mg PO 0800 [facility] Last Admin: 09/19/18 08:10 Dose: 40 mg Pramipexole Dihydrochloride (Mirapex Tab*) 1 mg PO TID [facility] Last Admin: 09/19/18 08:10 Dose: 1 mg Prochlorperazine Edisylate (Compazine Inj*) 5 mg IV Q6H PRN PRN Reason: NAUSEA/VOMITING Last Admin: 09/17/18 23:04 Dose: 5 mg Sertraline HCl (Zoloft*) 50 mg PO DAILY [facility] Last Admin: 09/19/18 08:10 Dose: 50 mg Home Medications: Latanoprost 0.005%* [Xalatan 0.005%*] 1 drop BOTH EYES BEDTIME 10/20/15 [ History Confirmed 09/17/18] Magnesium Oxide TAB* [MagOx 400 TAB*] 400 mg PO DAILY 10/20/15 [History Confirmed 09/17/18] Pramipexole TAB* [Mirapex TAB*] 1 mg PO TID 10/20/15 [History Confirmed 09/17/18 ] Aspirin 81 mg CHEW TAB* 81 mg PO QPM 01/09/17 [History Confirmed 09/17/18] Divalproex ER TAB(*) [Depakote ER TAB(*)] 250 mg PO QAM 10/22/17 [History Confirmed 09/17/18] Isosorbide Mononitrate ER TAB* [Imdur ER TAB*] 60 mg PO DAILY #30 tab.er [Rx Confirmed 09/17/18] Pantoprazole TAB * [Protonix TAB*] 40 mg PO 0800 #0 tab 04/17/18 [Rx Confirmed 09/17/18] Acetaminophen [Tylenol Extra Strength] 500 mg PO DAILY PRN 09/17/18 [History Confirmed 09/17/18] Allopurinol TAB* [Zyloprim 100 MG TAB*] 100 mg PO DAILY 09/17/18 [History Confirmed 09/17/18] Amlodipine Besylate [Amlodipine 2.5 mg tab] 2.5 mg PO DAILY 09/17/18 [History Confirmed 09/17/18] Insulin ASPART (NF) [Novolog (NF)] 10 unit SUBCUT 0830,1230,1730 09/17/18 [ History Confirmed 09/17/18] Insulin Detemir [Levemir Flextouch] 100 unit SUBCUT DAILY 09/17/18 [History Confirmed 09/17/18] Levothyroxine TAB* [Synthroid TAB*] 175 mcg PO DAILY 09/17/18 [History Confirmed 09/17/18] Metoprolol Tartrate TAB* [Lopressor TAB*] 12.5 mg PO DAILY 09/17/18 [History Confirmed 09/17/18] Sertraline HCl [Zoloft] 50 mg PO DAILY 09/17/18 [History Confirmed 09/17/18] amLODIPine TAB* [Norvasc 5 mg TAB*] 5 mg PO DAILY 09/17/18 [History Confirmed ] Review of Systems - Measurements Intake and Output: Intake and Output Last 24 Hours 09/17/18 09/18/18 09/19/18 09/20/18 06:59 06:59 06:59 06:59 Intake Total 110 1630 340 Output Total 300 1485 350 Balance -190 145 -10 Weight 167 lb 1.6 oz Intake: IV Fluids 110 20 IVPB 50 Oral 1560 340 Output: [facility] 300 1485 350 Colostomy 0 Other: Estimated Void Small # Bowel Movements 0 0 # Voids 1 - Review of Systems Constitutional Symptoms: Negative: Weight Gain, Weight Loss Dermatology: Negative: Rash, Skin Lesions HEENT: Negative: Change in Hearing, Vertigo Eyes: Negative: Change in Vision, Double Vision Thyroid: Negative: Weight Loss, Weight Gain Pulmonary: Negative: Asthma, Exercise Intolerance Cardiology: Positive: Chest Pain Negative: Palpitations, Swelling of Ankles, Peripheral Vascular Dis, Edema, Syncope, Claudication, Paroxysmal Nocturnal Dyspnea, Orthopnea Gastroenterology: Negative: Blood in Stools, Change in Bowel Habits, Haematemesis, Melena Genital - Urinary: Negative: Dysuria, Hematuria Musculoskeletal: Negative: Joint Deformities, Kyphoscoliosis Endocrinology: Positive: Obesity Negative: Polydipsia, Polyuria Hematologic/Lymphatic: Positive: Use of Antiplatelet Drugs Negative: Use of Anticoagulant Neurology: Negative: Change in Speech, Change in Sphincter Function, Change in Walking Psychiatry: Negative: Unusual Anxiety, Suicidal Ideation Allergic/Immunologic: Negative: Hx HIV, Immunocompromise Review of Systems Statement: All other review of systems negative, unless stated above. Objective Vital Signs: Temp Pulse Resp BP Pulse Ox 97.5 F 44 15 140/39 99 09/19/18 07:54 09/19/18 07:54 09/19/18 08:00 09/19/18 07:54 09/19/18 07:54 Oxygen Devices in Use Now: None Appearance: nad, pleasant Ears/Nose/Mouth/Throat: Clear Oropharnyx Neck: NL Appearance and Movements; NL JVP Respiratory: Symmetrical Chest Expansion and Respiratory Effort, Clear to Auscultation Cardiovascular: RRR, No Edema, - - 2/6 systolic murmur Abdominal: NL Sounds; No Tenderness; No Distention Extremities: No Clubbing, Cyanosis Skin: No Rash or Ulcers Neurological: Alert and Oriented x 3 Laboratory Results: 09/18/18 05:59 09/18/18 05:59 Total Bilirubin 0.30 mg/dL (0.2-1.0) 09/17/18 16:20 AST 16 U/L (13-39) 09/17/18 16:20 ALT 13 U/L (7-52) 09/17/18 16:20 Alkaline Phosphatase 88 U/L (34-104) 09/17/18 16:20 Total Protein 7.5 g/dL (6.4-8.9) 09/17/18 16:20 Albumin 4.5 g/dL (3.2-5.2) 09/17/18 16:20 Globulin 3.0 g/dL (2-4) 09/17/18 16:20 Albumin/Globulin Ratio 1.5 (1-3) 09/17/18 16:20 TSH 0.19 mcIU/mL (0.34-5.60) L 09/17/18 16:20 09/18/18 09/18/18 09/18/18 01:25 05:59 10:55 Troponin I 0.01 0.01 0.01 EKG Data: 09/17/2018 SB 50 bpm, incomplete rbbb 09/18/2018 NSr RBBB Assessment/Plan Particularly for sinus bradycardia (which may have been physiologic during sleep at least today was based on continuous bedside monitors logbook and/or vagal related to her psychiatric admission), we would need to correlate symptoms (positional lightheadedness/dizziness) to severe bradycardia or pauses in order for a pacemaker to be indicated. Agree with holding rate lowering agents. I left patient a pen and she will record the date and time of her symptoms and we can correlate them to her campus monitor at the time of symptoms.
[2018-09-19 14:17] LABS: ABS Eosinophils 0.2 10^3/ul (0-0.6); ABS Lymphocytes 1.2 10^3/ul (1.0-4.8); ABS Monocytes 0.5 10^3/ul (0-0.8); ABS Neutrophils 5.2 10^3/ul (1.5-7.7); Hematocrit 36 % (35-47); Hemoglobin 11.6 g/dL (12.0-16.0); Mean Corpuscular HGB Conc 33 g/dL (31-36); Mean Corpuscular Hemoglobin 27 pg (27-31); Mean Corpuscular Volume 82 fL (80-97); Mean Platelet Volume 8.5 fL (7.4-10.4); Platelet Count 173 10^3/uL (150-450); Red Blood Count 4.32 10^6 /uL (3.70-4.87); Red Cell Distribution Width 17 % (10-15); White Blood Count 7.2 10^3/uL (3.5-10.8)
[2018-09-19 14:38] LABS: BUN/Creatinine Ratio 30.5 (8-20); Calcium 9.6 mg/dL (8.6-10.3); EGFR African American 52.5 (>60); EGFR Non-African American 43.4 (>60); Potassium 4.2 mmol/L (3.5-5.0)
[2018-09-19] MEDS: Aspirin 81 mg CHEW TAB* 81 MG TAB.CHEW PO SCH (17:34)
[2018-09-19] MEDS: Latanoprost 0.005%* 2.5 ml BTL BOTH EYES SCH (20:15)
[2018-09-19] MEDS: cefTRIAXone(*) 1 GM in NS 0.9% 50 ML* 50 ML IVPB SCH (23:11)
[2018-09-20] MEDS: Levothyroxine TAB* 125 MCG TAB PO SCH (06:07)
[2018-09-20] MEDS: Heparin VIAL(*) 5000 UNITS/ML VIAL (FIVE THOUSAND) SUBCUT SCH ×3 (06:08→21:41)
[2018-09-20] MEDS: Insulin LISPRO* 1 UNITS UNIT SUBCUT SCH ×4 (08:08→22:01)
[2018-09-20] MEDS: Divalproex ER TAB(*) 250 MG PO SCH (08:09)
[2018-09-20] MEDS: Insulin GLARGINE(*) 1 UNITS UNIT SUBCUT SCH (08:09)
[2018-09-20] MEDS: Magnesium Oxide TAB* 400 MG PO SCH (08:10)
[2018-09-20] MEDS: Pantoprazole TAB * 40 MG TAB PO SCH (08:10)
[2018-09-20] MEDS: Pramipexole TAB* 0.5 MG PO SCH ×3 (08:10→21:41)
[2018-09-20] MEDS: amLODIPine TAB* 5 MG PO SCH ×2 (08:10→10:20)
[2018-09-20] MEDS: Sertraline* 50 MG TAB PO SCH (08:11)
[2018-09-20] MEDS ORDERED: Senna TAB 8.6 mg* TAB PO PRN (10:32)
[2018-09-20] MEDS ORDERED: Magnesium Hydroxide LIQ* 30 ML UDC PO PRN (10:32)
[2018-09-20] MEDS ORDERED: Polyethylene Glycol 3350* 17 GM PACKET PO PRN (10:32)
--- NOTE | 2018-09-20 10:34 | PN ---
Subjective Date of Service: 09/20/18 Interval History: Pt states that she had dizziness x1 yesterday, but it passed quickly. She notes she did not record this episode, as suggested by cardiology. She has had no other episodes so far, but notes that she just woke up and has not ambulated yet today. Records from [place] obtained; pt was there for GIB, no urinary issues. She went from [place] to [facility], and arrived at [facility] with manuel in place. It is unclear if she had manuel in place prior to arrival at [place], but patient states she did not. Mixed report from [facility]- may have h/o neurogenic bladder, but did not have manuel prior to May. Pt denies urethral burning since manuel replacement, abx administration. Pt continues to be tearful, paranoid. She denies CP, SOB, abd pain, n/v/d. Notes she has not had BM in 3 days. She denies SI. Pt c/o chest pain described as "crushing" this afternoon. She points to epigastric area/mid chest area. There is no radiation of pain. No associated diaphoresis, SOB. Pain onset was just prior to lunch and resolved within an hour without intervention. Objective Active Medications: Acetaminophen (Tylenol Tab*) 650 mg PO Q6H PRN Amlodipine Besylate (Norvasc Tab*) 5 mg PO DAILY DEVAN Amlodipine Besylate (Norvasc Tab*) 2.5 mg PO DAILY DEVAN Aspirin (Aspirin 81 Mg Chew Tab*) 81 mg PO QPM [facility]AN Dextrose (Dextrose 50% Vial 50 Ml*) 25 ml IV PUSH .FOR FS < 60 - SS PRN Divalproex Sodium (Depakote Er Tab(*)) 250 mg PO QAM [facility] Heparin Sodium (Porcine) (Heparin Vial(*)) 5,000 units SUBCUT Q8HR [facility] Ceftriaxone Sodium 1 gm/ (Sodium Chloride) 50 mls @ 100 mls/hr IVPB Q24H [facility] Insulin Glargine (Lantus(*)) 50 units SUBCUT DAILY [facility] Insulin Human Lispro (Humalog*) 0 units SUBCUT ACHS DEVAN; Protocol Latanoprost (Xalatan 0.005%*) 1 drop BOTH EYES BEDTIME [facility] Levothyroxine Sodium (Synthroid Tab*) 125 mcg PO DAILY@0600 DEVAN Magnesium Oxide (Magox 400 Tab*) 400 mg PO DAILY DEVAN Pantoprazole Sodium (Protonix Tab*) 40 mg PO 0800 DEVAN Pramipexole Dihydrochloride (Mirapex Tab*) 1 mg PO TID DEVAN Prochlorperazine Edisylate (Compazine Inj*) 5 mg IV Q6H PRN Sertraline HCl (Zoloft*) 50 mg PO DAILY DEVAN Vital Signs: Temp Pulse Resp BP Pulse Ox 98.6 F 65 18 158/47 97 09/20/18 07:00 09/20/18 07:00 09/20/18 07:00 09/20/18 07:00 09/20/18 07:00 Oxygen Devices in Use Now: None Appearance: Pt is laying on side sleeping. She wakes easily; she is tearful at times and continues to believe she is being watched by her son and laughed at. She answers questions appropriately and is cooperative. Eyes: No Scleral Icterus Ears/Nose/Mouth/Throat: NL Teeth, Lips, Gums, Clear Oropharnyx, - - Dry oral mucosa Neck: NL Appearance and Movements; NL JVP, Trachea Midline Respiratory: Symmetrical Chest Expansion and Respiratory Effort, Clear to Auscultation Cardiovascular: NL Sounds; No Murmurs; No JVD, RRR, No Edema Abdominal: - - BS in all quadrants. Abd with multiple hernias. Mildly TTP. Extremities: No Edema, No Clubbing, Cyanosis Neurological: Alert and Oriented x 3 Result Diagrams: 09/19/18 14:08 09/19/18 14:08 Microbiology and Other Data: Microbiology 09/17/18 18:34 Urine Culture - Preliminary Urine Escherichia Coli Assess/Plan/Problems-Billing Assessment: Patient is an 87yof resident of [facility] with PMHx DMII, PD, hypothyroid, CKD stage III who was sent to [facility] in May for "urinary issues." She presents to the ER yesterday with SI and UTI. - Patient Problems (1) Chest pain Comment: -Pt c/o chest pain described as "crushing," no radiation, resolved within 1 hour without intervention -EKG sinus finn -Troponin negative x1; trend x3 (2) UTI (urinary tract infection) Comment: -Manuel since May; was at [facility] in May for GIB; no mention of urinary problems; unsure if pt was d/c from [facility] with manuel, or if she had it prior, but pt states it was started at [facility] in May -No c/o urinary symptoms today -UA with 3+ LE, + nitrates, bacteria -UC shows E.coli sensitive to Ceftriaxone -Continue ceftriaxone (day 4) -Bladder training to start 09/20 (3) Paranoid delusion Comment: -Pt with paranoid delusions, believing that she is being watched/listened to by son -Pt also states she doesn't want to do this anymore, but denies SI/HI, plans for self harm -This may be baseline, per [facility] staff. -UTI infection may be contributing to confusion/delusions -Depakote level ordered and is low, so likely noncontributory -Currently on depakote, lexapro; continue these home medications -Psych consulted and notified; recommend [facility]; may benefit from low dose antipsych, such as seroquel -SW consulted; referrals will be placed to geriatric psych units (4) Hypertension Comment: -150's-170's today -Amlodipine 5mg qd -Metoprolol has been held since admission as patient has baseline sinus bradycardia -Add 2.5 mg amlodipine to reach home dose of 7.5 mg daily (5) Bradycardia Comment: -Pt with symptoms of intermittent dizziness; has been sinus finn throughout visit with rates dropping to high 30's-mid40's -Orthostatics ordered, due to dizzines, especially with position changes -Cardiology consulted- recommend tracking symptoms and comparing with tele -Continue to hold rate limiting agents (metoprolol on hold since admission) (6) Hypothyroid Comment: -TSH 0.19; Free T4 ordered -Levothyroxine from 175 to 125 -Recheck TSH, T4 in 4-6 weeks (7) Diabetes Comment: -BG controlled and ranging from 128-281 -Glargine 50 qd -Lispro ss AC, HS (8) CKD (chronic kidney disease) stage 3, GFR 30-59 ml/min Comment: -Cr within baseline range -Will continue to monitor (9) Parkinson disease Comment: -No longer appears to be on PD medications (10) DVT prophylaxis Comment: -Heparin SubQ (11) DNR (do not resuscitate) Comment: -DNR/DNI MOLST form in chart Status and Disposition: Inpatient. SW and CM working towards patient placement in Geriatric Psych facility; referrals sent out.
[2018-09-20] MEDS: Acetaminophen TAB* 325 MG PO PRN ×2 (12:32→21:41)
[2018-09-20] MEDS: Aspirin 81 mg CHEW TAB* 81 MG TAB.CHEW PO SCH (17:17)
--- NOTE | 2018-09-20 17:57 | PN ---
Subjective Date of Service: 09/20/18 Interval History: sinus bradycardia patient had lightheadedness when standing at 12:35 pm this afternoon. Her HR was at least 60 bpm during that time frame excluding symptomatic bradycardia. She had chest pain relieved with tylenol. During that time she had an EKG showing sinus bradycardia in the 40's suggesting a vagal response. Medications Active Medications: Acetaminophen (Tylenol Tab*) 650 mg PO Q6H PRN PRN Reason: MILD PAIN or TEMP > 100.4 Last Admin: 09/20/18 12:32 Dose: 650 mg Amlodipine Besylate (Norvasc Tab*) 5 mg PO DAILY [facility] Last Admin: 09/20/18 08:10 Dose: 5 mg Amlodipine Besylate (Norvasc Tab*) 2.5 mg PO DAILY [facility] Last Admin: 09/20/18 10:20 Dose: 2.5 mg Aspirin (Aspirin 81 Mg Chew Tab*) 81 mg PO QPM [facility] Last Admin: 09/20/18 17:17 Dose: 81 mg Dextrose (Dextrose 50% Vial 50 Ml*) 25 ml IV PUSH .FOR FS < 60 - SS PRN PRN Reason: FS < 60 Divalproex Sodium (Depakote Er Tab(*)) 250 mg PO QAM [facility] Last Admin: 09/20/18 08:09 Dose: 250 mg Docusate Sodium (Colace Cap*) 100 mg PO BID [facility] Heparin Sodium (Porcine) (Heparin Vial(*)) 5,000 units SUBCUT Q8HR [facility] Last Admin: 09/20/18 14:42 Dose: 5,000 units Ceftriaxone Sodium 1 gm/ (Sodium Chloride) 50 mls @ 100 mls/hr IVPB Q24H [facility] Last Admin: 09/19/18 23:11 Dose: 100 mls/hr Insulin Glargine (Lantus(*)) 50 units SUBCUT DAILY [facility] Last Admin: 09/20/18 08:09 Dose: 50 units Insulin Human Lispro (Humalog*) 0 units SUBCUT ACHS [facility]; Protocol Last Admin: 09/20/18 17:19 Dose: Not Given Latanoprost (Xalatan 0.005%*) 1 drop BOTH EYES BEDTIME [facility] Last Admin: 09/19/18 20:15 Dose: 1 drop Levothyroxine Sodium (Synthroid Tab*) 125 mcg PO DAILY@0600 [facility] Last Admin: 09/20/18 06:07 Dose: 125 mcg Magnesium Hydroxide (Milk Of Magnesia Liq*) 30 ml PO BID PRN PRN Reason: CONSTIPATION Magnesium Oxide (Magox 400 Tab*) 400 mg PO DAILY [facility] Last Admin: 09/20/18 08:10 Dose: 400 mg Pantoprazole Sodium (Protonix Tab*) 40 mg PO 0800 [facility] Last Admin: 09/20/18 08:10 Dose: 40 mg Polyethylene Glycol/Electrolytes (Miralax*) 17 gm PO DAILY PRN PRN Reason: CONSTIPATION Pramipexole Dihydrochloride (Mirapex Tab*) 1 mg PO TID [facility] Last Admin: 09/20/18 15:15 Dose: 1 mg Prochlorperazine Edisylate (Compazine Inj*) 5 mg IV Q6H PRN PRN Reason: NAUSEA/VOMITING Last Admin: 09/17/18 23:04 Dose: 5 mg Senna (Senokot 8.6 Mg Tab*) 1 tab PO BEDTIME PRN PRN Reason: CONSTIPATION Sertraline HCl (Zoloft*) 50 mg PO DAILY [facility] Last Admin: 09/20/18 08:11 Dose: 50 mg Objective Vital Signs: Temp Pulse Resp BP Pulse Ox 98.3 F 65 20 178/55 98 09/20/18 15:00 09/20/18 15:00 09/20/18 15:00 09/20/18 15:00 09/20/18 15:00 Oxygen Devices in Use Now: None Appearance: nad, pleasant Ears/Nose/Mouth/Throat: Clear Oropharnyx Neck: NL Appearance and Movements; NL JVP Respiratory: Symmetrical Chest Expansion and Respiratory Effort, Clear to Auscultation Cardiovascular: RRR, No Edema, - - 2/6 systolic murmur Abdominal: NL Sounds; No Tenderness; No Distention Extremities: No Clubbing, Cyanosis Skin: No Rash or Ulcers Neurological: Alert and Oriented x 3 Laboratory Results: 09/19/18 14:08 09/19/18 14:08 Total Bilirubin 0.30 mg/dL (0.2-1.0) 09/17/18 16:20 AST 16 U/L (13-39) 09/17/18 16:20 ALT 13 U/L (7-52) 09/17/18 16:20 Alkaline Phosphatase 88 U/L (34-104) 09/17/18 16:20 Total Protein 7.5 g/dL (6.4-8.9) 09/17/18 16:20 Albumin 4.5 g/dL (3.2-5.2) 09/17/18 16:20 Globulin 3.0 g/dL (2-4) 09/17/18 16:20 Albumin/Globulin Ratio 1.5 (1-3) 09/17/18 16:20 TSH 0.19 mcIU/mL (0.34-5.60) L 09/17/18 16:20 09/18/18 09/18/18 09/18/18 01:25 05:59 10:55 Troponin I 0.01 0.01 0.01 09/20/18 09/20/18 12:55 16:08 Troponin I 0.02 0.02 EKG Data: 09/17/2018 SB 50 bpm, incomplete rbbb 09/18/2018 NSr RBBB Assessment/Plan Patient has asymptomatic sinus bradycardia. This is not an indication for a pacemaker. Telemetry can be discontinued (ordered). Would avoid rate lowering medications. She has had atypical chest pain with no objective evidence of ischemia during or after symptoms. I do not think any further cardiac evaluation or treatment is necessary at this time.
[2018-09-20] MEDS: Docusate CAP* 100 MG PO SCH (21:41)
[2018-09-20] MEDS: Latanoprost 0.005%* 2.5 ml BTL BOTH EYES SCH (22:03)
[2018-09-20] MEDS: cefTRIAXone(*) 1 GM in NS 0.9% 50 ML* 50 ML IVPB SCH (23:53)
[2018-09-21] MEDS: Heparin VIAL(*) 5000 UNITS/ML VIAL (FIVE THOUSAND) SUBCUT SCH ×3 (05:22→21:43)
[2018-09-21] MEDS: Levothyroxine TAB* 125 MCG TAB PO SCH (05:22)
[2018-09-21 05:28] LABS: Hematocrit 32 % (35-47); Hemoglobin 10.2 g/dL (12.0-16.0); Mean Corpuscular HGB Conc 32 g/dL (31-36); Mean Corpuscular Hemoglobin 27 pg (27-31); Mean Corpuscular Volume 83 fL (80-97); Mean Platelet Volume 8.6 fL (7.4-10.4); Platelet Count 145 10^3/uL (150-450); Red Blood Count 3.84 10^6 /uL (3.70-4.87); Red Cell Distribution Width 18 % (10-15); White Blood Count 5.6 10^3/uL (3.5-10.8)
[2018-09-21 05:50] LABS: BUN/Creatinine Ratio 34.2 (8-20); Calcium 9.4 mg/dL (8.6-10.3); EGFR African American 54.7 (>60); EGFR Non-African American 45.2 (>60); Magnesium 1.9 mg/dL (1.9-2.7); Potassium 4.4 mmol/L (3.5-5.0)
[2018-09-21] MEDS: Acetaminophen TAB* 325 MG PO PRN ×2 (08:01→21:43)
[2018-09-21] MEDS: Pramipexole TAB* 0.5 MG PO SCH ×3 (08:02→21:42)
[2018-09-21] MEDS: amLODIPine TAB* 5 MG PO SCH ×2 (08:02→08:03)
[2018-09-21] MEDS: Magnesium Oxide TAB* 400 MG PO SCH (08:02)
[2018-09-21] MEDS: Sertraline* 50 MG TAB PO SCH (08:02)
[2018-09-21] MEDS: Insulin GLARGINE(*) 1 UNITS UNIT SUBCUT SCH (08:04)
[2018-09-21] MEDS: Divalproex ER TAB(*) 250 MG PO SCH (08:04)
[2018-09-21] MEDS: Pantoprazole TAB * 40 MG TAB PO SCH (08:04)
[2018-09-21] MEDS: Docusate CAP* 100 MG PO SCH ×2 (08:04→21:43)
[2018-09-21] MEDS: Insulin LISPRO* 1 UNITS UNIT SUBCUT SCH ×4 (08:05→23:09)
--- NOTE | 2018-09-21 10:27 | PN ---
Subjective Date of Service: 09/21/18 Interval History: Patient resting in bed. Denies chest pain, palpitations, sob. Reports she feels sad because she misses her children. Patient is slightly tearful. Denies urinary symptoms, fever, chills, abd pain. Objective Active Medications: Acetaminophen (Tylenol Tab*) 650 mg PO Q6H PRN PRN Reason: MILD PAIN or TEMP > 100.4 Last Admin: 09/21/18 08:01 Dose: 650 mg Amlodipine Besylate (Norvasc Tab*) 5 mg PO DAILY [facility] Last Admin: 09/21/18 08:02 Dose: 5 mg Amlodipine Besylate (Norvasc Tab*) 2.5 mg PO DAILY [facility] Last Admin: 09/21/18 08:03 Dose: 2.5 mg Aspirin (Aspirin 81 Mg Chew Tab*) 81 mg PO QPM [facility] Last Admin: 09/20/18 17:17 Dose: 81 mg Dextrose (Dextrose 50% Vial 50 Ml*) 25 ml IV PUSH .FOR FS < 60 - SS PRN PRN Reason: FS < 60 Divalproex Sodium (Depakote Er Tab(*)) 250 mg PO QAM [facility] Last Admin: 09/21/18 08:04 Dose: 250 mg Docusate Sodium (Colace Cap*) 100 mg PO BID [facility] Last Admin: 09/21/18 08:04 Dose: 100 mg Heparin Sodium (Porcine) (Heparin Vial(*)) 5,000 units SUBCUT Q8HR [facility] Last Admin: 09/21/18 05:22 Dose: 5,000 units Ceftriaxone Sodium 1 gm/ (Sodium Chloride) 50 mls @ 100 mls/hr IVPB Q24H [facility] Last Admin: 09/20/18 23:53 Dose: 100 mls/hr Insulin Glargine (Lantus(*)) 50 units SUBCUT DAILY [facility] Last Admin: 09/21/18 08:04 Dose: 50 units Insulin Human Lispro (Humalog*) 0 units SUBCUT ACHS [facility]; Protocol Last Admin: 09/21/18 08:05 Dose: 2 unit Latanoprost (Xalatan 0.005%*) 1 drop BOTH EYES BEDTIME [facility] Last Admin: 09/20/18 22:03 Dose: 1 drop Levothyroxine Sodium (Synthroid Tab*) 125 mcg PO DAILY@0600 [facility] Last Admin: 09/21/18 05:22 Dose: 125 mcg Magnesium Hydroxide (Milk Of Magnesia Liq*) 30 ml PO BID PRN PRN Reason: CONSTIPATION Magnesium Oxide (Magox 400 Tab*) 400 mg PO DAILY [facility] Last Admin: 09/21/18 08:02 Dose: 400 mg Pantoprazole Sodium (Protonix Tab*) 40 mg PO 0800 [facility] Last Admin: 09/21/18 08:04 Dose: 40 mg Polyethylene Glycol/Electrolytes (Miralax*) 17 gm PO DAILY PRN PRN Reason: CONSTIPATION Pramipexole Dihydrochloride (Mirapex Tab*) 1 mg PO TID [facility] Last Admin: 09/21/18 08:02 Dose: 1 mg Prochlorperazine Edisylate (Compazine Inj*) 5 mg IV Q6H PRN PRN Reason: NAUSEA/VOMITING Last Admin: 09/17/18 23:04 Dose: 5 mg Senna (Senokot 8.6 Mg Tab*) 1 tab PO BEDTIME PRN PRN Reason: CONSTIPATION Sertraline HCl (Zoloft*) 50 mg PO DAILY [facility] Last Admin: 09/21/18 08:02 Dose: 50 mg Vital Signs - 8 hr 09/21/18 03:47 Temperature 97.8 F Pulse Rate 54 Respiratory 20 Rate Blood Pressure 161/52 (mmHg) O2 Sat by Pulse 97 Oximetry Oxygen Devices in Use Now: None Appearance: Comfortable, NAD Eyes: No Scleral Icterus Ears/Nose/Mouth/Throat: Clear Oropharnyx, Mucous Membranes Moist Neck: NL Appearance and Movements; NL JVP Respiratory: Symmetrical Chest Expansion and Respiratory Effort, Clear to Auscultation Cardiovascular: NL Sounds; No Murmurs; No JVD, RRR, No Edema Abdominal: NL Sounds; No Tenderness; No Distention - Ostomy Lymphatic: No Cervical Adenopathy Extremities: No Edema, No Clubbing, Cyanosis Skin: No Rash or Ulcers Neurological: - - Alert to self and place. Nutrition: Taking PO's Result Diagrams: 09/21/18 04:38 09/21/18 04:38 Additional Lab and Data: Laboratory Results - last 24 hr 09/20/18 09/20/18 09/20/18 12:10 16:08 16:24 WBC RBC Hgb Hct MCV MCH MCHC RDW Plt Count MPV Sodium Potassium Chloride Carbon Dioxide Anion Gap BUN Creatinine Est GFR ( Amer) Est GFR (Non-Af Amer) BUN/Creatinine Ratio Glucose POC Glucose (mg/dL) 110 H 102 H Calcium Magnesium Troponin I 0.02 09/20/18 09/20/18 09/21/18 19:02 21:40 04:38 WBC 5.6 RBC 3.84 Hgb 10.2 L Hct 32 L MCV 83 MCH 27 MCHC 32 RDW 18 H Plt Count 145 L MPV 8.6 Sodium Potassium Chloride Carbon Dioxide Anion Gap BUN Creatinine Est GFR ( Amer) Est GFR (Non-Af Amer) BUN/Creatinine Ratio Glucose POC Glucose (mg/dL) 215 H Calcium Magnesium Troponin I 0.01 09/21/18 09/21/18 09/21/18 04:38 07:34 12:12 WBC RBC Hgb Hct MCV MCH MCHC RDW Plt Count MPV Sodium 140 Potassium 4.4 Chloride 108 Carbon Dioxide 22 Anion Gap 10 BUN 39 H Creatinine 1.14 H Est GFR ( Amer) 54.7 Est GFR (Non-Af Amer) 45.2 BUN/Creatinine Ratio 34.2 H Glucose 163 H POC Glucose (mg/dL) 162 H 241 H Calcium 9.4 Magnesium 1.9 Troponin I Microbiology and Other Data: Microbiology 09/17/18 18:34 Urine Urine Culture - Final Escherichia Coli Pseudomonas Aeruginosa Normal Emily Assess/Plan/Problems-Billing Assessment: Patient is an 87yof resident of [facility] with PMHx DMII, PD, hypothyroid, CKD stage III who was sent to [facility] in May for "urinary issues." She presents to the ER yesterday with SI and UTI. - Patient Problems (1) Chest pain Comment: - Denies chest pain today - Yesterday patient c/o chest pain described as "crushing," no radiation, resolved within 1 hour without intervention. EKG at that time revealed sinus finn. Patient also had repeat troponins which were unremarkable (2) UTI (urinary tract infection) Comment: - Bladder training to be initiated today. Manuel to be removed after successful bladder training. Post void residual to be obtained after first void after manuel removed. - Manuel since May; was at [facility] in May for GIB; no mention of urinary problems; unsure if pt was d/c from [facility] with manuel, or if she had it prior, but pt states it was started at [facility] in May - No c/o urinary symptoms today - UA with 3+ LE, + nitrates, bacteria - UC shows E.coli >100,000 and Pseudomonas Aeruginosa 10 - 25,000 - Continue ceftriaxone (day 5) as Ecoli > 100,000. Will not cover for pseudomonas at this time given low colony count - Changed to Augmentin starting tomorrow in prep for discharge (3) Bradycardia Comment: - Denies dizziness today. - Previously reported intermittent dizziness; has been sinus finn throughout visit with rates dropping to high 30's-mid 40's. In reviewing tele she has bradycardic episodes mostly in the evening and overnight. -Orthostatics ordered and awaiting results. -Cardiology consulted and suspect asymptomatic bradycardia, no indication for pacemaker, avoid rate lowering medications, discontinue tele, and likely atypical chest pain given negative work up (4) CKD (chronic kidney disease) stage 3, GFR 30-59 ml/min Comment: -Cr within baseline range -Will continue to monitor (5) Diabetes Comment: -BG controlled and ranging from 102-281 -Glargine 50 qd -Lispro ss AC, HS (6) Hypertension Comment: - Norvasc increased yesterday to home dose -Metoprolol has been held since admission as patient has baseline sinus bradycardia (7) Hypothyroid Comment: -TSH 0.19; Free T4 ordered -Levothyroxine from 175 to 125 -Recheck TSH, T4 in 4-6 weeks (8) Paranoid delusion Comment: - No paranoid delusions noted today. - Admitted with paranoid delusions, believing that she is being watched/ listened to by son. In addition she stated to admitting provider that she didn' t want to do this anymore, but denied SI/HI, plans for self harm. [facility] was contacted by previous provider and they reported this is baseline for patient. - UTI infection may be contributing to confusion/delusions - Depakote level ordered and is low, so likely noncontributory - Currently on depakote, zoloft; continue these home medications - Psych consulted and notified; recommend [facility]; may benefit from low dose antipsych, such as seroquel - SW consulted; referrals will be placed to geriatric psych units per psych recommendations (9) Parkinson disease Comment: - Cont Mirapex (10) DVT prophylaxis Comment: -Heparin SubQ (11) DNR (do not resuscitate) Comment: -DNR/DNI MOLST form in chart Status and Disposition: Inpatient. SW and CM working towards patient placement in Geriatric Psych facility; referrals sent out. Attending: Nori Ma
[2018-09-21] MEDS: Aspirin 81 mg CHEW TAB* 81 MG TAB.CHEW PO SCH (17:22)
[2018-09-21] MEDS: Latanoprost 0.005%* 2.5 ml BTL BOTH EYES SCH (21:51)
[2018-09-21] MEDS: cefTRIAXone(*) 1 GM in NS 0.9% 50 ML* 50 ML IVPB SCH (23:10)
[2018-09-22] MEDS: Levothyroxine TAB* 125 MCG TAB PO SCH (06:04)
[2018-09-22] MEDS: Heparin VIAL(*) 5000 UNITS/ML VIAL (FIVE THOUSAND) SUBCUT SCH ×2 (06:04→13:57)
[2018-09-22] MEDS ORDERED: Amoxicillin/Clavulanate TAB* 500 MG PO SCH (09:00)
[2018-09-22] MEDS: Insulin GLARGINE(*) 1 UNITS UNIT SUBCUT SCH (09:04)
[2018-09-22] MEDS: Insulin LISPRO* 1 UNITS UNIT SUBCUT SCH ×3 (09:04→17:45)
[2018-09-22] MEDS: Sertraline* 50 MG TAB PO SCH (09:05)
[2018-09-22] MEDS: Pramipexole TAB* 0.5 MG PO SCH ×2 (09:05→13:58)
[2018-09-22] MEDS: Magnesium Oxide TAB* 400 MG PO SCH (09:05)
[2018-09-22] MEDS: amLODIPine TAB* 5 MG PO SCH ×2 (09:05→09:06)
[2018-09-22] MEDS: Docusate CAP* 100 MG PO SCH (09:06)
[2018-09-22] MEDS: Pantoprazole TAB * 40 MG TAB PO SCH (09:06)
[2018-09-22] MEDS: Divalproex ER TAB(*) 250 MG PO SCH (09:08)
--- NOTE | 2018-09-22 14:14 | CONSULT ---
Identification - Patient Identification Reason for Psychiatric Consultation: Suicidal Ideation -: Patient is a 87 year old, F admitted on 09/18/18. - MHU Identification Employment Status: Disabled Hx Psychiatric Hospitalization: Yes History - Objective HPI: Ayanna is seen for psychiatric follow up. Dr. Juarez's note from this weekend is read and appreciated. The patient remains tearful and depressed with passive SI. She denies plan for either self-harm or suicide and contracts for safety to return to [facility], although she does not like it there due to complaints that staff are harassing her. She also endorses delusional beliefs that her children have abandoned her and that people are spying on her and tape recording her conversations. I spoke with her HCP and power of digital sales executive, Maria Del Carmen Sheldon, who indicates that these issues have been ongoing for over a year. The patient apparently got better a year ago after attending inpatient geripsych treatment at [facility], however, she did not tolerate quetiapine and this was subsequently discontinued for making her Parkinson's symptoms worse. [facility] has been contacted and does not currently have available beds. Exam Appearance: Thin Framed Hygiene: Normal Grooming: Well Kept Psychomotor Activities: Normal Exhibits Abnormal Movement: No Attitude and Relatedness: Cooperative Eye Contact: Good - Speech Quality: Unpressured Latencies: Normal Quantity: Appropriate Patient's Decription of Mood: "Terrible" Observed Affect: Tearful Affect Consistent with: Dysphoria Patient's Thought Process: Circumstantial Thought Content: Yes Passive Wish, Yes Paranoid Ideation, No Suicidal Planning, No Homicidal Ideation Experiencing Hallucinations: No, Sensorium is Clear Type of Hallucinations: Visual: No, Auditory: No, Command: No Level of Consciousness: Alert Orientation: Yes Intact, Yes Orientated to Time, Yes Orientated to Place, Yes Orientated to Person Impulse Control: Tenuous Insight and Judgement: Fair Impression - Impression Clinical Impression: 87 year old , white female with a history of dementia presents with depression, paranoia and passive SI. Inpatient DSM-V Dx: F01.50 Merits Inpatient Hospitalization: Yes BSU: Problem List - Patient Problems (1) Major neurocognitive disorder Current Visit: Yes Status: Acute Priority: Medium Code(s): F01.50 - VASCULAR DEMENTIA WITHOUT BEHAVIORAL DISTURBANCE SNOMED Code(s): 407799731 Plan - Treatment Plan Treatment Plan: The patient is quite depressed and has SI but with no plan, intent or means of self-harm. She would benefit from Lyla-Psycy stabilization at [facility], however, there are no beds. She does not require the structure or supervision of the inpatient hospital setting at this time and she could just as easily and safely await referral to lyla-psych care from [facility]. Psychiatry recommends discharge to [facility] with the further recommendation that care management at [facility] pursue referral to [facility]'s lyla-psych program. She is to remain on sertraline for now. Psychiatry is signing off. Continued Medication Management: Continue Outpt Medication Medications: Current Medications Acetaminophen (Tylenol Tab*) 650 mg PO Q6H PRN PRN Reason: MILD PAIN or TEMP > 100.4 Last Admin: 09/21/18 21:43 Dose: 650 mg Amlodipine Besylate (Norvasc Tab*) 5 mg PO DAILY [facility] Last Admin: 09/22/18 09:05 Dose: 5 mg Amlodipine Besylate (Norvasc Tab*) 2.5 mg PO DAILY [facility] Last Admin: 09/22/18 09:06 Dose: 2.5 mg Amoxicillin/Clavulanate Potassium (Augmentin Tab*) 500 mg PO BID [facility] Last Admin: 09/22/18 09:06 Dose: 500 mg Aspirin (Aspirin 81 Mg Chew Tab*) 81 mg PO QPM [facility] Last Admin: 09/21/18 17:22 Dose: 81 mg Dextrose (Dextrose 50% Vial 50 Ml*) 25 ml IV PUSH .FOR FS < 60 - SS PRN PRN Reason: FS < 60 Divalproex Sodium (Depakote Er Tab(*)) 250 mg PO QAM [facility] Last Admin: 09/22/18 09:08 Dose: 250 mg Docusate Sodium (Colace Cap*) 100 mg PO BID [facility] Last Admin: 09/22/18 09:06 Dose: 100 mg Heparin Sodium (Porcine) (Heparin Vial(*)) 5,000 units SUBCUT Q8HR [facility] Last Admin: 09/22/18 13:57 Dose: 5,000 units Insulin Glargine (Lantus(*)) 50 units SUBCUT DAILY [facility] Last Admin: 09/22/18 09:04 Dose: 50 units Insulin Human Lispro (Humalog*) 0 units SUBCUT [facility]; Protocol Last Admin: 09/22/18 13:56 Dose: 1 unit Latanoprost (Xalatan 0.005%*) 1 drop BOTH EYES BEDTIME [facility] Last Admin: 09/21/18 21:51 Dose: 1 drop Levothyroxine Sodium (Synthroid Tab*) 125 mcg PO DAILY@0600 [facility] Last Admin: 09/22/18 06:04 Dose: 125 mcg Magnesium Hydroxide (Milk Of Magnesia Liq*) 30 ml PO BID PRN PRN Reason: CONSTIPATION Magnesium Oxide (Magox 400 Tab*) 400 mg PO DAILY [facility] Last Admin: 09/22/18 09:05 Dose: 400 mg Pantoprazole Sodium (Protonix Tab*) 40 mg PO 0800 [facility] Last Admin: 09/22/18 09:06 Dose: 40 mg Polyethylene Glycol/Electrolytes (Miralax*) 17 gm PO DAILY PRN PRN Reason: CONSTIPATION Pramipexole Dihydrochloride (Mirapex Tab*) 1 mg PO TID [facility] Last Admin: 09/22/18 13:58 Dose: 1 mg Prochlorperazine Edisylate (Compazine Inj*) 5 mg IV Q6H PRN PRN Reason: NAUSEA/VOMITING Last Admin: 09/17/18 23:04 Dose: 5 mg Senna (Senokot 8.6 Mg Tab*) 1 tab PO BEDTIME PRN PRN Reason: CONSTIPATION Sertraline HCl (Zoloft*) 50 mg PO DAILY [facility] Last Admin: 09/22/18 09:05 Dose: 50 mg - Discharge Plan Discharge Plan: Inpatient Hospitalization - [facility]
--- NOTE | 2018-09-22 17:37 | DS ---
CC: Dr. Durant * DISCHARGE SUMMARY: DATE OF ADMISSION: 09/17/18 DATE OF DISCHARGE: 09/22/18 PRIMARY CARE PROVIDER: Dr. Durant. ATTENDING PHYSICIAN: Dr. Manjinder Ma * (dictated by Lucina Brandon NP). PRIMARY DIAGNOSES: 1. Chest pain. 2. Urinary tract infection. 3. Bradycardia. 4. Chronic kidney disease. 5. Diabetes. 6. Hypertension. 7. Hypothyroid. 8. Paranoid delusions. 9. Parkinson's. CONSULTATIONS WHILE IN THE HOSPITAL: 1. Dr. Juarez, Psychiatry. 2. Dr. Bass, Cardiology. 3. Dr. Cardoso, Psychiatry. STUDIES WHILE IN THE HOSPITAL: 1. EKG, impression: Sinus bradycardia, incomplete right bundle-branch block. 2. Repeat echocardiogram: Sinus rhythm. Incomplete right bundle-branch block. 3. EKG: Sinus bradycardia. Incomplete right bundle-branch block. DISCHARGE HOME MEDICATIONS: Continued home medications: 1. Tylenol 500 mg p.o. daily p.r.n. 2. Insulin NovoLog 10 units subcu at 0830, 1230, 1730. 3. Depakote ER 250 mg p.o. q.a.m. 4. Zoloft 50 mg p.o. daily. 5. Magnesium oxide 400 mg p.o. daily. 6. Allopurinol 100 mg p.o. daily. 7. Pantoprazole 40 mg p.o. daily. 8. Amlodipine 2.5 mg p.o. daily. 9. Amlodipine 5 mg p.o. daily. 10. Mirapex 1 mg p.o. t.i.d. 11. Xalatan 1 drop both eyes at bedtime. 12. Aspirin 81 mg p.o. q.p.m. 13. Levemir FlexTouch 100 units subcu daily. Stopped home medications: 1. Imdur 60 mg p.o. daily. 2. Lopressor 12.5 mg p.o. daily. New home medication: 1. Augmentin 500 mg p.o. b.i.d. x5 days. Changed medication: 1. Levothyroxine decreased from 175 mcg to 125 mcg. HISTORY OF PRESENT ILLNESS/HOSPITAL COURSE: Mrs. Peck is an 87-year-old female with past medical history significant for type 2 diabetes, Parkinson disease, hypothyroidism, depression, PVD, GERD; who presented to the emergency department on 09/17/18 with complaints of suicidal ideation from [facility]. Please see history and physical dictated by Laura Arrieta MD, for complete summary of events leading up to hospitalization, but in short, while in the emergency room, the patient did complain of some burning at the urethral area and it was also noted that the patient had a Howell catheter. Given her UA results, there was suspicion for UTI; therefore, the patient was started on ceftriaxone. Given the patient's suicidal ideation and possible UTI, she was admitted to the medical floor for further evaluation and treatment. While on the medical floor, previous provider contacted [facility] where the patient was previously and there seemed to be no indication for long-term Howell catheter; therefore, the patient has been bladder trained and Howell has been removed. The patient has been voiding without difficulty and has no residual volume noted on postvoid residual ultrasound. The patient has been treated for UTI with ceftriaxone. The patient has received approximately 5 days. It should be noted that the patient' s UA grew E. coli greater than 100,000 colonization and pseudomonas with 10,000 to 25,000. Given the pseudomonas and such a low colony count, we are not covering for this and suspect that she is colonized. The patient has been treated for E. coli. The patient has been successfully transitioned to Augmentin in preparation for discharge. As for suicidal ideation, the patient was evaluated by Dr. Juarez and Dr. Vikram Cardoso from Psychiatry. Initially, there was discussion of the patient being transferred to a [facility] facility, but she was reevaluated today by Dr. Cardoso. Dr. Cardoso reports that the patient is quite depressed and has SI, but no plan, intent, or means to harm self. He agrees that the patient would benefit from a geripsych stabilization at [facility]; however, there are currently no beds. He believes that the patient can be safely discharged back to [facility]. The patient's hospitalization was slightly complicated as she did have an episode of chest pain that lasted 1 hour and resolved on its own. The patient' s EKG remained unremarkable. The patient had repeat troponins which were unremarkable. The patient also had some bradycardia noted on telemetry. She was evaluated by Cardiology given the bradycardia and the previous chest pain. It was determined that the patient had asymptomatic bradycardia and atypical chest pain. He recommends the patient hold any rate controlling agents; therefore, she will be discharged no longer taking her metoprolol. In addition , Imdur has been held as this could be causing orthostasis and her dizziness. From a cardiology standpoint, he did not believe she needed a pacemaker and reports she needs no further cardiac workup at this time. The patient is stable for discharge to [facility] today. REVIEW OF SYSTEMS: The patient denies urinary symptoms, fever, chills, chest pain, palpitations, dizziness, shortness of breath. A 14-point review of systems was completed and all were negative. PHYSICAL EXAMINATION: Vital Signs: Temp 98.1, HR 54, RR 18, O2 saturation 100%, BP 147/69. General: Ms. Peck is an 87-year-old female who is sitting in bed. Appears to be in no acute distress. Appears stated age. HEENT: EOMs intact. PERRLA. Oral mucosa is moist without lesion. Posterior pharynx is clear. Neck: Supple. Cardiac: S1, S2 present. Regular rate and rhythm. No murmurs, rubs, or gallops. Respiratory: Lungs are clear. No accessory muscle use. Good aeration. No rhonchi, wheezes, or rales. Abdomen: Soft. The patient has tenderness at hernias, which she reports this is baseline. Bowel sounds normoactive. Ostomy is draining light brown stool. Extremities: No edema. No clubbing or cyanosis. Pedal pulses +2 bilaterally. Skin: Skin is grossly intact. Musculoskeletal: No pain or deformities. Neuro: Neuro exam is grossly intact. The patient is alert and oriented to self , place, and time. Strength is 5/5 in the upper and lower extremities. LABORATORY DATA: WBC 5.6, hemoglobin 10.2, hematocrit 32, platelets 145. Sodium 140, potassium 4.4, chloride 108, carbon dioxide 22, BUN 39, creatinine 1.14, glucose 163. DISCHARGE PLAN/FOLLOWUP: 1. Chest pain: As mentioned above, the patient had 1 episode of chest pain and an unremarkable cardiac workup. She was also evaluated by Cardiology, who deemed this atypical. I would continue the patient's home medications of aspirin and amlodipine and monitor the patient. She should adhere to a heart- healthy diet. 2. UTI: The patient has been successfully bladder trained and Howell has been removed. She has no postvoid residual at this time. I would continue to monitor the patient for postvoid residual if she is noting to have urinary problems. The patient is currently symptom-free. The patient should continue Augmentin 500 mg p.o. b.i.d. x5 more days. 3. Bradycardia: The patient does have some asymptomatic bradycardia primarily when sleeping. The patient's rate control agents have been stopped, specifically metoprolol. The patient does not require a pacemaker or further cardiac workup at this time. If the patient becomes symptomatic with this bradycardia, I would recommend she follow up with Cardiology and/or depending on the severity, return to the emergency department. 4. CKD: The patient has history of chronic kidney disease and her creatinine is at her baseline. 5. Diabetes: The patient should continue her home medications as same. 6. Hypertension: The patient should remain on her home dose of Norvasc which is 7.5 mg p.o. daily. Once again, we are holding her metoprolol due to bradycardia. We have also been holding her Imdur given dizziness and orthostasis. If the patient has hypertension, I feel that it would be reasonable to restart her Imdur at the provider's discretion. 7. Hypothyroid: The patient did have a TSH while here in the hospital. Given TSH of 0.19, there was a decrease made to her levothyroxine. Specifically, the patient was on 175 mcg and she is currently on 125. I would recommend a repeat TSH in 4 to 6 weeks. 8. Paranoid delusions and suicidal ideation: As mentioned above, the patient was evaluated by Psychiatry, who deemed her safe for discharge back to [facility] while she awaits placement at a geriatric facility, specifically [facility] as that is where she was before and did well. I would continue the patient's home medications as same and provide supportive care. I would recommend initiating this referral to [facility]. 9. Parkinson disease: The patient should continue her Mirapex. 10. Depression: The patient should continue her Zoloft. 11. PVD: The patient should continue her aspirin. 12. GERD: The patient should continue her PPI. 13. Gout: The patient should continue her allopurinol. 14. Followup: The patient should be seen by her primary care provider and/or provider at [facility] in 1 to 3 days. Once again, I would recommend a repeat TSH in 4 to 6 weeks. I would also recommend a referral to [facility] per our psychiatry team. 15. Education: The patient was educated on signs and symptoms of new or worsening conditions and when to return to the emergency department. The patient stated understanding. This is a summarized report of a complex medical history and hospital stay. For further details, please see entire medical record. TIME SPENT: Approximately 35 minutes was spent on this discharge, greater than half that time was spent [id number] with the patient discussing discharge plans and instructions. This plan was discussed with my attending, Dr. Manjinder Ma, who is in agreement with my plan of care. Reviewed by LUCINA BRANDON NP 09/29/18 @ 1050 [id number]/CPS #: [id number]
[2018-09-22] MEDS: Aspirin 81 mg CHEW TAB* 81 MG TAB.CHEW PO SCH (17:45)
[2018-09-22 18:29] VITALS: BP 149/56
== END 2018-09-22 18:20 | DRG 699 ==
LOC: ED 15:42 → MED 20:00 → OBSVTOIN 09-18 09:00 → MED 09-19 13:40
PROVIDERS: ADMIT Internal Medicine; ATTEND Internal Medicine
PROC: 0TPBX0Z Removal of Drainage Device from Bladder, External Approach (ICD-10-PCS; principal; 2018-09-19)
DX: T83.511A Infection and inflammatory reaction due to indwelling urethral catheter, initial encounter (principal); R45.851 Suicidal ideations; I13.0 Hypertensive heart and chronic kidney disease with heart failure and stage 1 through stage 4 chronic kidney disease, or unspecified chronic kidney disease; N39.0 Urinary tract infection, site not specified; Y73.1 Therapeutic (nonsurgical) and rehabilitative gastroenterology and urology devices associated with adverse incidents; R07.9 Chest pain, unspecified; R00.1 Bradycardia, unspecified; E11.22 Type 2 diabetes mellitus with diabetic chronic kidney disease; I12.9 Hypertensive chronic kidney disease with stage 1 through stage 4 chronic kidney disease, or unspecified chronic kidney disease; E03.9 Hypothyroidism, unspecified; F22 Delusional disorders; G20 Parkinson's disease; I45.10 Unspecified right bundle-branch block; F32.9 Major depressive disorder, single episode, unspecified; K21.9 Gastro-esophageal reflux disease without esophagitis; E11.51 Type 2 diabetes mellitus with diabetic peripheral angiopathy without gangrene; B96.20 Unspecified Escherichia coli [E. coli] as the cause of diseases classified elsewhere; B96.5 Pseudomonas (aeruginosa) (mallei) (pseudomallei) as the cause of diseases classified elsewhere; M10.9 Gout, unspecified; F41.9 Anxiety disorder, unspecified; I50.9 Heart failure, unspecified; M19.90 Unspecified osteoarthritis, unspecified site; G43.909 Migraine, unspecified, not intractable, without status migrainosus; E11.39 Type 2 diabetes mellitus with other diabetic ophthalmic complication; E11.36 Type 2 diabetes mellitus with diabetic cataract; Z66 Do not resuscitate; F01.50 Vascular dementia, unspecified severity, without behavioral disturbance, psychotic disturbance, mood disturbance, and anxiety; N18.3 Chronic kidney disease, stage 3 (moderate); G25.81 Restless legs syndrome; Z90.710 Acquired absence of both cervix and uterus; Z88.2 Allergy status to sulfonamides; Z88.5 Allergy status to narcotic agent; Y92.9 Unspecified place or not applicable; Z79.4 Long term (current) use of insulin; Z79.82 Long term (current) use of aspirin; Z88.8 Allergy status to other drugs, medicaments and biological substances; Z91.040 Latex allergy status; Z83.3 Family history of diabetes mellitus; Z82.49 Family history of ischemic heart disease and other diseases of the circulatory system; Z80.0 Family history of malignant neoplasm of digestive organs; Z90.49 Acquired absence of other specified parts of digestive tract
CPT/HCPCS: 36415; 80048; 80053; 80164; 80307; 80320; 80329; 81003; 81015; 83735; 84436; 84439; 84443; 84484; 85025; 85027; 87077; 87086; 87184; 87186; 93005; 99283; A9270-GY; G0480; J0696; J0780; J1644; J2270

== ENCOUNTER 2018-12-19 01:39 | Emergency (ER) | payer MEDICARE, BC, OTHER ==
[2018-12-19] MEDS ORDERED: Tetan/Diph/Pertus SYR(Tdap)* 0.5 ML SYR(BOOSTRIX) use SYR contains LATEX IM ONE (01:55)
--- NOTE | 2018-12-19 01:55 | ED ---
Adult Trauma - HPI Summary HPI Summary: Patient is a 88 y/o F presenting to [facility] via EMS with chief complaint of fall. It is reported that the patient had fallen out of her bed and struck her face against something. There is a laceration to her nasal bridge. She additionally has complaints of left hand, right knee pain. Patient is unsure of last tetanus shot. On director [employer], nothing is noted to aggravate/alleviate Sx. Home medications and allergies are reviewed. - History of Current Complaint Stated Complaint: FALL PER EMS Time Seen by Provider: 12/19/18 01:41 EDT Hx Obtained From: Patient Mechanism of Injury: Fall Restraints: None Onset/Duration: Still Present Onset of Pain: Prior to Arrival Pain Scale Used: 0-10 Numeric Location: Head - nose, Extremities - right knee, left hand Aggravating Factor(s): Nothing Alleviating Factor(s): Nothing Associated Signs & Symptoms: Positive: Other: - nasal bridge laceration, right knee pain, left hand pain - Additional Pertinent History Primary Care Physician: KYM - Allergy/Home Medications Allergies/Adverse Reactions: Allergies Allergy/AdvReac Type Severity Reaction Status Date / Time latex Allergy Intermediate Hives/Diff. Verified 12/19/18 01:57 EDT Breathing/I tching Sulfa (Sulfonamide Allergy Intermediate Hives/Rash Verified 12/19/18 01:57 EDT Antibiotics) indomethacin Allergy Unknown Verified 12/19/18 01:57 EDT Reaction Details codeine AdvReac Mild GI Upset Verified 12/19/18 01:57 EDT PMH/Surg Hx/FS Hx/Imm Hx Endocrine/Hematology History: Reports: Hx Diabetes, Hx Thyroid Disease - hypothyroidism Cardiovascular History: Reports: Hx Cardiomegaly, Hx Congestive Heart Failure, Hx Hypertension Denies: Hx Pacemaker/ICD, Hx Peripheral Vascular Disease Respiratory History: Denies: Hx Asthma, Hx Chronic Obstructive Pulmonary Disease (COPD) GI History: Reports: Hx Gastroesophageal Reflux Disease, Hx Gastrointestinal Bleed, Hx Hiatal Hernia, Other GI Disorders - has a colostomy, Hx diverticulitis History: Reports: Hx Chronic Renal Failure Denies: Hx Renal Disease Musculoskeletal History: Reports: Hx Arthritis, Hx Gout, Other Musculoskeletal History - Bilateral knee replacements, shoulder surgeries Sensory History: Reports: Hx Cataracts, Hx Contacts or Glasses - reading, has them here, Hx Glaucoma, Hx Hearing Aid - b/l, has them here, Hx Hearing Problem - [facility] Opthamlomology History: Reports: Hx Cataracts, Hx Contacts or Glasses - reading , has them here, Hx Glaucoma Neurological History: Reports: Hx Dementia, Hx Headaches, Hx Migraine, Hx Nerve Disease - restless legs syndrome, Hx Seizures - myoclonic, Other Neuro Impairments/Disorders - parkinson's Psychiatric History: Reports: Hx Anxiety, Hx Depression, Other Psychiatric Issues/Disorders - auditory hallucinations Denies: Hx Panic Disorder, Hx of Violent Episodes Against Others - Cancer History Cancer Type, Location and Year: skin Hx Chemotherapy: No - Surgical History Surgery Procedure, Year, and Place: HYSTERECTOMY, APPY, CHOLECYSTECTOMY, HX OF COLOSTOMY. partial bowel obstruction,. glaucoma eye surgery x3, bilateral knees, right shoulder, bladder x2 Hx Anesthesia Reactions: No Infectious Disease History: Reports: Hx of Known/Suspected MRSA - Family History Known Family History: Negative: Renal Disease - Social History Alcohol Use: None Hx Substance Use: No Substance Use Type: Reports: None Hx Tobacco Use: No Smoking Status (MU): Never Smoked Tobacco Review of Systems Musculoskeletal: Other - positive - fall, right knee pain, left hand pain Skin: Other - positive - nasal bridge laceration All Other Systems Reviewed And Are Negative: Yes Physical Exam - Summary Physical Exam Summary: Constitutional: Well-developed, Well-nourished, Alert. (+) Mild respiratory distress Skin: Warm, Dry; HENT: Normocephalic; Laceration to nasal bridge Eyes: Conjunctiva normal Neck: Musculoskeletal ROM normal neck. (-) JVD, (-) Stridor, (-) Tracheal deviation Cardio: Rhythm regular, rate normal, Heart sounds normal; Intact distal pulses; Radial pulses are 2+ and symmetric. (-) Murmur Pulmonary/Chest wall: Effort normal. (+) Mild respiratory distress, (-) Wheezes , (-) Rales Abd: Soft, (-) tenderness, (-) Distension, (-) Guarding, (-) Rebound Musculoskeletal: Abrasion and tenderness to right knee, ecchymosis and tenderness to left hand (-) Edema Lymph: (-) Cervical adenopathy Neuro: Alert, Oriented x3 Psych: Mood and affect Normal Triage Information Reviewed: Yes Vital Signs On Initial Exam: Initial Vitals Temp Pulse Resp BP Pulse Ox 97.3 F 65 20 137/76 97 12/19/18 01:56 EDT 12/19/18 01:56 EDT 12/19/18 01:56 EDT 12/19/18 01:56 EDT 12/19/18 01:56 EDT Vital Signs Reviewed: Yes - Paulo Coma Scale Best Eye Response: 4 - Spontaneous Best Motor Response: 6 - Obeys Commands Best Verbal Response: 5 - Oriented Coma Scale Total: 15 Procedures - Sedation Patient Received Moderate/Deep Sedation with Procedure: No Diagnostics - Laboratory Lab Statement: Any lab studies that have been ordered have been reviewed, and results considered in the medical decision making process. - Radiology RIGHT KNEE X-RAY Radiology Interpretation Completed By: ED Physician Summary of Radiographic Findings: NO FRACTURE, PENDING OFFICAL LEFT HAND X-RAY Radiology Interpretation Completed By: ED Physician Summary of Radiographic Findings: NO FRACTURE, PENDING OFFICIAL REPORT. CXR Radiology Interpretation Completed By: ED Physician Summary of Radiographic Findings: NO ACUTE PROCESS, PENDING OFFICIAL REPORT. - CT BRAIN CT CT Interpretation Completed By: Radiologist Summary of CT Findings: IMPRESSION: 1. No traumatic intracranial abnormalities. 2. Age-related atrophy and mild chronic small vessel ischemic disease. THIS REPORT WAS REVIEWED BY DR. BONILLA MAXILLOFACIAL CT CT Interpretation Completed By: Radiologist Summary of CT Findings: IMPRESSION: Acute traumatic nasal bone fracture. THIS REPORT WAS REVIEWED BY DR. BONILLA. CERVICAL SPINE CT CT Interpretation Completed By: Radiologist Summary of CT Findings: IMPRESSION: 1. No cervical spine traumatic abnormalities. 2. Moderate multilevel cervical spondylopathy. THIS REPORT WAS REVIEWED BY DR. BONILLA. Re-Evaluation - Re-Evaluation First Eval Re-Evaluation Time: 03:08 Change: Improved Comment: Laceration repaired with dermabond and steri-strips. Adult Trauma Course/Dx - Course Course Of Treatment: Patient is an 88-year-old half-way resident who was brought here after mechanical fall. Patient had a laceration on her nose which was successfully repaired with Dermabond. Patient is given tetanus. Patient's CT scan of her brain, cervical spine, maxillofacial which showed a nasal fracture. Patient had no septal hematoma. Patient also had x-ray of her chest , hand, knee which were all unremarkable. Patient was sent back to her half-way. - Diagnoses Provider Diagnoses: Nasal fracture Discharge ED - Sign-Out/Discharge Documenting (check all that apply): Patient Departure - discharge - Discharge Plan Condition: Stable Disposition: HOME Patient Education Materials: Nasal Fracture (ED) Referrals: Giorgio Durant MD [Primary Care Provider] - 3 Days Additional Instructions: PLEASE RETURN TO EMERGENCY DEPARTMENT FOR ANY NEW OR WORSENING SYMPTOMS. Please follow up with your primary care physician. Please make all follow-ups in 1-3 days unless I advise you otherwise. - Billing Disposition and Condition Condition: STABLE Disposition: Home - Attestation Statements Document Initiated by Sherry: Yes Documenting Scribe: ANANT JACINTO Provider For Whom Sherry is Documenting (Include Credential): YESSY BONILLA MD Scribe Attestation: I, ANANT JACINTO, scribed for YESSY BONILLA MD on 12/19/18 at 0530. Scribe Documentation Reviewed: Yes Provider Attestation: The documentation as recorded by the scribeANANT accurately reflects the service I personally performed and the decisions made by me, YESSY BONILLA MD Status of Scribe Document: Viewed
[2018-12-19 04:17] VITALS: BP 137/76
== END 2018-12-19 02:59 | disposition home or self-care (01) ==
LOC: ED 01:39
DX: S02.2XXA Fracture of nasal bones, initial encounter for closed fracture (principal); Z23 Encounter for immunization; W06.XXXA Fall from bed, initial encounter; Y92.003 Bedroom of unspecified non-institutional (private) residence as the place of occurrence of the external cause; E03.9 Hypothyroidism, unspecified; I50.9 Heart failure, unspecified; K21.9 Gastro-esophageal reflux disease without esophagitis; E11.22 Type 2 diabetes mellitus with diabetic chronic kidney disease; I13.0 Hypertensive heart and chronic kidney disease with heart failure and stage 1 through stage 4 chronic kidney disease, or unspecified chronic kidney disease; N18.9 Chronic kidney disease, unspecified; F03.90 Unspecified dementia, unspecified severity, without behavioral disturbance, psychotic disturbance, mood disturbance, and anxiety; F41.9 Anxiety disorder, unspecified; F32.9 Major depressive disorder, single episode, unspecified; Z85.828 Personal history of other malignant neoplasm of skin; Z90.710 Acquired absence of both cervix and uterus; Z90.49 Acquired absence of other specified parts of digestive tract; Z88.5 Allergy status to narcotic agent; Z88.2 Allergy status to sulfonamides; Z88.8 Allergy status to other drugs, medicaments and biological substances; Z91.040 Latex allergy status
CPT/HCPCS: 70450; 70486; 71045; 72125; 90471; 90715; 99283